=== PATIENT | female | born 1980 | race Hispanic/Latino ===

== ENCOUNTER 2018-01-10 08:48 | Emergency (ER) | payer OTHER, SELFPAY ==
[2018-01-10 08:55] VITALS: BP 150/83; PULSE 66; RESP 18; TEMP 36.4; O2SAT 99; BMI 36.1
--- NOTE | 2018-01-10 08:56 | DI.RAD.S_ITS ---
PROCEDURE: XR CHEST 1V INDICATIONS: chest pain TECHNIQUE: One view of the chest was acquired. COMPARISON: [facility], , CHEST 2 VIEW, 02/06/2014, 7:35. FINDINGS: Surgical changes and devices: None. Lungs and pleura: No pleural effusions or pneumothorax. Lungs are clear. Mediastinum: Mediastinal contours appear normal. Heart size is normal. Bones and chest wall: No suspicious bony lesions. Overlying soft tissues appear unremarkable. IMPRESSION: No significant acute abnormality is seen. Dictated by: Kevin Sanchez M.D. on 01/10/2018 at 8:13 Approved by: Kevin Sanchez M.D. on 01/10/2018 at 8:14
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
[2018-01-10 09:20] LABS: Add Manual Diff / Slide Review NO; Basophils Percent Auto 0.5 % (0-2); Eosinophils Percent Auto 2.4 % (2-4); Hematocrit 40.9 % (36-46); Hemoglobin 13.8 g/dL (12.0-16.0); Lymphocytes Percent Auto 27.9 % (25-40); Mean Corpuscular HGB Conc 33.7 % (30-36); Mean Corpuscular Hemoglobin 28.4 PG (26-34); Mean Corpuscular Volume 84.3 fL (80-100); Monocytes Percent Auto 8.3 % (3-14); Neutrophils Absolute Auto 4100 /uL (3000-5900); Neutrophils Percent Auto 60.9 % (50-75); Platelet Count 340 X10^3/uL (150-400); Red Blood Cell Count 4.85 X10^6/uL (4.0-5.2); Red Cell Distribution Width 14.2 % (11.6-14.8); White Blood Cell Count 6.7 X10^3/uL (4.5-11.0)
[2018-01-10 09:26] LABS: Blood Urea Nitrogen 12 mg/dL (7-17); Calcium 9.6 mg/dL (8.4-10.2); Carbon Dioxide 28 mmol/L (22-32); Chloride 103 mmol/L (98-107); Estimated Glomerular Filt Rate > 60.0 mL/min (>60); Glucose 99 mg/dL (70-100); HEMOLYSIS < 15 (0-50); Potassium 3.9 mmol/L (3.4-5.1); Sodium 143 mmol/L (137-145)
[2018-01-10 09:39] LABS: Troponin I < 0.012 ng/mL (0.01-0.034)
[2018-01-10 10:03] LABS: Thyroid Stimulating Hormone 5.15 uIU/mL (0.47-4.68)
[2018-01-10 10:15] VITALS: BP 132/68; PULSE 114; RESP 14; O2SAT 95
[2018-01-10 10:35] VITALS: BP 113/69; PULSE 58; RESP 17; O2SAT 99
== END 2018-01-10 10:44 | disposition home or self-care (01) ==
PROVIDERS: Emergency Provider Emergency Medicine; PCP Family Medicine
DX: R07.89 Other chest pain (principal); R79.89 Other specified abnormal findings of blood chemistry; R20.2 Paresthesia of skin
CPT/HCPCS: 36591; 71045; 80048; 84443; 84484; 85025; 93005; 93041; 99283; 99285

== ENCOUNTER 2018-07-08 00:58 | Emergency (ER) | payer OTHER, SELFPAY ==
[2018-07-08 01:05] VITALS: BP 147/85; PULSE 80; RESP 18; TEMP 36.7; O2SAT 99
[2018-07-08 02:24] LABS: Bacteria Urine None Seen; RBC Urine None Seen (0-5/HPF); WBC Urine None Seen (0-5/HPF)
[2018-07-08 02:27] LABS: Appearance Urine UA SL CLOUDY; Bilirubin Urine UA NEGATIVE (NEGATIVE); Color Urine UA YELLOW; Glucose Urine UA NEGATIVE (Negative); Ketones Urine UA NEGATIVE (NEGATIVE); Leukocyte Esterase Urine UA NEGATIVE (NEGATIVE); Nitrite Urine UA NEGATIVE (Negative); Occult Blood Urine UA TRACE-LYSED (Negative); Protein Urine UA NEGATIVE (Negative); Urobilinogen Urine UA 0.2 E.U./dL (0.2); pH Urine UA 7.5 (4.5-8.0)
[2018-07-08 02:29] LABS: Amorphous Sediment Urine 2+; Squamous Epithelial Cell Urine 0-1 /HPF
[2018-07-08 02:30] LABS: Culture Indicated Urine Cult Not Indicated
[2018-07-08 02:35] LABS: Add Manual Diff / Slide Review NO; Basophils Absolute Auto 0 /uL (0-100); Basophils Percent Auto 0.5 % (0-2); Eosinophils Absolute Auto 100 /uL (0-450); Eosinophils Percent Auto 1.1 % (2-4); Lymphocytes Absolute Auto 1800 /uL (1100-4500); Lymphocytes Percent Auto 21.6 % (25-40); Mean Corpuscular HGB Conc 33.2 % (30-36); Mean Corpuscular Volume 81.2 fL (80-100); Monocytes Absolute Auto 600 /uL (0-900); Monocytes Percent Auto 7.6 % (3-14); Neutrophils Absolute Auto 5700 /uL (1500-7000); Neutrophils Percent Auto 69.2 % (50-75); Platelet Count 310 X10^3/uL (150-400); Red Blood Cell Count 4.81 X10^6/uL (4.0-5.2); Red Cell Distribution Width 14.8 % (11.6-14.8); White Blood Cell Count 8.2 X10^3/uL (4.5-11.0)
[2018-07-08] MEDS: SODIUM CHLORIDE 0.9% 1,000 ML 1000 ML IV (02:37)
[2018-07-08] MEDS: ONDANSETRON 4 MG/2 ML INJ IV (02:37)
[2018-07-08 02:42] LABS: Alanine Aminotransferase 83 IU/L (9-52); Albumin 4.8 g/dL (3.5-5.0); Albumin Globulin Ratio 1.4 (1.0-2.8); Alkaline Phosphatase 83 U/L (38-126); Aspartate Aminotransferase 43 IU/L (14-36); Bilirubin Total 0.2 mg/dL (0.2-1.3); Blood Urea Nitrogen 12 mg/dL (7-17); Calcium 9.5 mg/dL (8.4-10.2); Carbon Dioxide 21 mmol/L (22-32); Chloride 104 mmol/L (98-107); Estimated Glomerular Filt Rate > 60.0 mL/min (>60); Globulin 3.5 g/dL (1.7-4.1); Glucose 140 mg/dL (70-100); HEMOLYSIS < 15 (0-50); Potassium 3.8 mmol/L (3.4-5.1); Sodium 138 mmol/L (137-145); Total Protein 8.3 g/dL (6.3-8.2)
--- NOTE | 2018-07-08 03:06 | DI.CT.S_ITS ---
PROCEDURE: CT ABDOMEN PELVIS W CON INDICATIONS: Left lower quadrant abdominal pain TECHNIQUE: After the administration of intravenous contrast, 5 mm thick sections acquired from the diaphragm to the symphysis. 5 mm coronal and sagittal reformats were acquired. For radiation dose reduction, the following was used: automated exposure control, adjustment of mA and/or kV according to patient size. COMPARISON: [facility], CT, PE STUDY (CTA CHEST), 02/06/2014, 8:18. [facility], CT, ABDOMEN W&WO CONTRAST, 06/03/2017, 15:32. FINDINGS: Image quality: Excellent. ABDOMEN: Lung bases: A stable 5 mm noncalcified left lower lobe nodule (axial image 11, series 3). Lung bases are otherwise clear. Heart size is normal. Solid organs: Liver is normal in size and enhancement. Gallbladder is normal in CT appearance.. Biliary system is non dilated. Pancreas enhances normally. Spleen is normal in size and enhancement. There are 2 adrenal nodules as before. The larger, more lateral adrenal nodule is stable in appearance measuring approximately 4.2 x 3.7 cm. The smaller, more medial nodule measures approximately 2.1 x 1.7 cm. Both are stable in size. Kidneys demonstrate normal size and enhancement, without hydronephrosis. Stable appearance of small right renal hypodensities which are too small to accurately characterize but likely represent cysts. Peritoneum and bowel: Bowel loops demonstrate normal wall thickness and caliber. No free fluid or air. Numerous fluid filled loops of small bowel are noted throughout the abdomen. Short segment of mildly distended small bowel in the left lower abdomen. The visualized appendix appears normal. Nodes and vessels: No retroperitoneal or mesenteric adenopathy by size criteria. Aorta and inferior vena cava are normal in size. Miscellaneous: There is a fat containing umbilical hernia without acute inflammation. PELVIS: Genitourinary: Bladder wall thickness is normal. Miscellaneous: No inguinal hernias or adenopathy. Bones: No suspicious bony lesions. No vertebral body compression fractures. IMPRESSION: 1. Several loops of fluid-filled small bowel and a short segment of mildly distended small bowel in the left lower abdomen is nonspecific and may represent enteritis, either infectious or inflammatory in etiology. Distended segment of bowel may be related to ileus secondary to an inflammatory/infectious process. No evidence for bowel obstruction. 2. Other chronic findings as described above also appear stable. Of note, the noncalcified 5 mm left lower lobe pulmonary nodule has remained stable since 02/06/2014 and is consistent with a benign process. Findings are concordant with preliminary radiology report. Dictated by: Eric Desai M.D. on 07/08/2018 at 8:24 Approved by: Eric Desai M.D. on 07/08/2018 at 9:00
--- NOTE | 2018-07-08 03:08 | ED.ABDPAIN ---
HPI - Abdominal Pain General Chief Complaint: Abdominal Pain Stated Complaint: severe abd pain, vomitting Time Seen by Provider: 07/08/18 02:50 Source: patient Mode of arrival: ambulatory Limitations: no limitations History of Present Illness HPI narrative: Patient complains of left lower quadrant abdominal pain that started suddenly at 7 o'clock this morning. Patient states that she has been vomiting. She denies diarrhea or other change in bowel habits. No dysuria or hematuria. Patient has no history of kidney stones. She does have a history of of ovarian cysts, but has never had a rupture. Patient denies any fevers or chills. She has states she has been shaking from the pain, but has not actually felt chilled. The patient states she is otherwise healthy. She has given 4 children, and her last period was about a week ago. Patient does not think she is . Patient states that no kidney stones from the family, though her mother did have a bowel obstruction repeatedly. Related Data Home Medications Medication Instructions Recorded Confirmed multivitamin 1 tab PO DAILY 01/10/18 07/08/18 Previous Rx's Medication Instructions Recorded hydrocodone-acetaminophen 1 tab PO Q4-6H PRN #14 tab 07/08/18 ondansetron 4 mg PO QID PRN #20 tab 07/08/18 Allergies Allergy/AdvReac Type Severity Reaction Status Date / Time Influenza Virus Vaccines AdvReac Mild GOT REALLY Unverified 07/07/18 10:58 [INFLUENZA VIRUS VACCINES] SICK levofloxacin [LEVOFLOXACIN] AdvReac Mild DIZZY/VOMIT Verified 07/07/18 10:58 ING Penicillins [PENICILLINS] AdvReac Mild DIZZY/VOMIT Verified 07/07/18 10:58 ING Review of Systems Constitutional Denies chills, Denies fever(s), Denies lethargy and Denies weakness Eyes Denies change in vision, Denies eye discharge, Denies irritation and Denies loss of vision ENT Ears, Nose, Mouth, and Throat: Denies change in voice, Denies neck pain and Denies sore throat Cardiovascular Denies chest pain, Denies irregular heart rhythm, Denies lightheadedness, Denies palpitations, Denies dyspnea, Denies dyspnea on exertion and Denies orthopnea Respiratory Denies cough, Denies dyspnea, Denies dyspnea on exertion and Denies wheezing Gastrointestinal Gastrointestinal: Reports abdominal pain, Denies change in bowel habits, Denies diarrhea, Denies nausea and Reports vomiting Genitourinary Denies hematuria, Denies flank pain, Denies urinary incontinence and Denies urinary urgency Musculoskeletal Denies neck pain Integumentary/Breasts Denies pruritus, Denies erythema, Denies rash and Denies wounds Neurologic Denies confusion, Denies loss of vision and Denies weakness Psychiatric Denies anxiety, Denies confusion, Denies depression, Denies homicidal ideation and Denies suicidal ideation Endocrine Denies palpitations Hematologic/Lymphatic Denies easy bruising Allergic/Immunologic Denies wheezing [facility] Medical History Healthy adult (Acute) Surgical History History of third molar tooth extraction History of tonsillectomy Social History Smoking Status: Never smoker alcohol intake: current (occasionally) Social History Smoking Status: Never smoker alcohol intake: current Exam Initial Vital Signs Initial Vital Signs: Vital Signs Temperature 98.1 F 07/08/18 01:05 Pulse Rate 80 07/08/18 01:05 Respiratory Rate 18 07/08/18 01:05 Blood Pressure 147/85 H 07/08/18 01:05 Pulse Oximetry 99 07/08/18 01:05 Const General: cooperative and well developed Nutritional Appearance: well nourished Orientation: alert, awake, oriented x3 and not confused [facility] Head: normocephalic and atraumatic Ears: external ears normal Nose: external nose normal and No nasal discharge Face and sinus: face symmetric and No dry mucous membranes Mouth: oral mucosae normal and moist mucous membranes Teeth and gingiva: dentition normal Eyes General: appearance normal, both eyes and all related structures Eyelids: eyelids normal Conjunctivae: conjunctivae normal Sclera: sclerae normal Pupils: PERRL EOM: EOM intact bilaterally Neck Neck: normal visual inspection, trachea midline, No lymphadenopathy, No midline deformity and No JVD Lymphatic: No lymphedema Chest Chest: normal inspection of the chest Resp Effort & Inspection: normal respiratory effort, able to speak in complete sentences, no respiratory distress and no use of accessory muscles Auscultation: clear to auscultation bilaterally, no rales, no rhonchi and no wheezes Cardio Rate: regular rate Rhythm: regular rhythm Heart Sounds: no click, no gallops, no murmurs and no rubs Pulses: normal peripheral pulses GI Inspection: non-distended Palpation: soft, no hepatosplenomegaly, No guarding, No pulsatile mass and tender (Moderate, left lower quadrant.) Back/Spine/Pelvis Back: No CVA tenderness Cervical Spine: cervical ROM normal and No pain with cervical ROM Thoracic/Lumbar Spine: thoracic and lumbar spine normal to inspection Skin General: no rashes or lesions noted, No jaundice and No petechiae Neuro General: alert, oriented x3, gait normal and no focal motor deficits Speech: speech normal Extrem General: full ROM, no clubbing, cyanosis or edema, no pedal edema and no calf tenderness Psych Appearance: well kempt Mental Status: mental status grossly normal Attitude: cooperative Thought Content: normal and suicidality Judgment: judgment good Course Course Narrative: Patient was generally well appearing, but did appear somewhat uncomfortable. She was given analgesia and antiemetics, as well as a L bolus 0.9 normal saline. She was worked up with labs, urinalysis, and CT of the abdomen and pelvis. Patient's entire workup was unremarkable. I discussed this with the patient, and we did discuss possible etiologies for the discomfort. The only finding on her CT was a possible mild ileus and her colon. This may be causing some discomfort, particularly when the patient eats. We have discussed high-fiber diet as well as drinking plenty of fluids. We have also discussed decreasing meat in the patient's diet. At this point, I felt the patient was stable for discharge home. She was feeling better after symptomatic intervention. We have discussed the usual indications for return. Orders Ordered: Discontinued Medications Hydromorphone HCl (Dilaudid) 0.5 mg IV NOW ONE Stop: 07/08/18 05:28 Last Admin: 07/08/18 05:34 Dose: 0.5 mg Sodium Chloride (Normal Saline 0.9%) 1,000 mls @ 1,000 mls/hr IV BOLUS ONE Stop: 07/08/18 02:54 Last Infusion: 07/08/18 04:00 Dose: 0 mls/hr Admin: 07/08/18 02:37 Dose: 1,000 mls/hr Ketorolac Tromethamine (Toradol) 30 mg IV NOW ONE Stop: 07/08/18 04:44 Last Admin: 07/08/18 04:46 Dose: 30 mg Ondansetron HCl (Zofran) 4 mg IV NOW ONE Stop: 07/08/18 01:56 Last Admin: 07/08/18 02:37 Dose: 4 mg Vital Signs - 8 hr 07/08/18 01:05 Temperature 98.1 F Pulse Rate 80 Respiratory Rate 18 Blood Pressure 147/85 H Pulse Oximetry 99 MDM - Abdominal Pain Medical Records Attestation: I reviewed the patient's medical records. Lab Data Attestation: I reviewed the patient's lab results. Result diagrams: 07/08/18 02:20 07/08/18 02:20 Lab Results 07/08/18 07/08/18 07/08/18 Range/Units 01:20 02:20 02:20 WBC 8.2 (4.5-11.0) X10^3/uL RBC 4.81 (4.0-5.2) X10^6/uL Hgb 13.0 (12.0-16.0) g/dL Hct 39.0 (36-46) % MCV 81.2 (80-100) fL MCH 27.0 (26-34) PG MCHC 33.2 (30-36) % RDW 14.8 (11.6-14.8) % Plt Count 310 (150-400) X10^3/uL Neut % (Auto) 69.2 (50-75) % Lymph % (Auto) 21.6 L (25-40) % [place] % (Auto) 7.6 (3-14) % Eos % (Auto) 1.1 L (2-4) % Baso % (Auto) 0.5 (0-2) % Neut # (Auto) 5700 (0479-9680) /uL Lymph # (Auto) 1800 (8561-2663) /uL [place] # (Auto) 600 (0-900) /uL Eos # (Auto) 100 (0-450) /uL Baso # (Auto) 0 (0-100) /uL Sodium 138 (137-145) mmol/L Potassium 3.8 (3.4-5.1) mmol/L Chloride 104 (98-107) mmol/L Carbon Dioxide 21 L (22-32) mmol/L BUN 12 (7-17) mg/dL Creatinine 0.60 (0.52-1.04) mg/dL Estimated GFR > 60.0 (>60) mL/min BUN/Creatinine Ratio 20.0 (6-22) Glucose 140 H (70-100) mg/dL Calcium 9.5 (8.4-10.2) mg/dL Total Bilirubin 0.2 (0.2-1.3) mg/dL AST 43 H (14-36) IU/L ALT 83 H (9-52) IU/L Alkaline Phosphatase 83 (38-126) U/L Total Protein 8.3 H (6.3-8.2) g/dL Albumin 4.8 (3.5-5.0) g/dL Globulin 3.5 (1.7-4.1) g/dL Albumin/Globulin Ratio 1.4 (1.0-2.8) Urine Color Yellow Urine Appearance Sl cloudy Urine pH 7.5 (4.5-8.0) Ur Specific [place] 1.020 (1.000-1.035) Urine Protein Negative (Negative) Urine Glucose (UA) Negative (Negative) g/dL Urine Ketones Negative (NEGATIVE) Urine Occult Blood Trace-lysed (Negative) Urine Nitrate Negative (Negative) Urine Bilirubin Negative (NEGATIVE) Urine Urobilinogen 0.2 (0.2) E.U./dL Ur Leukocyte Esterase Negative (NEGATIVE) Urine RBC None seen (0-5/HPF) Urine WBC None seen (0-5/HPF) Ur Squamous Epith Cells 0-1 /hpf Amorphous Sediment 2+ Urine Bacteria None seen (None) Ur Culture Indicated? Cult not indicated Point of care testing: Urine Dip Bedside Urine Glucose Negative Bedside Urine Bilirubin - Negative Bedside Urine Ketone - Negative Urine Specific [place] 1.015 Bedside Urine Occult Blood - Negative Bedside Urine pH 8.0 Bedside Urine Protein +/- 15 Bedside Urine Urobilinogen - Negative Bedside Urine Nitrite - Negative Bedside Urine Leukocytes - Negative Esterase Imaging Data CT scan - abdomen: Radiologist's impression: CT Scan Report Signed Patient: Nadira Guerrier [facility]#: [id number] : 1980Acct:[id number] Age/Sex: 38 / FDate of Service: 07/08/18 Loc: ED Accession Number: [id number] Procedure: CT abdomen pelvis w con Ordering Provider: Chitra Bliss MD PROCEDURE: CT ABDOMEN PELVIS W CON INDICATIONS: Left lower quadrant abdominal pain TECHNIQUE: After the administration of intravenous contrast, 5 mm thick sections acquired from the diaphragm to the symphysis. 5 mm coronal and sagittal reformats were acquired. For radiation dose reduction, the following was used: automated exposure control, adjustment of mA and/or kV according to patient size. COMPARISON: Merged With [facility], CT, PE STUDY (CTA CHEST), 02/06/2014, 8:18. Merged With [facility], CT, ABDOMEN W&WO CONTRAST, 06/03/2017, 15:32. FINDINGS: Image quality: Excellent. ABDOMEN: Lung bases: A stable 5 mm noncalcified left lower lobe nodule (axial image 11, series 3). Lung bases are otherwise clear. Heart size is normal. Solid organs: Liver is normal in size and enhancement. Gallbladder is normal in CT appearance.. Biliary system is non dilated. Pancreas enhances normally. Spleen is normal in size and enhancement. There are 2 adrenal nodules as before. The larger, more lateral adrenal nodule is stable in appearance measuring approximately 4.2 x 3.7 cm. The smaller, more medial nodule measures approximately 2.1 x 1.7 cm. Both are stable in size. Kidneys demonstrate normal size and enhancement, without hydronephrosis. Stable appearance of small right renal hypodensities which are too small to accurately characterize but likely represent cysts. Peritoneum and bowel: Bowel loops demonstrate normal wall thickness and caliber. No free fluid or air. Numerous fluid filled loops of small bowel are noted throughout the abdomen. Short segment of mildly distended small bowel in the left lower abdomen. The visualized appendix appears normal. Nodes and vessels: No retroperitoneal or mesenteric adenopathy by size criteria. Aorta and inferior vena cava are normal in size. Miscellaneous: There is a fat containing umbilical hernia without acute inflammation. PELVIS: Genitourinary: Bladder wall thickness is normal. Miscellaneous: No inguinal hernias or adenopathy. Bones: No suspicious bony lesions. No vertebral body compression fractures. IMPRESSION: 1. Several loops of fluid-filled small bowel and a short segment of mildly distended small bowel in the left lower abdomen is nonspecific and may represent enteritis, either infectious or inflammatory in etiology. Distended segment of bowel may be related to ileus secondary to an inflammatory/infectious process. No evidence for bowel obstruction. 2. Other chronic findings as described above also appear stable. Of note, the noncalcified 5 mm left lower lobe pulmonary nodule has remained stable since 02/06/2014 and is consistent with a benign process. Findings are concordant with preliminary radiology report. Dictated by: Eric Desai M.D. on 07/08/2018 at 8:24 Approved by: Eric Desai M.D. on 07/08/2018 at 9:00 Discharge Plan Departure Patient Disposition: Home Clinical Impression: Abdominal pain Qualifiers: Abdominal location: left lower quadrant Qualified Code(s): R10.32 - Left lower quadrant pain Discharge Date/Time: 07/08/18 05:50 Interventions: ED Discharge Assessment Last Done: 07/08/18 05:50 Instructions: DI for Abdominal Pain-Adult Activity Restrictions/Additional Instructions: Urine labs show a normal white blood cell count and a normal urinalysis. Additionally, your CT scan looks great. There is no evidence of a serious condition causing your pain. The cause of your pain is not clear. Please take the medication, as needed. If your symptoms worsen, please follow up with your doctor for further evaluation. Prescriptions: New ondansetron 4 mg tablet,disintegrating 4 mg PO QID PRN (Reason: nausea and vomiting) Qty: 20 RF: 0 hydrocodone-acetaminophen 5-325 mg tablet 1 tab PO Q4-6H PRN (Reason: pain) Qty: 14 RF: 0 No Action multivitamin Tablet 1 tab PO DAILY RF: 0 Referrals: Sylwia Portillo DO [Primary Care Provider] -
--- NOTE | 2018-07-08 03:13 | ED_ITS ---
HPI - Abdominal Pain General Chief Complaint: Abdominal Pain Stated Complaint: severe abd pain, vomitting Time Seen by Provider: 07/08/18 02:50 Source: patient Mode of arrival: ambulatory Limitations: no limitations History of Present Illness HPI narrative: Patient complains of left lower quadrant abdominal pain that started suddenly at 7 o'clock this morning. Patient states that she has been vomiting. She denies diarrhea or other change in bowel habits. No dysuria or hematuria. Patient has no history of kidney stones. She does have a history of of ovarian cysts, but has never had a rupture. Patient denies any fevers or chills. She has states she has been shaking from the pain, but has not actually felt chilled. The patient states she is otherwise healthy. She has given 4 children, and her last period was about a week ago. Patient does not think she is . Patient states that no kidney stones from the family, though her mother did have a bowel obstruction repeatedly. Related Data Home Medications Medication Instructions Recorded Confirmed multivitamin 1 tab PO DAILY 01/10/18 07/08/18 Previous Rx's Medication Instructions Recorded hydrocodone-acetaminophen 1 tab PO Q4-6H PRN #14 tab 07/08/18 ondansetron 4 mg PO QID PRN #20 tab 07/08/18 Allergies Allergy/AdvReac Type Severity Reaction Status Date / Time Influenza Virus Vaccines AdvReac Mild GOT REALLY Unverified 07/07/18 10:58 [INFLUENZA VIRUS VACCINES] SICK levofloxacin [LEVOFLOXACIN] AdvReac Mild DIZZY/VOMIT Verified 07/07/18 10:58 ING Penicillins [PENICILLINS] AdvReac Mild DIZZY/VOMIT Verified 07/07/18 10:58 ING Review of Systems Constitutional Denies chills, Denies fever(s), Denies lethargy and Denies weakness Eyes Denies change in vision, Denies eye discharge, Denies irritation and Denies loss of vision ENT Ears, Nose, Mouth, and Throat: Denies change in voice, Denies neck pain and Denies sore throat Cardiovascular Denies chest pain, Denies irregular heart rhythm, Denies lightheadedness, Denies palpitations, Denies dyspnea, Denies dyspnea on exertion and Denies orthopnea Respiratory Denies cough, Denies dyspnea, Denies dyspnea on exertion and Denies wheezing Gastrointestinal Gastrointestinal: Reports abdominal pain, Denies change in bowel habits, Denies diarrhea, Denies nausea and Reports vomiting Genitourinary Denies hematuria, Denies flank pain, Denies urinary incontinence and Denies urinary urgency Musculoskeletal Denies neck pain Integumentary/Breasts Denies pruritus, Denies erythema, Denies rash and Denies wounds Neurologic Denies confusion, Denies loss of vision and Denies weakness Psychiatric Denies anxiety, Denies confusion, Denies depression, Denies homicidal ideation and Denies suicidal ideation Endocrine Denies palpitations Hematologic/Lymphatic Denies easy bruising Allergic/Immunologic Denies wheezing [facility] Medical History Healthy adult (Acute) Surgical History History of third molar tooth extraction History of tonsillectomy Social History Smoking Status: Never smoker alcohol intake: current (occasionally) Social History Smoking Status: Never smoker alcohol intake: current Exam Initial Vital Signs Initial Vital Signs: Vital Signs Temperature 98.1 F 07/08/18 01:05 Pulse Rate 80 07/08/18 01:05 Respiratory Rate 18 07/08/18 01:05 Blood Pressure 147/85 H 07/08/18 01:05 Pulse Oximetry 99 07/08/18 01:05 Const General: cooperative and well developed Nutritional Appearance: well nourished Orientation: alert, awake, oriented x3 and not confused [facility] Head: normocephalic and atraumatic Ears: external ears normal Nose: external nose normal and No nasal discharge Face and sinus: face symmetric and No dry mucous membranes Mouth: oral mucosae normal and moist mucous membranes Teeth and gingiva: dentition normal Eyes General: appearance normal, both eyes and all related structures Eyelids: eyelids normal Conjunctivae: conjunctivae normal Sclera: sclerae normal Pupils: PERRL EOM: EOM intact bilaterally Neck Neck: normal visual inspection, trachea midline, No lymphadenopathy, No midline deformity and No JVD Lymphatic: No lymphedema Chest Chest: normal inspection of the chest Resp Effort & Inspection: normal respiratory effort, able to speak in complete sentences, no respiratory distress and no use of accessory muscles Auscultation: clear to auscultation bilaterally, no rales, no rhonchi and no wheezes Cardio Rate: regular rate Rhythm: regular rhythm Heart Sounds: no click, no gallops, no murmurs and no rubs Pulses: normal peripheral pulses GI Inspection: non-distended Palpation: soft, no hepatosplenomegaly, No guarding, No pulsatile mass and tender (Moderate, left lower quadrant.) Back/Spine/Pelvis Back: No CVA tenderness Cervical Spine: cervical ROM normal and No pain with cervical ROM Thoracic/Lumbar Spine: thoracic and lumbar spine normal to inspection Skin General: no rashes or lesions noted, No jaundice and No petechiae Neuro General: alert, oriented x3, gait normal and no focal motor deficits Speech: speech normal Extrem General: full ROM, no clubbing, cyanosis or edema, no pedal edema and no calf tenderness Psych Appearance: well kempt Mental Status: mental status grossly normal Attitude: cooperative Thought Content: normal and suicidality Judgment: judgment good Course Course Narrative: Patient was generally well appearing, but did appear somewhat uncomfortable. She was given analgesia and antiemetics, as well as a L bolus 0.9 normal saline. She was worked up with labs, urinalysis, and CT of the abdomen and pelvis. Patient's entire workup was unremarkable. I discussed this with the patient, and we did discuss possible etiologies for the discomfort. The only finding on her CT was a possible mild ileus and her colon. This may be causing some discomfort, particularly when the patient eats. We have discussed high-fiber diet as well as drinking plenty of fluids. We have also discussed decreasing meat in the patient's diet. At this point, I felt the patient was stable for discharge home. She was feeling better after symptomatic intervention. We have discussed the usual indications for return. Orders Ordered: Discontinued Medications Hydromorphone HCl (Dilaudid) 0.5 mg IV NOW ONE Stop: 07/08/18 05:28 Last Admin: 07/08/18 05:34 Dose: 0.5 mg Sodium Chloride (Normal Saline 0.9%) 1,000 mls @ 1,000 mls/hr IV BOLUS ONE Stop: 07/08/18 02:54 Last Infusion: 07/08/18 04:00 Dose: 0 mls/hr Admin: 07/08/18 02:37 Dose: 1,000 mls/hr Ketorolac Tromethamine (Toradol) 30 mg IV NOW ONE Stop: 07/08/18 04:44 Last Admin: 07/08/18 04:46 Dose: 30 mg Ondansetron HCl (Zofran) 4 mg IV NOW ONE Stop: 07/08/18 01:56 Last Admin: 07/08/18 02:37 Dose: 4 mg Vital Signs - 8 hr 07/08/18 01:05 Temperature 98.1 F Pulse Rate 80 Respiratory Rate 18 Blood Pressure 147/85 H Pulse Oximetry 99 MDM - Abdominal Pain Medical Records Attestation: I reviewed the patient's medical records. Lab Data Attestation: I reviewed the patient's lab results. Result diagrams: 07/08/18 02:20 07/08/18 02:20 Lab Results 07/08/18 07/08/18 07/08/18 Range/Units 01:20 02:20 02:20 WBC 8.2 (4.5-11.0) X10^3/uL RBC 4.81 (4.0-5.2) X10^6/uL Hgb 13.0 (12.0-16.0) g/dL Hct 39.0 (36-46) % MCV 81.2 (80-100) fL MCH 27.0 (26-34) PG MCHC 33.2 (30-36) % RDW 14.8 (11.6-14.8) % Plt Count 310 (150-400) X10^3/uL Neut % (Auto) 69.2 (50-75) % Lymph % (Auto) 21.6 L (25-40) % [place] % (Auto) 7.6 (3-14) % Eos % (Auto) 1.1 L (2-4) % Baso % (Auto) 0.5 (0-2) % Neut # (Auto) 5700 (0984-4642) /uL Lymph # (Auto) 1800 (4792-6419) /uL [place] # (Auto) 600 (0-900) /uL Eos # (Auto) 100 (0-450) /uL Baso # (Auto) 0 (0-100) /uL Sodium 138 (137-145) mmol/L Potassium 3.8 (3.4-5.1) mmol/L Chloride 104 (98-107) mmol/L Carbon Dioxide 21 L (22-32) mmol/L BUN 12 (7-17) mg/dL Creatinine 0.60 (0.52-1.04) mg/dL Estimated GFR > 60.0 (>60) mL/min BUN/Creatinine Ratio 20.0 (6-22) Glucose 140 H (70-100) mg/dL Calcium 9.5 (8.4-10.2) mg/dL Total Bilirubin 0.2 (0.2-1.3) mg/dL AST 43 H (14-36) IU/L ALT 83 H (9-52) IU/L Alkaline Phosphatase 83 (38-126) U/L Total Protein 8.3 H (6.3-8.2) g/dL Albumin 4.8 (3.5-5.0) g/dL Globulin 3.5 (1.7-4.1) g/dL Albumin/Globulin Ratio 1.4 (1.0-2.8) Urine Color Yellow Urine Appearance Sl cloudy Urine pH 7.5 (4.5-8.0) Ur Specific [place] 1.020 (1.000-1.035) Urine Protein Negative (Negative) Urine Glucose (UA) Negative (Negative) g/dL Urine Ketones Negative (NEGATIVE) Urine Occult Blood Trace-lysed (Negative) Urine Nitrate Negative (Negative) Urine Bilirubin Negative (NEGATIVE) Urine Urobilinogen 0.2 (0.2) E.U./dL Ur Leukocyte Esterase Negative (NEGATIVE) Urine RBC None seen (0-5/HPF) Urine WBC None seen (0-5/HPF) Ur Squamous Epith Cells 0-1 /hpf Amorphous Sediment 2+ Urine Bacteria None seen (None) Ur Culture Indicated? Cult not indicated Point of care testing: Urine Dip Bedside Urine Glucose Negative Bedside Urine Bilirubin - Negative Bedside Urine Ketone - Negative Urine Specific [place] 1.015 Bedside Urine Occult Blood - Negative Bedside Urine pH 8.0 Bedside Urine Protein +/- 15 Bedside Urine Urobilinogen - Negative Bedside Urine Nitrite - Negative Bedside Urine Leukocytes - Negative Esterase Imaging Data CT scan - abdomen: Radiologist's impression: CT Scan Report Signed Patient: Nadira Guerrier [facility]#: [id number] : 1980Acct:[id number] Age/Sex: 38 / FDate of Service: 07/08/18 Loc: ED Accession Number: [id number] Procedure: CT abdomen pelvis w con Ordering Provider: Chitra Bliss MD PROCEDURE: CT ABDOMEN PELVIS W CON INDICATIONS: Left lower quadrant abdominal pain TECHNIQUE: After the administration of intravenous contrast, 5 mm thick sections acquired from the diaphragm to the symphysis. 5 mm coronal and sagittal reformats were acquired. For radiation dose reduction, the following was used: automated exposure control, adjustment of mA and/or kV according to patient size. COMPARISON: [facility], CT, PE STUDY (CTA CHEST), 02/06/2014, 8:18. [facility], CT, ABDOMEN W&WO CONTRAST, 06/03/2017, 15:32. FINDINGS: Image quality: Excellent. ABDOMEN: Lung bases: A stable 5 mm noncalcified left lower lobe nodule (axial image 11, series 3). Lung bases are otherwise clear. Heart size is normal. Solid organs: Liver is normal in size and enhancement. Gallbladder is normal in CT appearance.. Biliary system is non dilated. Pancreas enhances normally. Spleen is normal in size and enhancement. There are 2 adrenal nodules as before. The l arger, more lateral adrenal nodule is stable in appearance measuring approximately 4.2 x 3.7 cm. The smaller, more medial nodule measures approximately 2.1 x 1.7 cm. Both are stable in size. Kidneys demonstrate normal size and enhancement, without hydronephrosis. Stable appearance of small right renal hypodensities which are too small to accurately characterize but likely represent cysts. Peritoneum and bowel: Bowel loops demonstrate normal wall thickness and caliber. No free fluid or air. Numerous fluid filled loops of small bowel are noted throughout the abdomen. Short segment of mildly distended small bowel in the left lower abdomen. The visualized appendix appears normal. Nodes and vessels: No retroperitoneal or mesenteric adenopathy by size criteria. Aorta and inferior vena cava are normal in size. Miscellaneous: There is a fat containing umbilical hernia without acute inflammation. PELVIS: Genitourinary: Bladder wall thickness is normal. Miscellaneous: No inguinal hernias or adenopathy. Bones: No suspicious bony lesions. No vertebral body compression fractures. IMPRESSION: 1. Several loops of fluid-filled small bowel and a short segment of mildly distended small bowel in the left lower abdomen is nonspecific and may represent enteritis, either infectious or inflammatory in etiology. Distended segment of bowel may be re lated to ileus secondary to an inflammatory/infectious process. No evidence for bowel obstruction. 2. Other chronic findings as described above also appear stable. Of note, the noncalcified 5 mm left lower lobe pulmonary nodule has remained stable since 02/06/2014 and is consistent with a benign process. Findings are concordant with preliminary radiology report. Dictated by: Eric Desai M.D. on 07/08/2018 at 8:24 Approved by: Eric Desai M.D. on 07/08/2018 at 9:00 Discharge Plan Departure Patient Disposition: Home Clinical Impression: Abdominal pain Qualifiers: Abdominal location: left lower quadrant Qualified Code(s): R10.32 - Left lower quadrant pain Discharge Date/Time: 07/08/18 05:50 Interventions: ED Discharge Assessment Last Done: 07/08/18 05:50 Instructions: DI for Abdominal Pain-Adult Activity Restrictions/Additional Instructions: Urine labs show a normal white blood cell count and a normal urinalysis. Additionally, your CT scan looks great. There is no evidence of a serious condition causing your pain. The cause of your pain is not clear. Please take the medication, as needed. If your symptoms worsen, please follow up with your doctor for further evaluation. Prescriptions: New ondansetron 4 mg tablet,disintegrating 4 mg PO QID PRN (Reason: nausea and vomiting) Qty: 20 RF: 0 hydrocodone-acetaminophen 5-325 mg tablet 1 tab PO Q4-6H PRN (Reason: pain) Qty: 14 RF: 0 No Action multivitamin Tablet 1 tab PO DAILY RF: 0 Referrals: Sylwia Portillo DO [Primary Care Provider] -
[2018-07-08] MEDS: KETOROLAC 60 MG/2 ML VIAL 30 MG IV (04:46)
[2018-07-08 04:55] VITALS: BP 117/63; PULSE 68; RESP 16; O2SAT 97
[2018-07-08] MEDS: HYDROMORPHONE 1 MG INJ 0.5 MG IV (05:34)
== END 2018-07-08 05:50 | disposition home or self-care (01) ==
PROVIDERS: Emergency Provider Emergency Medicine; PCP Family Medicine
DX: R10.32 Left lower quadrant pain (principal)
CPT/HCPCS: 36591; 74177; 80053; 81001; 81003; 85025; 96361; 96374; 96375; 99283; 99284; J1170; J1885; J2405; Q9967

== ENCOUNTER → 2018-10-07 12:47 | Outpatient (CLI) | payer OTHER, SELFPAY ==
--- NOTE | 2018-10-07 12:50 | DI.US.S_ITS ---
LIMITED ULTRASOUND OF RIGHT BREAST: 10/07/2018 CLINICAL: Bilat nipple discharge. [facility] Real-time ultrasound of the right breast retroareolar was performed on the area of interest. IMPRESSION: NEGATIVE There is no sonographic evidence of malignancy. There is no abnormality seen in the right breast to correspond with the discharge from the nipple in the sub-areolar depth, however, clinical followup is recommended. A 1 year screening mammogram is recommended. This exam was interpreted at Station ID: [id number]. Electronically Signed By: Bennie chaidez/[place]:10/17/2018 07:49:56 letter sent: Clinical Evaluation Ultrasound BI-RADS: 1 Negative
--- NOTE | 2018-10-07 12:50 | DI.MG.S_ITS ---
BILATERAL DIGITAL DIAGNOSTIC MAMMOGRAM 3D/2D: 10/07/2018 CLINICAL: Baseline exam. Bilateral nipple discharge and Left breast pain. No prior exams were available for comparison. There are scattered fibroglandular elements in both breasts. No significant masses, calcifications, or other findings are seen in either breast. IMPRESSION: INCOMPLETE: NEEDS ADDITIONAL IMAGING EVALUATION There is no abnormality seen in either breast to correspond with the discharge from the nipple in the sub-areolar depth, however, ultrasound is recommended. This exam was interpreted at Station ID: [id number]. NOTE: For mammograms, a report in lay terms will be sent to the patient. Approximately 15% of breast malignancies will not be visualized mammographically. In the management of a palpable breast mass, a negative mammogram must not discourage biopsy of a clinically suspicious lesion. Electronically Signed By: Bennie chaidez/[place]:10/07/2018 13:30:28 ACR BI-RADS Category 0: Incomplete [id number]
--- NOTE | 2018-10-07 12:50 | DI.US.S_ITS ---
LIMITED ULTRASOUND OF LEFT BREAST: 10/07/2018 CLINICAL: Bilat nipple discharge, lt nipple pain. [facility] is [facility] Real-time ultrasound of the left breast retroareolar was performed on the area of interest. IMPRESSION: NEGATIVE There is no sonographic evidence of malignancy. There is no abnormality seen in the left breast to correspond with the discharge from the nipple and pain in the sub-areolar depth, however, clinical followup is recommended. A 1 year screening mammogram is recommended. This exam was interpreted at Station ID: [id number]. Electronically Signed By: Bennie chaidez/[place]:10/17/2018 07:50:37 letter sent: Clinical Evaluation Ultrasound BI-RADS: 1 Negative
== END ==
PROVIDERS: PCP Family Medicine; Visit Provider Nurse Practitioner Family
DX: R92.8 Other abnormal and inconclusive findings on diagnostic imaging of breast (principal); N64.52 Nipple discharge; N64.4 Mastodynia
CPT/HCPCS: 76642; 77066; G0279

== ENCOUNTER → 2018-10-18 15:20 | Outpatient (CLI) | payer OTHER, SELFPAY ==
[2018-10-18 16:33] LABS: BUN Creatinine Ratio 17.1 (6-22); Blood Urea Nitrogen 12 mg/dL (7-17); Calcium 9.5 mg/dL (8.4-10.2); Carbon Dioxide 26 mmol/L (22-32); Chloride 104 mmol/L (98-107); Estimated Glomerular Filt Rate > 60.0 mL/min (>60); Glucose 88 mg/dL (70-100); HEMOLYSIS < 15 (0-50); Potassium 4.1 mmol/L (3.4-5.1); Sodium 140 mmol/L (137-145)
[2018-10-18 17:04] LABS: TSH w/ Reflex to FT4 1.14 uIU/mL (0.47-4.68)
== END ==
PROVIDERS: PCP Family Medicine; Visit Provider Nurse Practitioner Family
DX: N64.52 Nipple discharge (principal)
CPT/HCPCS: 36415; 80048; 84146; 84443

== ENCOUNTER → 2019-03-20 10:55 | Outpatient (CLI) | payer OTHER, SELFPAY | PROVIDERS: PCP Family Medicine | DX: Z23 Encounter for immunization (principal) | CPT/HCPCS: 90471; 90686 ==

== ENCOUNTER 2019-06-28 18:11 | Emergency (ER) | payer OTHER, SELFPAY ==
[2019-06-28 18:26] VITALS: BP 173/76; PULSE 76; RESP 20; TEMP 36.6; O2SAT 100
--- NOTE | 2019-06-28 18:34 | ED_ITS ---
HPI - Arrhythmia/Palpitations General Chief Complaint: Arrhythmia/Palpitations Stated Complaint: palpitations, shoulder pain Time Seen by Provider: 06/28/19 18:34 Source: patient and family Mode of arrival: Ambulatory Limitations: no limitations History of Present Illness HPI narrative: This is a 39-year-old female comes emergency department with complaint of palpitations. She occasionally will feel an extra beat although today she had several extra beats in a row. She also feels sort of tight in between her shoulder blades. She states she tried some stretching and did not find it helpful. She has been doing a lot of online classes and states this might be causing some of the back discomfort because she sitting in a computer for long periods of time. She has not had any fevers, she denies any chills, she denies any cough cold or congestion. She denies any anterior chest pain except when she lay down made her feel little bit uncomfortable. She has not had any shortness of breath currently. She does not have any symptoms currently at this time. She denies any vomiting she states she has maybe felt a little nauseated or just ?achy in her stomach?. She has not had any abdominal pain. She has had a little bit urinary frequency but no dysuria urgency or incontinence. She was slightly constipated but had some veins and that resolved. She has not any swelling in her extremities. She denies any medical issues other than having retic fevers a kid, she was hospitalized had antibiotics had ultrasound was told everything was fine with her heart otherwise. She states she was told this was because she had a strep infection was not caught and ultimately led to this. She had a surgical tonsillectomy, penicillin allergy with no tobacco, rare alcohol, no illicit. Patient does not have any other family history no cardiac, cardiac arrhythmias, pulmonary or embolic history. Related Data Home Medications Medication Instructions Recorded Confirmed multivitamin 1 tab PO DAILY 01/10/18 04/21/19 Previous Rx's Medication Instructions Recorded nystatin-triamcinolone 100,000 1 applictn TOP BID PRN #15 gram 03/28/19 unit/g-0.1 % topical cream nitrofurantoin monohyd/m-cryst 100 mg PO BID #10 cap 06/28/19 [Macrobid] Allergies Allergy/AdvReac Type Severity Reaction Status Date / Time Influenza Virus Vaccines AdvReac Mild GOT REALLY Verified 06/28/19 20:55 [INFLUENZA VIRUS VACCINES] SICK levofloxacin [LEVOFLOXACIN] AdvReac Mild DIZZY/VOMIT Verified 06/28/19 20:55 ING Penicillins [PENICILLINS] AdvReac Mild DIZZY/VOMIT Verified 06/28/19 20:55 ING Review of Systems Review of Systems ROS Unobtainable: All systems reviewed & are unremarkable except as noted in HPI and below Patient History Medical History Healthy adult (Acute) Surgical History History of third molar tooth extraction History of tonsillectomy Social History Smoking Status: Never smoker alcohol intake: current Smoking Status: Never smoker alcohol intake frequency: holidays/special occasions only Substance Use Type: does not use Exam Narrative Exam Narrative: GENERAL: Alert and oriented x three, obese, well-appearing female in mild distress. HEENT: Head normocephalic, atraumatic, EOMI, pupils reactive, face symmetric, moist mucous membranes NECK: Supple, full range of motion CARDIOVASCULAR: Regular rate and rhythm without murmurs, rubs or gallops. No JVD. No swelling in lower extremities. RESPIRATORY: Breath sounds equal bilaterally, no wheezes rales or rhonchi. ABDOMEN: Soft, nontender. Normoactive bowel sounds all 4 quadrants. No gu arding or rebound, rigidity, no mass : No CVA tenderness EXTREMITIES: Normal range of motion, no clubbing or edema. Neurovascularly intact NEUROLOGICAL: Cranial nerves II through XII grossly intact. Moving all extremities SKIN: Warm, dry, no petechiae, no rashes or lesions. Initial Vital Signs Initial Vital Signs: Vital Signs Temperature 97.8 F 06/28/19 18:26 Pulse Rate 76 06/28/19 18:26 Respiratory Rate 20 06/28/19 18:26 Blood Pressure 173/76 H 06/28/19 18:26 Pulse Oximetry 100 06/28/19 18:26 Scores HEART Score Heart Score history: Slightly Suspicious Heart Score EKG: Normal Heart Score Age: < 45 years old Heart Score risk factors: No known risk factors PERC Score Age greater than or equal to 50 years: No Heart rate greater than or equal to 100 bpm: No Room Air O2 Sat less than 95%: No Unilateral leg swelling: No Recent trauma or surgery: No Hemoptysis: No Prior PE or DVT: No Hormone Use: No Total PERC Score: 0 Course Orders Ordered: Discontinued Medications Al Hydrox/Mg Hydrox/Simethicone 20 ml/ Lidocaine HCl 15 ml 0 ml PO NOW ONE Stop: 06/28/19 20:40 Last Admin: 06/28/19 20:57 Dose: 35 ml Documented by: CARLEY Sodium Chloride (Normal Saline 0.9%) 1,000 mls @ 1,000 mls/hr IV BOLUS ONE Stop: 06/28/19 19:40 Last Infusion: 06/28/19 21:42 Dose: 0 mls/hr Documented by: Admin: 06/28/19 19:49 Dose: 1,000 mls/hr Documented by: CARLEY Vital Signs Vital signs: Vital Signs - 8 hr 06/28/19 21:33 Pulse Rate 70 Respiratory Rate 16 Blood Pressure [Right Arm] 131/69 Pulse Oximetry 98 MDM - Arrhythmia/Palpitations Lab Data Attestation: I reviewed the patient's lab results. Result diagrams: 06/28/19 18:50 06/28/19 18:50 Labs: Lab Results 06/28/19 06/28/19 06/28/19 Range/Units 18:50 18:50 18:50 WBC 8.2 (4.5-11.0) X10^3/uL RBC 4.68 (4.0-5.2) X10^6/uL Hgb 12.4 (12.0-16.0) g/dL Hct 37.9 (36-46) % MCV 80.9 (80-100) fL MCH 26.5 (26-34) PG MCHC 32.8 (30-36) % RDW 14.5 (11.6-14.8) % Plt Count 358 (150-400) X10^3/uL Neut % (Auto) 69.6 (50-75) % Lymph % (Auto) 20.1 L (25-40) % Mcintosh % (Auto) 8.0 (3-14) % Eos % (Auto) 1.8 L (2-4) % Baso % (Auto) 0.5 (0-2) % Neut # (Auto) 5700 (5049-6496) /uL Lymph # (Auto) 1700 (2442-2091) /uL Mcintosh # (Auto) 700 (0-900) /uL Eos # (Auto) 200 (0-450) /uL Baso # (Auto) 0 (0-100) /uL PT 11.7 (10.1-12.7) SECONDS INR 1.0 (0.9-1.3) APTT 32 (26.4-36.2) SECONDS Sodium 139 (137-145) mmol/L Potassium 3.9 (3.4-5.1) mmol/L Chloride 104 (98-107) mmol/L Carbon Dioxide 24 (22-32) mmol/L BUN 10 (7-17) mg/dL Creatinine 0.57 (0.52-1.04) mg/dL Estimated GFR > 60.0 (>60) mL/min BUN/Creatinine Ratio 17.5 (6-22) Glucose 113 H (70-100) mg/dL Calcium 9.8 (8.4-10.2) mg/dL Magnesium 2.5 H (1.6-2.3) mg/dL Total Creatine Kinase 94 (30-135) U/L CK-MB (CK-2) TNP CK-MB (CK-2) Rel Index TNP Troponin I < 0.012 (0.01-0.034) ng/mL TSH (0.47-4.68) uIU/mL Urine RBC (0-5/HPF) Urine WBC (0-5/HPF) Ur Squamous Epith Cells (0-5/HPF) Urine Bacteria (None) Ur Culture Indicated? Micro UA Comment 06/28/19 06/28/19 Range/Units 18:50 18:50 WBC (4.5-11.0) X10^3/uL RBC (4.0-5.2) X10^6/uL Hgb (12.0-16.0) g/dL Hct (36-46) % MCV (80-100) fL MCH (26-34) PG MCHC (30-36) % RDW (11.6-14.8) % Plt Count (150-400) X10^3/uL Neut % (Auto) (50-75) % Lymph % (Auto) (25-40) % Mcintosh % (Auto) (3-14) % Eos % (Auto) (2-4) % Baso % (Auto) (0-2) % Neut # (Auto) (8713-3200) /uL Lymph # (Auto) (2803-5175) /uL Mcintosh # (Auto) (0-900) /uL Eos # (Auto) (0-450) /uL Baso # (Auto) (0-100) /uL PT (10.1-12.7) SECONDS INR (0.9-1.3) APTT (26.4-36.2) SECONDS Sodium (137-145) mmol/L Potassium (3.4-5.1) mmol/L Chloride (98-107) mmol/L Carbon Dioxide (22-32) mmol/L BUN (7-17) mg/dL Creatinine (0.52-1.04) mg/dL Estimated GFR (>60) mL/min BUN/Creatinine Ratio (6-22) Glucose (70-100) mg/dL Calcium (8.4-10.2) mg/dL Magnesium (1.6-2.3) mg/dL Total Creatine Kinase (30-135) U/L CK-MB (CK-2) CK-MB (CK-2) Rel Index Troponin I (0.01-0.034) ng/mL TSH 3.48 (0.47-4.68) uIU/mL Urine RBC 0-1/hpf (0-5/HPF) Urine WBC 1-5/hpf (0-5/HPF) Ur Squamous Epith Cells 1-5 /hpf (0-5/HPF) Urine Bacteria Occasional (0-1) (None) Ur Culture Indicated? Specimen cultured Micro UA Comment Angel esterase + Point of Care Testing Test Results Negative Urine Dip Bedside Urine Glucose Negative Bedside Urine Bilirubin - Negative Bedside Urine Ketone - Negative Urine Specific Alexander 1.01 Bedside Urine Occult Blood +/- Bedside Urine pH 8.0 Bedside Urine Protein - Negative Bedside Urine Urobilinogen - Negative Bedside Urine Nitrite - Negative Bedside Urine Leukocytes ++ 125 Esterase Imaging Data Chest x-ray: Radiologist's Impresson: [address] [address] XRay Report Signed Patient: Nadira Guerrier [facility]#: [id number] : 1980Acct:[id number] Age/Sex: 39 / FDate of Service: 06/28/19 Loc: ED Accession Number: [id number] Procedure: XR chest 1V Ordering Provider: Natasha Santana D.O. PROCEDURE: XR CHEST 1V INDICATIONS: palpitations TECHNIQUE: One view of the chest was acquired. COMPARISON: [facility], CR, XR CHEST 1V, 01/10/2018, 9:04. FINDINGS: Surgical changes and devices: None. Lungs and pleura: Lungs are clear. No pleural effusions or pneumothorax. Mediastinum: Mediastinal contours appear normal. Heart size is normal. Bones and chest wall: No suspicious bony lesions. Overlying soft tissues appear unremarkable. IMPRESSION: No acute cardiopulmonary pathology. Dictated by: Efe Lopez M.D. on 06/28/2019 at 19:11 Approved by: Efe Lopez M.D. on 06/28/2019 at 19:13 ECG Data Attestation: I personally reviewed and interpreted this ECG as follows: Prior ECG tracings: available for review Interpretation: Sinus rhythm incomplete right bundle-branch block. Rate of 69 WI 162 QRS of 92 and QRS of 394. No ST elevation or depression. Patient has prior from 01/10/2018 which appears similar. MDM Narrative Medical decision making narrative: Patient had a little bit recurrence of chest pain just before discharge. We tried a GI cocktail is worse when she lays flat. This improved her symptoms. She has had a couple PVCs but no cardiac arrhythmias. Discussed they can try a Holter monitor although some PVCs are normal. She has not had any signs today of excessive her inappropriate changes. Labs did show slightly elevated magnesium she does take a vitamin we discussed to check the dosage in if there was a large amount of magnesium to maybe back off. Increase her fluids. She has had frequency and urinary symptoms so did order an antibiotic for UTI. Patient I discussed return precautions. Patient feels much better at this time and plan for DC home. Discharge Plan Departure Patient Disposition: Home Clinical Impression: Palpitations UTI (urinary tract infection) Qualifiers: Urinary tract infection type: acute cystitis Discharge Date/Time: 06/28/19 21:52 Instructions: DI for Palpitations Activity Restrictions/Additional Instructions: Follow-up with your physician in the next week for recheck. If you continue to have sensation of palpitations they may wish to order a Holter monitor which can monitor your heart rhythms over an extended period of time at home. There have not been any acute changes in her heart rhythms today in the emergency department. Labs do show a your magnesium is elevated. Make sure you are drinking plenty of fluids. You may wish to try Tums or a PPI such as Pepcid or Nexium [id number] for your discomfort. Urine shows possible bladder infection, antibiotics have been prescribed and I would recommend taking the measure having some symptoms. Prescription was sent to [facility]. Return to the ER for fevers greater 100.4 F, passing out, new or worsening chest pain or shortness of breath, persistent vomiting, no abdominal pain, inability urinate, black or bloody stools, swelling in her extremities or other new or concerning symptoms. Prescriptions: New nitrofurantoin monohyd/m-cryst [Macrobid] 100 mg capsule 100 mg PO BID Qty: 10 RF: 0 No Action nystatin-triamcinolone 100,000-0.1 unit/g-% cream 1 applictn TOP BID PRN (Reason: Vulvar Irrittaion) Qty: 15 RF: 1 multivitamin Tablet 1 tab PO DAILY RF: 0 Referrals: Sylwia Portillo DO [Primary Care Provider] -
--- NOTE | 2019-06-28 18:41 | DI.RAD.S_ITS ---
PROCEDURE: XR CHEST 1V INDICATIONS: palpitations TECHNIQUE: One view of the chest was acquired. COMPARISON: [facility], CR, XR CHEST 1V, 01/10/2018, 9:04. FINDINGS: Surgical changes and devices: None. Lungs and pleura: Lungs are clear. No pleural effusions or pneumothorax. Mediastinum: Mediastinal contours appear normal. Heart size is normal. Bones and chest wall: No suspicious bony lesions. Overlying soft tissues appear unremarkable. IMPRESSION: No acute cardiopulmonary pathology. Dictated by: Efe Lopez M.D. on 06/28/2019 at 19:11 Approved by: Efe Lopez M.D. on 06/28/2019 at 19:13
[2019-06-28 19:02] LABS: Add Manual Diff / Slide Review NO; Basophils Absolute Auto 0 /uL (0-100); Basophils Percent Auto 0.5 % (0-2); Eosinophils Absolute Auto 200 /uL (0-450); Eosinophils Percent Auto 1.8 % (2-4); Hematocrit 37.9 % (36-46); Hemoglobin 12.4 g/dL (12.0-16.0); Lymphocytes Absolute Auto 1700 /uL (1100-4500); Lymphocytes Percent Auto 20.1 % (25-40); Mean Corpuscular HGB Conc 32.8 % (30-36); Mean Corpuscular Hemoglobin 26.5 PG (26-34); Mean Corpuscular Volume 80.9 fL (80-100); Monocytes Absolute Auto 700 /uL (0-900); Neutrophils Absolute Auto 5700 /uL (1500-7000); Neutrophils Percent Auto 69.6 % (50-75); Platelet Count 358 X10^3/uL (150-400); Red Blood Cell Count 4.68 X10^6/uL (4.0-5.2); Red Cell Distribution Width 14.5 % (11.6-14.8); White Blood Cell Count 8.2 X10^3/uL (4.5-11.0)
[2019-06-28 19:29] LABS: BUN Creatinine Ratio 17.5 (6-22); Blood Urea Nitrogen 10 mg/dL (7-17); Calcium 9.8 mg/dL (8.4-10.2); Carbon Dioxide 24 mmol/L (22-32); Chloride 104 mmol/L (98-107); Creatine Kinase 94 U/L (30-135); Estimated Glomerular Filt Rate > 60.0 mL/min (>60); Glucose 113 mg/dL (70-100); HEMOLYSIS < 15 (0-50); Magnesium 2.5 mg/dL (1.6-2.3); Potassium 3.9 mmol/L (3.4-5.1); Sodium 139 mmol/L (137-145)
[2019-06-28 19:31] LABS: Prothrombin Time 11.7 SECONDS (10.1-12.7)
[2019-06-28 19:34] LABS: PTT Partial Thromboplastin Tim 32 SECONDS (26.4-36.2)
[2019-06-28 19:39] LABS: Bacteria Urine Occasional (0-1); Culture Indicated Urine Specimen Cultured; RBC Urine 0-1/HPF (0-5/HPF); Squamous Epithelial Cell Urine 1-5 /HPF (0-5/HPF); Urine Comments LEU ESTERASE +; WBC Urine 1-5/HPF (0-5/HPF)
[2019-06-28 19:41] LABS: Troponin I < 0.012 ng/mL (0.01-0.034)
[2019-06-28 19:43] VITALS: BP 131/68; PULSE 68; RESP 23; O2SAT 99
[2019-06-28] MEDS: SODIUM CHLORIDE 0.9% 1,000 ML 1000 ML IV (19:49)
[2019-06-28 19:59] LABS: Thyroid Stimulating Hormone 3.48 uIU/mL (0.47-4.68)
[2019-06-28 20:30] VITALS: BP 119/61; PULSE 71; RESP 17; O2SAT 99
[2019-06-28] MEDS: MAG HYDROX/ALUMINUM/SIMETH SUS 20 ML, LIDOCAINE VISCOUS 2% 15 ML PO (20:57)
[2019-06-28 21:33] VITALS: BP 131/69; PULSE 70; RESP 16; O2SAT 98
--- NOTE | 2019-06-28 21:33 | PC.NURSE ---
Patient complains fo some chest/epigastric pain that is worse when she lies flat. Dr. Esther kennedy.
--- NOTE | 2019-06-28 21:34 | PC.NURSE ---
Pain is relieved after GI cocktail. Patient reports decrease in anxiety.
== END 2019-06-28 21:52 | disposition home or self-care (01) ==
PROVIDERS: Emergency Provider Emergency Medicine; PCP Family Medicine
DX: R00.2 Palpitations (principal); N39.0 Urinary tract infection, site not specified
CPT/HCPCS: 36415; 71045; 80048; 81003; 81015; 81025; 82550; 83735; 84443; 84484; 85025; 85610; 85730; 87086; 93005; 93010; 96360; 96361; 99284

== ENCOUNTER 2020-02-08 01:59 | Emergency (ER) | payer OTHER, SELFPAY ==
[2020-02-08 01:59] VITALS: BP 137/100; PULSE 77; RESP 16; O2SAT 99; BMI 39.0
--- NOTE | 2020-02-08 02:14 | DI.CT.S_ITS ---
PROCEDURE: CT HEAD/BRAIN WO CON INDICATIONS: severe headache, vomiting, blurred vision TECHNIQUE: Noncontrast 4.5 mm thick angled axial sections acquired from the foramen magnum to the vertex, with coronal and sagittal reformats. For radiation dose reduction, the following was used: automated exposure control, adjustment of mA and/or kV according to patient size. COMPARISON: None. FINDINGS: Image quality: Excellent. CSF spaces: Basal cisterns are patent. No extra-axial fluid collections. Ventricles are normal in size and shape. Brain: No midline shift. No intracranial masses or hemorrhage. Ornelas-white matter interface is normal. Incidental note of pineal gland calcifications. Skull and face: Calvarium and visualized facial bones are intact, without suspicious lesions. Sinuses: Visualized sinuses and mastoids are clear. IMPRESSION: CT head without acute intracranial abnormalities. No mass or mass effect visualized. No significant discrepancy with the mine shifter radiology preliminary report. Dictated by: Eric Desai M.D. on 02/08/2020 at 7:07 Approved by: Eric Desai M.D. on 02/08/2020 at 13:48
[2020-02-08] MEDS: METOCLOPRAMIDE 10 MG/2 ML INJ IV (02:22)
[2020-02-08] MEDS: PANTOPRAZOLE 40 MG VIAL IV (02:22)
[2020-02-08] MEDS: SODIUM CHLORIDE 0.9% 1,000 ML 1000 ML IV (02:22)
[2020-02-08 02:28] LABS: Add Manual Diff / Slide Review NO; Basophils Absolute Auto 100 /uL (0-100); Basophils Percent Auto 0.6 % (0-2); Eosinophils Absolute Auto 200 /uL (0-450); Eosinophils Percent Auto 2.5 % (2-4); Hematocrit 38.2 % (36-46); Hemoglobin 12.5 g/dL (12.0-16.0); Lymphocytes Absolute Auto 2900 /uL (1100-4500); Lymphocytes Percent Auto 34.4 % (25-40); Mean Corpuscular HGB Conc 32.6 % (30-36); Mean Corpuscular Hemoglobin 26.3 PG (26-34); Mean Corpuscular Volume 80.6 fL (80-100); Monocytes Absolute Auto 600 /uL (0-900); Monocytes Percent Auto 7.5 % (3-14); Neutrophils Absolute Auto 4700 /uL (1500-7000); Platelet Count 362 X10^3/uL (150-400); Red Blood Cell Count 4.74 X10^6/uL (4.0-5.2); Red Cell Distribution Width 15.8 % (11.6-14.8); White Blood Cell Count 8.5 X10^3/uL (4.5-11.0)
[2020-02-08 02:35] LABS: Creatine Kinase 110 U/L (30-135); Magnesium 2.2 mg/dL (1.6-2.3)
[2020-02-08 02:36] LABS: Alanine Aminotransferase 64 IU/L (<35); Albumin 4.8 g/dL (3.5-5.0); Albumin Globulin Ratio 1.3 (1.0-2.8); Alkaline Phosphatase 104 U/L (38-126); Aspartate Aminotransferase 38 IU/L (14-36); BUN Creatinine Ratio 17.9 (6-22); Bilirubin Total 0.4 mg/dL (0.2-1.3); Blood Urea Nitrogen 12 mg/dL (7-17); Calcium 9.6 mg/dL (8.4-10.2); Carbon Dioxide 28 mmol/L (22-32); Chloride 103 mmol/L (98-107); Estimated Glomerular Filt Rate > 60.0 mL/min (>60); Globulin 3.7 g/dL (1.7-4.1); Glucose 129 mg/dL (70-100); HEMOLYSIS < 15 (0-50); Lipase 117 U/L (23-300); Potassium 3.5 mmol/L (3.4-5.1); Sodium 138 mmol/L (137-145); Total Protein 8.5 g/dL (6.3-8.2)
--- NOTE | 2020-02-08 02:36 | ED_ITS ---
HPI - Dizziness General Chief Complaint: Dizziness Stated Complaint: DIZZY BLURRY VISION NAUSEA VOMITING Time Seen by Provider: 02/08/20 02:00 Source: patient Mode of arrival: Ambulatory Limitations: no limitations History of Present Illness HPI Narrative: 39-year-old female nonsmoker with history of gastric ulcer and palpitations presents with younger family member with evaluation of multiple complaints over the past week. She states that for about 1 week she has had some suprapubic discomfort and discomfort with urination. Over the weeks she has had what seems like increasing episodes of some burning and discomfort in her epigastrium with nausea and decreased appetite. She has had a few episodes of some dizziness but nothing too significant until this evening. She states that she was changing position and became profoundly dizzy, developed a bit of a headache and vomited. She states that after 2-3 episodes of vomiting her headache had completely resolved as did her abdominal pain but she does have a small amount of residual dizziness. She denies focal neurologic findings such is difficulty with speech, facial weakness or extremity numbness weakness or tingling. She does state that she has had some episodes of fuzzy vision. She denies any change in medications or diet. She denies any chest pain, palpitations or shortness of breath. MD complaint: dizziness and lightheadedness Onset (ago): day(s) Timing: gradual onset Description: sense of movement and off-balance History of similar episodes: No History of trauma: No Severity: moderate Relieving factors: remaining still Exacerbating factors: movement Associated symptoms: nausea and vomiting Related Data Previous Rx's Medication Instructions Recorded meclizine 25 mg PO BID-TID PRN #14 tab 02/08/20 ondansetron 4 mg PO TID-QID PRN #10 tab 02/08/20 Allergies Allergy/AdvReac Type Severity Reaction Status Date / Time Influenza Virus Vaccines AdvReac Mild GOT REALLY Verified 01/25/20 13:33 [INFLUENZA VIRUS VACCINES] SICK levofloxacin [LEVOFLOXACIN] AdvReac Mild DIZZY/VOMIT Verified 01/25/20 13:33 ING Penicillins [PENICILLINS] AdvReac Mild DIZZY/VOMIT Verified 02/08/20 02:19 ING Review of Systems Constitutional Constitutional: Denies chills, Denies fatigue, Denies fever(s), Denies frequent falls, Reports headache(s), Denies lethargy, Reports poor appetite and Denies weakness Eyes Eyes: Denies change in vision, Denies eye discharge, Denies irritation and Denies loss of vision ENT Ears, Nose, Mouth, and Throat: Denies change in voice, Reports dizziness, Reports headache(s), Denies neck pain, Denies sore throat and Denies throat swelling Cardiovascular Cardiovascular: Denies chest pain, Denies irregular heart rhythm, Denies lightheadedness, Denies palpitations, Denies dyspnea, Denies dyspnea on exertion and Denies orthopnea Respiratory Respiratory: Denies cough, Denies dyspnea, Denies dyspnea on exertion and Denies wheezing Gastrointestinal Gastrointestinal: Reports abdominal pain, Denies change in bowel habits, Denies diarrhea, Reports nausea and Reports vomiting Genitourinary Genitourinary: Reports dysuria and Reports urinary urgency Genitourinary: Reports dysuria and Reports urinary urgency Musculoskeletal Musculoskeletal: Denies neck pain and Denies numbness Integumentary/Breasts Skin/Breast: Denies pruritus, Denies erythema, Denies rash and Denies wounds Neurologic Neurologic: Denies behavioral changes, Denies confusion, Reports dizziness, Denies frequent falls, Reports headache(s), Denies loss of vision, Denies numbness and Denies weakness Psychiatric Psychiatric: Denies anxiety, Denies behavioral changes, Denies confusion, Denies depression, Denies homicidal ideation and Denies suicidal ideation Endocrine Endocrine: Denies fatigue, Denies flushing and Denies palpitations Hematologic/Lymphatic Hematologic/Lymphatic: Denies easy bruising Allergic/Immunologic Allergic/Immunologic: Denies urticaria, Denies throat swelling and Denies wheezing Patient History Medical History Healthy adult (Acute) Menorrhagia (Acute) Weight loss counseling, encounter for (Acute) Surgical History History of third molar tooth extraction History of tonsillectomy Family History Mother No problems noted. Father No problems noted. Social History Smoking Status: Never smoker alcohol intake: current Smoking Status: Never smoker alcohol intake frequency: holidays/special occasions only Substance Use Type: does not use Exam Narrative Exam Narrative: GENERAL: [39] year old patient appears stated age. Well- nourished, well-developed patient, in mild distress. Holding an emesis bag HEAD: Atraumatic. Normocephalic. EYES: Pupils equal round and reactive. Extraocular motions intact. No scleral icterus. No injection or drainage. ENT: Nose without bleeding, purulent drainage. Throat without erythema, tonsillar hypertrophy or exudate. Airway patent. NECK: Trachea midline. Non tender CARDIOVASCULAR: Regular rate and rhythm without murmurs, gallops, or rubs. RESPIRATORY: Clear to auscultation. Breath sounds equal bilaterally. No wheezes, rales, or rhonchi. GASTROINTESTINAL: Abdomen soft, non-tender, nondistended. EXTREMITIES: No edema or joint tenderness. BACK: Nontender without deformity or crepitance. No flank tenderness. NEURO: AOx3. SKIN: No rash or erythema of visible areas NIH Stroke Scale 1a. LOC: Patient is alert and keenly responsive (0) 1b. LOC Questions: Patient answers both LOC questions accurately (0) 1c. LOC Commands: Patient performs both tasks correctly (0) 2. Best Gaze: Normal (0) 3. Visual: No visual loss (0) 4. Facial palsy: Normal symmetrical movements (0) 5. Motor arm: No drift (0) 6. Motor leg: No drift (0) 7. Limb ataxia: Absent (0) 8. Sensory: Normal (0) 9. Best language: No aphasia; normal (0) 10. Dysarthria: Normal (0) 11. Extinction and inattention: No abnormality (0) NIHSS: 0 Initial Vital Signs Initial Vital Signs: Vital Signs Pulse Rate 77 02/08/20 01:59 Respiratory Rate 16 02/08/20 01:59 Blood Pressure 137/100 H 02/08/20 01:59 Pulse Oximetry 99 02/08/20 01:59 Course Orders Ordered: ED Orders 02/08/20 02:13 Complete Blood Count AUTO DIFF Stat Comprehensive Metabolic Panel Stat Lipase Stat Magnesium Stat Troponin & CK Cardiac Panel Stat 02/08/20 02:14 CT head/brain wo con Stat EKG-12 Lead Stat Discontinued Medications Sodium Chloride (Normal Saline 0.9%) 1,000 mls @ 1,000 mls/hr IV BOLUS ONE Stop: 02/08/20 03:12 Last Infusion: 02/08/20 03:29 Dose: 0 mls/hr Documented by: Admin: 02/08/20 02:22 Dose: 1,000 mls/hr Documented by: RENAE Meclizine HCl (Antivert) 50 mg PO NOW ONE Stop: 02/08/20 03:30 Last Admin: 02/08/20 03:40 Dose: 50 mg Documented by: RENAE Metoclopramide HCl (Reglan) 10 mg IV NOW ONE Stop: 02/08/20 02:14 Last Admin: 02/08/20 02:22 Dose: 10 mg Documented by: RENAE Ondansetron HCl (Zofran) 4 mg IV NOW ONE Stop: 02/08/20 03:01 Last Admin: 02/08/20 03:06 Dose: 4 mg Documented by: RENAE Ondansetron HCl (Zofran Odt Prepack) 1 bottle MISC SEEINSTR ONE Stop: 02/08/20 04:26 Last Admin: 02/08/20 04:29 Dose: 1 bottle Documented by: RENAE Pantoprazole Sodium (Protonix) 40 mg IV NOW ONE Stop: 02/08/20 02:14 Last Admin: 02/08/20 02:22 Dose: 40 mg Documented by: RENAE Reevaluation(s) Reevaluation #1: called to see patient, actively vomiting, meds ordered Time: 02:27 Reevaluation #2: patient feeling resolution of symptoms. No dizziness, no vomiting. Ambulation without trouble. Vital Signs Vital signs: Vital Signs - 8 hr 02/08/20 01:59 02/08/20 03:06 Pulse Rate 77 61 Respiratory Rate 16 16 Blood Pressure 137/100 H 132/60 Pulse Oximetry 99 99 MDM - Dizziness Lab Data Result diagrams: 02/08/20 02:13 02/08/20 02:13 Labs: Lab Results 02/08/20 02/08/20 02/08/20 Range/Units 02:13 02:13 02:13 WBC 8.5 (4.5-11.0) X10^3/uL RBC 4.74 (4.0-5.2) X10^6/uL Hgb 12.5 (12.0-16.0) g/dL Hct 38.2 (36-46) % MCV 80.6 (80-100) fL MCH 26.3 (26-34) PG MCHC 32.6 (30-36) % RDW 15.8 H (11.6-14.8) % Plt Count 362 (150-400) X10^3/uL Neut % (Auto) 55.0 (50-75) % Lymph % (Auto) 34.4 (25-40) % [place] % (Auto) 7.5 (3-14) % Eos % (Auto) 2.5 (2-4) % Baso % (Auto) 0.6 (0-2) % Neut # (Auto) 4700 (1248-1217) /uL Lymph # (Auto) 2900 (5137-4795) /uL [place] # (Auto) 600 (0-900) /uL Eos # (Auto) 200 (0-450) /uL Baso # (Auto) 100 (0-100) /uL Sodium 138 (137-145) mmol/L Potassium 3.5 (3.4-5.1) mmol/L Chloride 103 (98-107) mmol/L Carbon Dioxide 28 (22-32) mmol/L BUN 12 (7-17) mg/dL Creatinine 0.67 (0.52-1.04) mg/dL Estimated GFR > 60.0 (>60) mL/min BUN/Creatinine Ratio 17.9 (6-22) Glucose 129 H (70-100) mg/dL Calcium 9.6 (8.4-10.2) mg/dL Magnesium 2.2 (1.6-2.3) mg/dL Total Bilirubin 0.4 (0.2-1.3) mg/dL AST 38 H (14-36) IU/L ALT 64 H (<35) IU/L Alkaline Phosphatase 104 (38-126) U/L Total Creatine Kinase 110 (30-135) U/L CK-MB (CK-2) 0.54 (<2.37) ng/mL CK-MB (CK-2) Rel Index 0.5 L (1.5-5.0) % Troponin I < 0.012 (0.01-0.034) ng/mL Total Protein 8.5 H (6.3-8.2) g/dL Albumin 4.8 (3.5-5.0) g/dL Globulin 3.7 (1.7-4.1) g/dL Albumin/Globulin Ratio 1.3 (1.0-2.8) Lipase 117 (23-300) U/L Point of Care Testing Test Results Negative Urine Dip Bedside Urine Glucose Negative Bedside Urine Bilirubin - Negative Bedside Urine Ketone - Negative Urine Specific [place] 1.025 Bedside Urine Occult Blood - Negative Bedside Urine pH 6.0 Bedside Urine Protein - Negative Bedside Urine Urobilinogen - Negative Bedside Urine Nitrite - Negative Bedside Urine Leukocytes - Negative Esterase ECG Data Attestation: I personally reviewed and interpreted this ECG as follows: Interpretation: EKG is normal sinus rhythm rate [71] and free of any signs of ischemia or ectopy. No ST segmental elevation or depression. No T wave inversions. MN interval 180, QRS 94, QT 426 MDM Narrative Medical decision making narrative: Multiple etiologies for patient's symptoms considered including: [Peripheral vertigo versus intracranial hemorrhage versus upper respiratory infection versus other] Patient's symptoms improved over duration of stay with above-stated therapies. Findings and discharge diagnosis discussed with patient/family followed by verbalization of understanding Return precautions discussed with patient/family whom verbalize understanding. Discharge Plan Departure Patient Disposition: Home Clinical Impression: Vertigo Vomiting Qualifiers: Vomiting type: unspecified Vomiting Intractability: non-intractable Nausea presence: with nausea Qualified Code(s): R11.2 - Nausea with vomiting, unspecified Discharge Date/Time: 02/08/20 04:34 Instructions: DI for Vertigo, DI for Vomiting -- Adult Activity Restrictions/Additional Instructions: *You have been diagnosed with [vertigo and vomiting. Your physical exam, lab work, CT scan, and response to medications is very reassuring] *What to do: *Take medications as directed: Prescriptions sent to [facility] *Follow up with your primary care provider in 2-3 days, call for an appointment. Let them know you were seen in the Emergency Department and that we ask that you be seen in follow up *Return to ER if you should have any new, worsening or concerning symptoms 1. Drink plenty of fluids with frequent small sips. 2. For the next 24 hours a clear liquid diet is advised. After that please employ a B.R.A.T. diet which would include bananas, rice, apples, toast and other mild food items 3. Please take medications as directed. Prescriptions: New meclizine 25 mg tablet 25 mg PO BID-TID PRN (Reason: dizziness) Qty: 14 RF: 0 ondansetron 4 mg tablet,disintegrating 4 mg PO TID-QID PRN (Reason: nausea and vomiting) Qty: 10 RF: 0 Referrals: Az Low DO [Primary Care Provider] -
[2020-02-08 02:48] LABS: Troponin I < 0.012 ng/mL (0.01-0.034)
[2020-02-08 02:50] LABS: CKMB % Relative Index 0.5 % (1.5-5.0); Creatine Kinase MB 0.54 ng/mL (<2.37)
[2020-02-08 03:06] VITALS: BP 132/60; PULSE 61; RESP 16; O2SAT 99
[2020-02-08] MEDS: ONDANSETRON 4 MG/2 ML INJ IV (03:06)
[2020-02-08] MEDS: MECLIZINE HCL 12.5 MG TABLET 50 MG PO (03:40)
[2020-02-08] MEDS: ONDANSETRON 4 MG ODT PREPACK 1 BOTTLE MISC (04:29)
[2020-02-08 04:30] VITALS: BP 126/71; PULSE 58; RESP 16; O2SAT 99
== END 2020-02-08 04:34 | disposition home or self-care (01) ==
PROVIDERS: Emergency Provider Emergency Medicine; PCP Family Medicine
DX: R42 Dizziness and giddiness (principal); R11.2 Nausea with vomiting, unspecified; R07.9 Chest pain, unspecified; R30.0 Dysuria; R51.9 Headache, unspecified; R10.9 Unspecified abdominal pain
CPT/HCPCS: 36415; 70450; 80053; 81003; 81025; 82550; 82553; 83690; 83735; 84484; 85025; 93005; 93010; 96361; 96374; 96375; 99284; C9113; J2405; J2765

== ENCOUNTER 2020-04-11 14:06 | Emergency (ER) | payer OTHER, SELFPAY ==
[2020-04-11 14:08] VITALS: BP 159/80; PULSE 87; RESP 15; TEMP 36.9; O2SAT 99; BMI 39.0
--- NOTE | 2020-04-11 14:43 | ED_ITS ---
HPI - URI/Sore Throat <KAY Pual - Last Filed: 04/11/20 15:59> General Chief Complaint: Upper Respiratory Symptoms Stated Complaint: trouble breathing, Covid postive Time Seen by Provider: 04/11/20 14:11 Source: patient Mode of arrival: Ambulatory Limitations: no limitations History of Present Illness HPI Narrative: This is a 39 year female, nonsmoker, who had tested positive for COVID swab 1 week ago and had started COVID related symptoms 10 days ago presents to ED with chief complain of hard time catching breath, feeling restlessness, crackles, not feeling myself for last 2 days, bilateral chest discomfort for a day, headache, nonproductive phlegmy cough, nasal congestion, loss of taste and smell, bilateral knee pain, chills. Patient states appetite has been okay and has been trying to hydrate well with pushing fluids. 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 Patient denies fever, near syncope. Patient tried prone position at home but she was not able to tolerate since last night and has been resting sitting up position for comfort. Patient reports her son has test positive to Covid 2 days ago. She has been isolating herself in the house from other family members. Related Data Previous Rx's Medication Instructions Recorded meclizine 25 mg PO BID-TID PRN #14 tab 02/08/20 ondansetron 4 mg PO TID-QID PRN #10 tab 02/08/20 Allergies Allergy/AdvReac Type Severity Reaction Status Date / Time Influenza Virus Vaccines AdvReac Mild GOT REALLY Verified 04/11/20 14:14 [INFLUENZA VIRUS VACCINES] SICK levofloxacin [LEVOFLOXACIN] AdvReac Mild DIZZY/VOMIT Verified 04/11/20 14:14 ING Penicillins [PENICILLINS] AdvReac Mild DIZZY/VOMIT Verified 04/11/20 14:14 ING Review of Systems <KAY Paul - Last Filed: 04/11/20 15:59> Review of Systems Narrative: General: See HPI HEENT: Denies sinus pain, (+) sinus congestion, ear pain, sore throat, difficulty swallowing, dizziness, (+) left submandibular lymph node pain. Respiratory: See HPI Cardiovascular: Denies (+) bilateral chest pain, palpitations, (+) orthopnea, edema. Gastrointestinal: Denies nausea, vomiting, abdominal pain, diarrhea, constipation, melena. : Denies dysuria, frequency, incontinence, hematuria, urinary retention. Musculoskeletal: See HPI Skin: Denies rash, skin lesions, or other. Neurologic: Denies weakness, headache, numbness, change in speech, confusion, seizures, incoordination. Psychiatric: No concerning psychosocial issues. 12-point review of systems is negative except for those stated above. Patient History <KAY Paul - Last Filed: 04/11/20 15:59> Medical History (Updated 04/11/20 @ 15:51 by KAY Paul) Healthy adult Menorrhagia Weight loss counseling, encounter for Surgical History History of third molar tooth extraction History of tonsillectomy Family History Mother No problems noted. Father No problems noted. Social History Smoking Status: Never smoker alcohol intake: current Smoking Status: Never smoker alcohol intake frequency: holidays/special occasions only Substance Use Type: does not use Exam <KAY Paul - Last Filed: 04/11/20 15:59> Narrative Exam Narrative: GEN: Alert, oriented x 3, well nourished, and in no acute distr ess. Head: Normal cephalic, atraumatic. No scalp or temporal tenderness, palpable mass or rash. EYES: Pupils are equal, round, and reactive to light and accommodation. Extraocular muscles are intact bilaterally. There is no subconjunctival hemorrhage, exudate and sclera non-icteric. ENT: Bilateral auditory canals semi occluded with cerumen. Hearing grossly intact. Nose without bleeding, purulent discharge or deviation. Facial sinuses nontender to palpate. Mucous membrane moist, no mucosal lesion. Throat without erythema, tonsillar hypertrophy or exudate. Uvula in midline, airway patent. Neck: Trachea in midline. No JVD, non-tender without lymphadenopathy. No masses or thyroid megaly. Supple, left submandibular lymphadenopathy. No meningeal signs. CARDIAC: Normal regular rate and rhythm without murmurs, gallops, or rubs. No chest wall tenderness. No peripheral edema, cyanosis or pallor. Capillary refill is less than 2 seconds. RESPIRATORY: Lungs decreased to auscultate bilaterally. Faint crackles bilateral lower lobes. No cough, wheezes, rales, or rhonchi. No stridor, increase work of breathing, or accessary muscle used but with slight tachypnea,. O2 said from 98-99% in room air ABD: Abdomen soft, nontender and non-distended. No guarding or rebound te nderness to palpate. Bowel sounds are normal in all 4 quadrants. There is no palpable masses or organomegaly. EXT: Bilateral lower extremity discomfort without swelling. No upper extremity pain with range of motion. With no loss of sensation, strength, effusion or edema. SKIN: Warm, dry, normal color for patient. No erythema, lesions or rash over visible areas. BACK: Nontender without deformity or crepitance. No flank tenderness. NEUROLOGICAL: Alert and oriented to place, time and person. Sensation and motor function intact bilaterally. No facial droops, dysphasia. PSYCHIATRIC: Good judgement and reason, without hallucinations, abnormal affect or abnormal behaviors during the examination. Patient is not suicidal. Initial Vital Signs Initial Vital Signs: Vital Signs Temperature 98.5 F 04/11/20 14:08 Pulse Rate 87 04/11/20 14:08 Respiratory Rate 15 04/11/20 14:08 Blood Pressure 159/80 H 04/11/20 14:08 Pulse Oximetry 99 04/11/20 14:08 <Natasha Santana DO - Last Filed: 04/11/20 18:58> Initial Vital Signs Initial Vital Signs: Vital Signs Temperature 98.5 F 04/11/20 14:08 Pulse Rate 87 04/11/20 14:08 Respiratory Rate 15 04/11/20 14:08 Blood Pressure 159/80 H 04/11/20 14:08 Pulse Oximetry 99 04/11/20 14:08 Scores <KAY Paul - Last Filed: 04/11/20 15:59> GCS Sherrill coma scale eye opening: Spontaneous Jesus coma scale verbal response: Orientated Jesus coma scale motor response: Obey commands Jesus coma scale total score: 15 qSOFA Altered Mental Status (GCS <15): No Respiratory rate greater than/equal to 22: Yes Systolic blood pressure less than or equal to 100: No qSOFA Total: 1 0-1 Not High Risk 1-3 High risk Citation:: Chance Vanegasanderson 19 severity index score 1 (LOW) Course <Yuri SlaterKAY Lawrence - Last Filed: 04/11/20 15:59> Orders Ordered: ED Orders 04/11/20 14:42 XR chest 1V Stat 04/11/20 14:45 C-Reactive Protein Quant Stat Complete Blood Count AUTO DIFF Stat Comprehensive Metabolic Panel Stat D Dimer Stat Ferritin Stat Lactate (Lactic Acid) Stat Lactate Dehydrogenase Stat NT-proBNP (BNP-Adult 18+) Stat Procalcitonin Stat Troponin & CK Cardiac Panel Stat 04/11/20 15:00 Blood Culture Stat 04/11/20 15:06 EKG-12 Lead Stat Discontinued Medications Albuterol (Albuterol Hfa Prepack) 1 box MISC SEEINSTR ONE Stop: 04/11/20 15:48 Last Admin: 04/11/20 15:59 Dose: 1 box Documented by: MADIE Albuterol/Ipratropium (Albuterol/Ipratropium Mdi) 2 puff INH NOW ONE Stop: 04/11/20 14:42 Last Admin: 04/11/20 15:04 Dose: 2 puff Documented by: STEFANO Reevaluation(s) Reevaluation #1: Patient reports breathing easier after Combivent inhaler treatment and states feels like breathing is easier. Time: 15:45 Vital Signs Vital signs: Vital Signs - 8 hr 04/11/20 14:08 04/11/20 15:06 04/11/20 16:13 Temperature 98.5 F Pulse Rate 87 74 74 Respiratory Rate 15 16 14 Blood Pressure 159/80 H 131/74 Pulse Oximetry 99 96 97 <Natasha Santana DO - Last Filed: 04/11/20 18:58> Orders Ordered: ED Orders 04/11/20 14:42 XR chest 1V Stat 04/11/20 14:45 C-Reactive Protein Quant Stat Complete Blood Count AUTO DIFF Stat Comprehensive Metabolic Panel Stat D Dimer Stat Ferritin Stat Lactate (Lactic Acid) Stat Lactate Dehydrogenase Stat NT-proBNP (BNP-Adult 18+) Stat Procalcitonin Stat Troponin & CK Cardiac Panel Stat 04/11/20 15:00 Blood Culture Stat 12/24/20 15:06 EKG-12 Lead Stat Discontinued Medications Albuterol (Albuterol Hfa Prepack) 1 box MISC SEEINSTR ONE Stop: 04/11/20 15:48 Last Admin: 04/11/20 15:59 Dose: 1 box Documented by: MADIE Albuterol/Ipratropium (Albuterol/Ipratropium Mdi) 2 puff INH NOW ONE Stop: 04/11/20 14:42 Last Admin: 04/11/20 15:04 Dose: 2 puff Documented by: STEFANO Vital Signs Vital signs: Vital Signs - 8 hr 04/11/20 14:08 04/11/20 15:06 04/11/20 16:13 Temperature 98.5 F Pulse Rate 87 74 74 Respiratory Rate 15 16 14 Blood Pressure 159/80 H 131/74 Pulse Oximetry 99 96 97 MDM - URI/Sore Throat <Yuri KAY Calix - Last Filed: 04/11/20 15:59> Differential Diagnosis Differential diagnosis: Likely upper respiratory infection, viral infection and other (sepsis from Covid 19, viral pneumonia, ACS, PE) Medical Records Attestation: I reviewed the patient's medical records. Lab Data Result diagrams: 04/11/20 14:45 04/11/20 14:45 Labs: Lab Results 04/11/20 04/11/20 04/11/20 Range/Units 14:45 14:45 14:45 WBC 4.7 (4.5-11.0) X10^3/uL RBC 4.69 (4.0-5.2) X10^6/uL Hgb 12.3 (12.0-16.0) g/dL Hct 37.7 (36-46) % MCV 80.3 (80-100) fL MCH 26.2 (26-34) PG MCHC 32.7 (30-36) % RDW 14.7 (11.6-14.8) % Plt Count 287 (150-400) X10^3/uL Neut % (Auto) 61.9 (50-75) % Lymph % (Auto) 27.2 (25-40) % [place] % (Auto) 8.6 (3-14) % Eos % (Auto) 2.1 (2-4) % Baso % (Auto) 0.2 (0-2) % Neut # (Auto) 2900 (4584-5629) /uL Lymph # (Auto) 1300 (6872-0196) /uL [place] # (Auto) 400 (0-900) /uL Eos # (Auto) 100 (0-450) /uL Baso # (Auto) 0 (0-100) /uL D-Dimer 300 H (<230) ng/mL Sodium (137-145) mmol/L Potassium (3.4-5.1) mmol/L Chloride (98-107) mmol/L Carbon Dioxide (22-32) mmol/L BUN (7-17) mg/dL Creatinine (0.52-1.04) mg/dL Estimated GFR (>60) mL/min BUN/Creatinine Ratio (6-22) Glucose (70-100) mg/dL Lactate (0.7-2.1) mmol/L Calcium (8.4-10.2) mg/dL Ferritin (6-137) ng/mL Total Bilirubin (0.2-1.3) mg/dL AST (14-36) IU/L ALT (<35) IU/L Alkaline Phosphatase (38-126) U/L Lactate Dehydrogenase (313-618) U/L Total Creatine Kinase (30-135) U/L CK-MB (CK-2) CK-MB (CK-2) Rel Index Troponin I (0.01-0.034) ng/mL C-Reactive Protein (<1.0) mg/dL NT-Pro-B Natriuret Pep (<125) pg/mL Total Protein (6.3-8.2) g/dL Albumin (3.5-5.0) g/dL Globulin (1.7-4.1) g/dL Albumin/Globulin Ratio (1.0-2.8) Procalcitonin < 0.05 (<0.5) ng/mL 04/11/20 04/11/20 Range/Units 14:45 14:45 WBC (4.5-11.0) X10^3/uL RBC (4.0-5.2) X10^6/uL Hgb (12.0-16.0) g/dL Hct (36-46) % MCV (80-100) fL MCH (26-34) PG MCHC (30-36) % RDW (11.6-14.8) % Plt Count (150-400) X10^3/uL Neut % (Auto) (50-75) % Lymph % (Auto) (25-40) % [place] % (Auto) (3-14) % Eos % (Auto) (2-4) % Baso % (Auto) (0-2) % Neut # (Auto) (2531-3607) /uL Lymph # (Auto) (9081-6221) /uL [place] # (Auto) (0-900) /uL Eos # (Auto) (0-450) /uL Baso # (Auto) (0-100) /uL D-Dimer (<230) ng/mL Sodium 138 (137-145) mmol/L Potassium 3.7 (3.4-5.1) mmol/L Chloride 106 (98-107) mmol/L Carbon Dioxide 27 (22-32) mmol/L BUN 11 (7-17) mg/dL Creatinine 0.51 L (0.52-1.04) mg/dL Estimated GFR > 60.0 (>60) mL/min BUN/Creatinine Ratio 21.6 (6-22) Glucose 118 H (70-100) mg/dL Lactate 1.2 (0.7-2.1) mmol/L Calcium 9.3 (8.4-10.2) mg/dL Ferritin 11 (6-137) ng/mL Total Bilirubin 0.1 L (0.2-1.3) mg/dL AST 47 H (14-36) IU/L ALT 64 H (<35) IU/L Alkaline Phosphatase 82 (38-126) U/L Lactate Dehydrogenase 455 (313-618) U/L Total Creatine Kinase 54 (30-135) U/L CK-MB (CK-2) TNP CK-MB (CK-2) Rel Index TNP Troponin I < 0.012 (0.01-0.034) ng/mL C-Reactive Protein 0.7 (<1.0) mg/dL NT-Pro-B Natriuret Pep 28 (<125) pg/mL Total Protein 7.8 (6.3-8.2) g/dL Albumin 4.4 (3.5-5.0) g/dL Globulin 3.4 (1.7-4.1) g/dL Albumin/Globulin Ratio 1.3 (1.0-2.8) Procalcitonin (<0.5) ng/mL Imaging Data Chest x-ray: Radiologist's Impression: [address] [id number] ReportSigned Patient: Nadira Guerrier MMR#: [id number]: 1980Acct:[id number]/Sex: 39 / FDate of Service: 04/11/20Loc: EDAccession Number: [id number] Procedure: XR chest 1V Ordering Provider: Yuri Calix MANAGER HOME /PROCEDURE: XR CHEST 1V INDICATIONS: flu-like symptoms TECHNIQUE: One view of the chest was acquired. COMPARISON: [facility], CR, CHEST 2 VIEW, 02/06/2014, 7:35. [facility], CR, XR CHEST 1V, 01/10/2018, 9:04. [facility], CR, XR CHEST 1V, 06/28/2019, 18:52. FINDINGS: Surgical changes and devices: None. Lungs and pleura: Lungs are clear. No pleural effusions or pneumothorax. Mediastinum: Mediastinal contours appear normal. Heart size is normal. Bones and chest wall: No suspicious bony lesions. Overlying soft tissues appear unremarkable. IMPRESSION: No acute cardiopulmonary findings. Dictated by: Barbara Reed M.D. on 04/11/2020 at 15:03 Approved by: Barbara Reed M.D. on 04/11/2020 at 15:03 ECG Data Attestation: I personally reviewed and interpreted this ECG as follows: Prior ECG tracings: available for review Interpretation: Sinus rhythm rate at 71. Normal [place]. DC interval 158, QRS duration 95, QT/QTC 399/421 Nonspecific T wave abnormality with flat Twaves in V3-V6 MDM Narrative Medical decision making narrative: This is a 39 year female who has tested positive for COVID test about a week ago with symptoms onset for last 10 days. Patient presents to ED with increase short of breath and feeling restlessness and not herself. EKG was normal sinus rhythm with nonspecific T wave abnormality. Chest x-ray without acute findings such as pneumonia, pleural effusion, pneumothorax, and heart size is normal. COVID related labs are assuring. No signs of sepsis, or increased procalcitonin, LDH, ferritin, CRP and no leukocytosis. Chemistry test was unremarkable except very mildly elevated AST, ALT. cardiac enzymes were negative. D-dimer was negative per age adjusted and D-dimer 300. Patient given Combivent inhaler with spacer with improved symptoms. It is likely patient will benefit from using albuterol 2 puffs every 4 hours as needed for short of breath, frequent cough, chest tightness and discharged to home with prepack. Patient advise continue with home treatment with Tylenol and or Motrin as needed and use inhaler for short of breath. Patient has oximeter at home that she can check and advised to but check as needed when she has increase short of breath. Return precautions were discussed with patient and she verbalized understanding in agreement with the treatment plan. <Natasha Santana, DO - Last Filed: 04/11/20 18:58> Lab Data Labs: Lab Results 04/11/20 04/11/20 04/11/20 Range/Units 14:45 14:45 14:45 WBC 4.7 (4.5-11.0) X10^3/uL RBC 4.69 (4.0-5.2) X10^6/uL Hgb 12.3 (12.0-16.0) g/dL Hct 37.7 (36-46) % MCV 80.3 (80-100) fL MCH 26.2 (26-34) PG MCHC 32.7 (30-36) % RDW 14.7 (11.6-14.8) % Plt Count 287 (150-400) X10^3/uL Neut % (Auto) 61.9 (50-75) % Lymph % (Auto) 27.2 (25-40) % [place] % (Auto) 8.6 (3-14) % Eos % (Auto) 2.1 (2-4) % Baso % (Auto) 0.2 (0-2) % Neut # (Auto) 2900 (0828-4404) /uL Lymph # (Auto) 1300 (3382-2943) /uL [place] # (Auto) 400 (0-900) /uL Eos # (Auto) 100 (0-450) /uL Baso # (Auto) 0 (0-100) /uL D-Dimer 300 H (<230) ng/mL Sodium (137-145) mmol/L Potassium (3.4-5.1) mmol/L Chloride (98-107) mmol/L Carbon Dioxide (22-32) mmol/L BUN (7-17) mg/dL Creatinine (0.52-1.04) mg/dL Estimated GFR (>60) mL/min BUN/Creatinine Ratio (6-22) Glucose (70-100) mg/dL Lactate (0.7-2.1) mmol/L Calcium (8.4-10.2) mg/dL Ferritin (6-137) ng/mL Total Bilirubin (0.2-1.3) mg/dL AST (14-36) IU/L ALT (<35) IU/L Alkaline Phosphatase (38-126) U/L Lactate Dehydrogenase (313-618) U/L Total Creatine Kinase (30-135) U/L CK-MB (CK-2) CK-MB (CK-2) Rel Index Troponin I (0.01-0.034) ng/mL C-Reactive Protein (<1.0) mg/dL NT-Pro-B Natriuret Pep (<125) pg/mL Total Protein (6.3-8.2) g/dL Albumin (3.5-5.0) g/dL Globulin (1.7-4.1) g/dL Albumin/Globulin Ratio (1.0-2.8) Procalcitonin < 0.05 (<0.5) ng/mL 04/11/20 04/11/20 Range/Units 14:45 14:45 WBC (4.5-11.0) X10^3/uL RBC (4.0-5.2) X10^6/uL Hgb (12.0-16.0) g/dL Hct (36-46) % MCV (80-100) fL MCH (26-34) PG MCHC (30-36) % RDW (11.6-14.8) % Plt Count (150-400) X10^3/uL Neut % (Auto) (50-75) % Lymph % (Auto) (25-40) % [place] % (Auto) (3-14) % Eos % (Auto) (2-4) % Baso % (Auto) (0-2) % Neut # (Auto) (8543-7629) /uL Lymph # (Auto) (1059-4034) /uL [place] # (Auto) (0-900) /uL Eos # (Auto) (0-450) /uL Baso # (Auto) (0-100) /uL D-Dimer (<230) ng/mL Sodium 138 (137-145) mmol/L Potassium 3.7 (3.4-5.1) mmol/L Chloride 106 (98-107) mmol/L Carbon Dioxide 27 (22-32) mmol/L BUN 11 (7-17) mg/dL Creatinine 0.51 L (0.52-1.04) mg/dL Estimated GFR > 60.0 (>60) mL/min BUN/Creatinine Ratio 21.6 (6-22) Glucose 118 H (70-100) mg/dL Lactate 1.2 (0.7-2.1) mmol/L Calcium 9.3 (8.4-10.2) mg/dL Ferritin 11 (6-137) ng/mL Total Bilirubin 0.1 L (0.2-1.3) mg/dL AST 47 H (14-36) IU/L ALT 64 H (<35) IU/L Alkaline Phosphatase 82 (38-126) U/L Lactate Dehydrogenase 455 (313-618) U/L Total Creatine Kinase 54 (30-135) U/L CK-MB (CK-2) TNP CK-MB (CK-2) Rel Index TNP Troponin I < 0.012 (0.01-0.034) ng/mL C-Reactive Protein 0.7 (<1.0) mg/dL NT-Pro-B Natriuret Pep 28 (<125) pg/mL Total Protein 7.8 (6.3-8.2) g/dL Albumin 4.4 (3.5-5.0) g/dL Globulin 3.4 (1.7-4.1) g/dL Albumin/Globulin Ratio 1.3 (1.0-2.8) Procalcitonin (<0.5) ng/mL Discharge Plan Departure Patient Disposition: Home Clinical Impression: COVID-19 Instructions: DI for COVID-19 (Suspected or Confirmed ) Activity Restrictions/Additional Instructions: You have been diagnosed with [short of breath with COVID-19 infection. Labs and x-ray tests are assuring. You were treated with inhaler in ED which improved her symptoms. You can use albuterol inhaler 2 puffs every 4 hours as needed for short of breath, frequent cough, chest tightness. Please hydrate well and rest.] CDC Guidelines for home isolation: You must quarantine for 14 days. - Stay away from others - Limit contact with pets and animals: If you must care for a pet, wash your hands before and after interacting with them - Wear a mask if you are sick - Cover your mouth and nose with a tissue when you cough or sneeze. Dispose of tissues in a lined trash can and wash your hands immediately with soap and water for at least 20 seconds. If soap and water are not available, clean hands with alcohol-based hand sugar cane farm manager that contains at least 60% alcohol. - Clean your hands often with soap and water for at least 20 seconds - Avoid touching your eyes, nose and mouth with unwashed hands - Do not share dishes, drinking glasses, cups, eating utensils, towels, or bedding with other people in your home. After using these items, wash them thoroughly with soap and water or put in the simulation technician. - Clean high-touch surfaces in your isolation area (?sick room? and bathroom) every day; let a caregiver clean and disinfect high-touch surfaces in other areas of the home. Clean the area or item with soap and water or another detergent if it is dirty. Then, use a household disinfectant. Seek medical attention, but call first: - Seek medical care right away if your illness is worsening (for example, if you have difficulty breathing). - Call your doctor before going in: Before going to the doctor?s office or emergency room, call ahead and tell them your symptoms. They will tell you what to do. - If possible, put on a facemask before you enter the building. If you can?t put on a facemask, try to keep a safe distance from other people (at least 6 feet away). This will help protect the people in the office or waiting room. - Follow care instructions from your healthcare provider and local health department: Your local health authorities will give instructions on checking your symptoms and reporting information. Emergency warning signs for COVID-19: - Difficulty breathing or shortness of breath - Persistent pain or pressure in the chest - New confusion or inability to arouse - Bluish lips or face What to do: *Take your medications as directed. You can continue to use [id number] Tylenol and or Motrin as needed for discomfort and fever. *Return to ED if you have any new, worsening, or concerning symptoms, such as [c hest pain, short of breath, near fainting, O2 said below 93% in room air with short of breath, fever not managed with Tylenol and or Motrin, unable to tolerate fluids, emergency worsening signs as above or any acute concerns]. Prescriptions: No Action meclizine 25 mg tablet 25 mg PO BID-TID PRN (Reason: dizziness) Qty: 14 RF: 0 ondansetron 4 mg tablet,disintegrating 4 mg PO TID-QID PRN (Reason: nausea and vomiting) Qty: 10 RF: 0 Referrals: Az Low DO [Primary Care Provider] - <Natasha Santana DO - Last Filed: 04/11/20 18:58> Cosign ED Attending Cosmattieature Attestation: I was immediately available in the department for consultation. Documentation has been reviewed. Case reviewed including imaging, labs and findings today.
[2020-04-11 14:57] LABS: Add Manual Diff / Slide Review NO; Basophils Absolute Auto 0 /uL (0-100); Basophils Percent Auto 0.2 % (0-2); Eosinophils Absolute Auto 100 /uL (0-450); Eosinophils Percent Auto 2.1 % (2-4); Hematocrit 37.7 % (36-46); Hemoglobin 12.3 g/dL (12.0-16.0); Lymphocytes Absolute Auto 1300 /uL (1100-4500); Lymphocytes Percent Auto 27.2 % (25-40); Mean Corpuscular HGB Conc 32.7 % (30-36); Mean Corpuscular Hemoglobin 26.2 PG (26-34); Mean Corpuscular Volume 80.3 fL (80-100); Monocytes Absolute Auto 400 /uL (0-900); Monocytes Percent Auto 8.6 % (3-14); Neutrophils Absolute Auto 2900 /uL (1500-7000); Neutrophils Percent Auto 61.9 % (50-75); Platelet Count 287 X10^3/uL (150-400); Red Blood Cell Count 4.69 X10^6/uL (4.0-5.2); Red Cell Distribution Width 14.7 % (11.6-14.8); White Blood Cell Count 4.7 X10^3/uL (4.5-11.0)
[2020-04-11] MEDS: ALBUTEROL/IPRATROPIUM MDI 2 PUFF INH (15:04)
[2020-04-11 15:05] LABS: D Dimer 300 ng/mL (<230)
[2020-04-11 15:06] VITALS: PULSE 74; RESP 16; O2SAT 96
[2020-04-11 15:09] LABS: Lactate (Lactic Acid) 1.2 mmol/L (0.7-2.1)
[2020-04-11 15:11] LABS: Alanine Aminotransferase 64 IU/L (<35); Albumin 4.4 g/dL (3.5-5.0); Albumin Globulin Ratio 1.3 (1.0-2.8); Alkaline Phosphatase 82 U/L (38-126); Aspartate Aminotransferase 47 IU/L (14-36); BUN Creatinine Ratio 21.6 (6-22); Bilirubin Total 0.1 mg/dL (0.2-1.3); Blood Urea Nitrogen 11 mg/dL (7-17); C-Reactive Protein Quant 0.7 mg/dL (<1.0); Calcium 9.3 mg/dL (8.4-10.2); Carbon Dioxide 27 mmol/L (22-32); Chloride 106 mmol/L (98-107); Creatine Kinase 54 U/L (30-135); Estimated Glomerular Filt Rate > 60.0 mL/min (>60); Globulin 3.4 g/dL (1.7-4.1); Glucose 118 mg/dL (70-100); HEMOLYSIS < 15 (0-50); Lactate Dehydrogenase 455 U/L (313-618); Potassium 3.7 mmol/L (3.4-5.1); Sodium 138 mmol/L (137-145); Total Protein 7.8 g/dL (6.3-8.2)
[2020-04-11 15:21] LABS: NT-proBNP (BNP-Adult 18+) 28 pg/mL (<125); Troponin I < 0.012 ng/mL (0.01-0.034)
[2020-04-11 15:26] LABS: Procalcitonin < 0.05 ng/mL (<0.5)
[2020-04-11 15:44] LABS: Ferritin 11 ng/mL (6-137)
[2020-04-11] MEDS: ALBUTEROL HFA PREPACK 1 BOX MISC (15:59)
[2020-04-11 16:13] VITALS: BP 131/74; PULSE 74; RESP 14; O2SAT 97
== END 2020-04-11 16:15 | disposition home or self-care (01) ==
PROVIDERS: Emergency Provider Nurse Practitioner Family; PCP Family Medicine
DX: U07.1 COVID-19 (principal); R06.02 Shortness of breath; R07.9 Chest pain, unspecified
CPT/HCPCS: 36415; 71045; 80053; 82550; 82728; 83605; 83615; 83880; 84145; 84484; 85025; 85379; 86140; 87040; 93005; 94640; 99283; 99284

== ENCOUNTER → 2020-04-26 17:20 | Outpatient (CLI) | payer OTHER, SELFPAY ==
[2020-04-26] MEDS: COVID-19 VACC(MODERNA-1)/PF 100 MCG/0.5 ML VIAL IM (17:32)
== END ==
PROVIDERS: PCP Family Medicine; Visit Provider Internal Medicine
DX: Z23 Encounter for immunization (principal)
CPT/HCPCS: 0011A; 91301

== ENCOUNTER → 2021-01-14 09:19 | Outpatient (CLI) | payer OTHER, SELFPAY | PROVIDERS: PCP Family Medicine; Visit Provider Physician Assistant | DX: R30.9 Painful micturition, unspecified (principal) | CPT/HCPCS: 87086 ==

== ENCOUNTER → 2021-01-16 14:42 | Outpatient (CLI) | payer OTHER, SELFPAY ==
--- NOTE | 2021-01-16 14:43 | DI.US.S_ITS ---
PROCEDURE: US PELVIC COMPLETE INDICATIONS: URINARY FREQUENCY AND PELVIC PRESSURE TECHNIQUE: Real-time scanning was performed of the pelvic organs, with image documentation. Additional endovaginal scanning was necessary due to incomplete visualization of the adnexal and endometrial structures by transabdominal scanning. COMPARISON: [facility], US, PELVIC COMPLETE, 12/07/2012, 10:16. [facility], US, PELVIC COMPLETE, 03/18/2010, 10:36. [facility], CT, CT ABDOMEN PELVIS W CON, 07/08/2018, 3:15. [facility], US, US PELVIC COMPLETE, 04/21/2019, 12:09. FINDINGS: Uterus: Uterus is normal in size at 8.2 x 7 2 x 5.7 cm. The uterus is heterogeneous, yet without focal fibroids seen. The endometrium measures 9 mm in combined thickness. Simple and complex nabothian cysts can be seen. Ovaries: The right ovary measures 4.1 x 1.4 x 2.2 cm. There is an anechoic right paraovarian follicle seen that measures up to 1.6 cm. The left ovary measures 2.9 x 2.5 x 2.6 cm. There is a dominant left follicle that measures up to 2.5 cm, which is considered to be within physiologic limits. No adnexal masses are seen. Other: No pathologic free abdominal or pelvic fluid. IMPRESSION: No significant pelvic ultrasound abnormality can be seen. Dictated by: Kevin Sanchez M.D. on 01/16/2021 at 14:41 Approved by: Kevin Sanchez M.D. on 01/16/2021 at 14:43
== END ==
PROVIDERS: PCP Family Medicine; Referring Provider Physician Assistant; Visit Provider Physician Assistant
DX: R10.2 Pelvic and perineal pain; R35.0 Frequency of micturition; N88.8 Other specified noninflammatory disorders of cervix uteri
CPT/HCPCS: 76830; 76856

== ENCOUNTER 2021-01-25 08:39 | Emergency (ER) | payer OTHER, SELFPAY ==
[2021-01-25 08:53] VITALS: PULSE 71; O2SAT 99
[2021-01-25 09:00] VITALS: BP 140/92; PULSE 71; O2SAT 96
[2021-01-25 09:20] VITALS: BP 141/84; PULSE 70; RESP 18; TEMP 36.8; O2SAT 100
--- NOTE | 2021-01-25 09:22 | ED.ABDPAIN ---
HPI - Abdominal Pain General Chief Complaint: Abdominal Pain Stated Complaint: Rt side abd pain Time Seen by Provider: 01/25/21 09:17 Source: patient Mode of arrival: Ambulatory Limitations: no limitations History of Present Illness HPI narrative: This is a 40-year-old female comes emergency department with abdominal discomfort for the past 3 weeks. Patient states she notes that when she urinates she does not always feel like she completely empties her bladder but denies any frequency, urgency or dysuria. She has had some discomfort sort of generalized but a little bit more on the right side. Sometimes into the right flank but not persistently. No fevers or chills. She has had some mild nausea and slightly decreased appetite. No vomiting. No chest pain or shortness of breath. No cold cough or congestion symptoms. No new vaginal bleeding or discharge. Last menstrual cycle was January 08. She has been mildly constipated but had a soft stool although small amount yesterday. She denies any daily medications besides vitamins. No prior surgeries. Allergies to antibiotics. No tobacco, rare alcohol, no illicit. Related Data Previous Rx's Medication Instructions Recorded ondansetron HCl 4 mg tablet 4 mg PO Q6H PRN #7 tab 01/25/21 (Zofran) Allergies Allergy/AdvReac Type Severity Reaction Status Date / Time Influenza Virus Vaccines AdvReac Mild GOT REALLY Verified 01/14/21 09:29 [INFLUENZA VIRUS VACCINES] SICK levofloxacin [LEVOFLOXACIN] AdvReac Mild DIZZY/VOMIT Verified 01/14/21 09:29 ING Penicillins [PENICILLINS] AdvReac Mild DIZZY/VOMIT Verified 01/14/21 09:29 ING Review of Systems Review of Systems ROS Unobtainable: All systems reviewed & are unremarkable except as noted in HPI and below Patient History Medical History (Updated 01/25/21 @ 12:06 by Natasha Santana DO) Healthy adult Menorrhagia Weight loss counseling, encounter for Surgical History History of third molar tooth extraction History of tonsillectomy Family History Mother No problems noted. Father No problems noted. Social History Smoking Status: Never smoker alcohol intake: current Smoking Status: Never smoker alcohol intake frequency: holidays/special occasions only Substance Use Type: does not use Exam Narrative Exam Narrative: GEN: well nourished, well appearing female, alert and oriented x 3, patient appears to be in mild distress. HEENT: Atraumatic, pupils are equal round reactive to light, extraocular movements are intact, nares are clear, TMs are clear with no fluid, there is no conjunctival pallor. HEART: Regular rate and rhythm without murmur, clicks, rubs. LUNGS:Lungs clear to auscultation, no wheezes, rales, crackles, chest moves symmetrically ABD:bowel sounds normal, soft, mild generalized tenderness. No guarding, rebound, rigidity, no masses noted, no hepatosplenomegaly :No CVA tenderness MSCL: Non-tender, full range of motion, normal gait NEURO:CN 2-12 intact, sensation normal SKIN: No rash, erythema or skin changes. Initial Vital Signs Initial Vital Signs: Vital Signs Pulse Rate 71 01/25/21 08:53 Pulse Oximetry 99 01/25/21 08:53 Course Orders Ordered: ED Orders 01/25/21 09:56 Urine Culture Stat Urine Microscopic Stat 01/25/21 10:11 Complete Blood Count AUTO DIFF Stat Comprehensive Metabolic Panel Stat Lipase Stat 01/25/21 11:01 CT abdomen pelvis w con Stat Discontinued Medications Ondansetron HCl (Ondansetron 4 Mg/2 Ml Inj) 4 mg IV NOW ONE Stop: 01/25/21 09:57 Last Admin: 01/25/21 10:21 Dose: 4 mg Documented by: BARBARA Reevaluation(s) Reevaluation #1: Patient feels more comfortable after Zofran. Reviewed her findings. Abdominal exam continues to be reassuring. Urine shows questionable infection. Culture is pending. She does have constipation on her CT, as well as a right hemorrhagic ovarian cyst. These could both potentially be causing some pain. Time: 12:39 Vital Signs Vital signs: Vital Signs - 8 hr 01/25/21 08:53 01/25/21 09:00 01/25/21 09:20 Temperature 98.3 F Pulse Rate 71 71 70 Respiratory Rate 18 Blood Pressure 140/92 H 141/84 H Pulse Oximetry 99 96 100 01/25/21 09:30 01/25/21 12:47 Temperature 98.4 F Pulse Rate 72 70 Respiratory Rate 18 Blood Pressure 165/74 H 164/75 H Pulse Oximetry 99 99 MDM - Abdominal Pain Lab Data Result diagrams: 01/25/21 10:11 01/25/21 10:11 Labs: Lab Results 01/25/21 01/25/21 01/25/21 Range/Units 09:56 10:11 10:11 WBC 6.8 (4.5-11.0) X10^3/uL RBC 4.45 (4.0-5.2) X10^6/uL Hgb 11.6 L (12.0-16.0) g/dL Hct 35.3 L (36-46) % MCV 79.3 L (80-100) fL MCH 25.9 L (26-34) PG MCHC 32.7 (30-36) % RDW 14.1 (11.6-14.8) % Plt Count 355 (150-400) X10^3/uL Neut % (Auto) 65.6 (50-75) % Lymph % (Auto) 23.8 L (25-40) % [place] % (Auto) 8.3 (3-14) % Eos % (Auto) 1.5 L (2-4) % Baso % (Auto) 0.8 (0-2) % Neut # (Auto) 4500 (6000-3645) /uL Lymph # (Auto) 1600 (4937-8535) /uL [place] # (Auto) 600 (0-900) /uL Eos # (Auto) 100 (0-450) /uL Baso # (Auto) 100 (0-100) /uL Sodium 138 (137-145) mmol/L Potassium 4.1 (3.4-5.1) mmol/L Chloride 105 (98-107) mmol/L Carbon Dioxide 25 (22-32) mmol/L BUN 8 (7-17) mg/dL Creatinine 0.47 L (0.52-1.04) mg/dL Estimated GFR > 60.0 (>60) mL/min BUN/Creatinine Ratio 17.0 (6-22) Glucose 106 H (70-100) mg/dL Calcium 9.4 (8.4-10.2) mg/dL Total Bilirubin 0.4 (0.2-1.3) mg/dL AST 33 (14-36) IU/L ALT 39 H (<35) IU/L Alkaline Phosphatase 78 (38-126) U/L Total Protein 7.8 (6.3-8.2) g/dL Albumin 4.7 (3.5-5.0) g/dL Globulin 3.1 (1.7-4.1) g/dL Albumin/Globulin Ratio 1.5 (1.0-2.8) Lipase 75 (23-300) U/L Urine RBC None seen (0-5/HPF) Urine WBC 1-5/hpf (0-5/HPF) Ur Squamous Epith Cells 1-5 /hpf (0-5/HPF) Amorphous Sediment 1+ Urine Bacteria None seen (None) Ur Culture Indicated? Specimen cultured Point of care testing: Point of Care Testing Test Results Negative Urine Dip Bedside Urine Glucose Negative Bedside Urine Bilirubin - Negative Bedside Urine Ketone - Negative Urine Specific [place] 1.015 Bedside Urine Occult Blood - Negative Bedside Urine pH 6.0 Bedside Urine Protein - Negative Bedside Urine Urobilinogen - Negative Bedside Urine Nitrite - Negative Bedside Urine Leukocytes +/- [address] scan - abdomen/pelvis: Radiologist's Impression: [address] [id number] Scan ReportSigned Patient: Nadira Chávez [facility]#: [id number]: 1980Acct:[id number]/Sex: 40 / FDate of Service: 01/25/21Loc: EDAccession Number: [id number] Procedure: CT abdomen pelvis w con Ordering Provider: Natasha Santana D.O. PROCEDURE: CT ABDOMEN PELVIS W CON INDICATIONS: generalized abd pain x 3 wks. TECHNIQUE: After the administration of IV contrast, axial sections were acquired from the lung bases to the pubic symphysis. Coronal and sagittal reformats were performed. For radiation dose reduction, the following was used: automated exposure control, adjustment of mA and/or kV according to patient size. COMPARISON: [facility], US, US PELVIC COMPLETE, 01/16/2021, 14:52. [facility], CT, CT ABDOMEN PELVIS W CON, 07/08/2018, 3:15. FINDINGS: Image quality: Excellent. Lung bases: Unremarkable. The previously seen left lower lobe pulmonary nodule is only faintly seen on series 3, image 5 and considered to be benign. A small hiatal hernia is incidentally noted. Heart: No significant findings. ABDOMEN: Liver: Unremarkable. Gallbladder: Unremarkable. Biliary ducts: Unremarkable. Pancreas: Unremarkable. Spleen: Unremarkable. Adrenal Glands: Stable right adrenal cysts are seen. The left adrenal gland is unremarkable. Kidneys and Ureters: Unremarkable. Stomach and Bowel: Stomach, small bowel loops, and colon are unremarkable. There is a moderate amount of stool seen within the proximal colon. Peritoneum: No abnormal intraperitoneal fluid. No free air. Ventral Wall: A moderate periumbilical hernia is seen, containing fat. Abdominal Nodes: No retroperitoneal or mesenteric adenopathy by size criteria. Vessels: Aorta and inferior vena cava are normal in size. PELVIS: Pelvic Organs: The uterus appears normal for age. No adnexal masses are seen. Is there is a right ovarian hemorrhagic cyst seen, as on series 2, image 56 and on series 4, image 30, measuring up to 2.3 cm. Bladder: Unremarkable. Pelvic Nodes: No enlarged lymph nodes. Miscellaneous: No inguinal hernias are seen. Bones: Unremarkable. IMPRESSION: There is a moderate amount of stool seen within the proximal colon. Please correlate with an underlying history of constipation. A 2.3 cm right ovarian hemorrhagic cyst is seen. If it would be clinically appropriate, a followup pelvic ultrasound could be considered in 6 weeks to assure resolution/ improvement. Incidental note is made of: Faintly seen left lower lobe pulmonary nodule, which is considered to be benign. Small hiatal hernia Stable right adrenal cysts Moderate fat containing periumbilical hernia Dictated by: Kevin Sanchez M.D. on 01/25/2021 at 10:42 Approved by: Kevin Sanchez M.D. on 01/25/2021 at 10:46 MDM Narrative Medical decision making narrative: This is a 40-year-old female with anemia which appears close to her baseline. She does have some microcytosis. She has had abdominal pain for 3 weeks with some nausea but no other significant symptoms. She has had some constipation in imaging notes as well. There is a right ovarian cyst appears to be hemorrhagic and may also be contributing to her symptoms. Urine sample was sent, not clearly infected but there is some suspicion. We discussed whether not to start oral antibiotics, cultures pending decision was made to contact patient to start her on antibiotics if culture is positive. Discharge Plan Departure Patient Disposition: Home Clinical Impression: Constipation Ovarian cyst Qualifiers: Laterality: right Qualified Code(s): N83.201 - Unspecified ovarian cyst, right side Instructions: DI for Ovarian Cyst Activity Restrictions/Additional Instructions: Your imaging today does show a right ovarian hemorrhagic cyst. It is also noted that you have moderate amount of stool if you are having chronic constipation this may also be contributing to your symptoms. A stool softener may be helpful. There is a moderate amount of fat in the periumbilical hernia but no signs of bowel in the hernia. You may take antinausea medication as needed. Prescription sent to [facility] in [place]. Your urine was cultured today, it should resolve the next 48-72 hours if positive we should call you to start you on antibiotics. Your welcome to touch base with us to follow-up your results as well. Your labs do show mild anemia. Follow-up with your physician for recheck. Please return for fevers, new or worsening abdominal pain, persistent vomiting, lightheadedness or passing out, black or bloody stools or other new or concerning symptoms. Prescriptions: New ondansetron HCl [Zofran] 4 mg tablet 4 mg PO Q6H PRN (Reason: nausea and vomiting) Qty: 7 RF: 0 Referrals: Az Low DO [Primary Care Provider] -
[2021-01-25 09:30] VITALS: BP 165/74; PULSE 72; O2SAT 99
[2021-01-25] MEDS: ONDANSETRON 4 MG/2 ML INJ IV (10:21)
[2021-01-25 10:25] LABS: Add Manual Diff / Slide Review NO; Basophils Absolute Auto 100 /uL (0-100); Basophils Percent Auto 0.8 % (0-2); Eosinophils Absolute Auto 100 /uL (0-450); Eosinophils Percent Auto 1.5 % (2-4); Hematocrit 35.3 % (36-46); Hemoglobin 11.6 g/dL (12.0-16.0); Lymphocytes Absolute Auto 1600 /uL (1100-4500); Lymphocytes Percent Auto 23.8 % (25-40); Mean Corpuscular HGB Conc 32.7 % (30-36); Mean Corpuscular Hemoglobin 25.9 PG (26-34); Mean Corpuscular Volume 79.3 fL (80-100); Monocytes Absolute Auto 600 /uL (0-900); Monocytes Percent Auto 8.3 % (3-14); Neutrophils Absolute Auto 4500 /uL (1500-7000); Neutrophils Percent Auto 65.6 % (50-75); Platelet Count 355 X10^3/uL (150-400); Red Blood Cell Count 4.45 X10^6/uL (4.0-5.2); Red Cell Distribution Width 14.1 % (11.6-14.8); White Blood Cell Count 6.8 X10^3/uL (4.5-11.0)
[2021-01-25 10:42] LABS: Alanine Aminotransferase 39 IU/L (<35); Albumin 4.7 g/dL (3.5-5.0); Albumin Globulin Ratio 1.5 (1.0-2.8); Alkaline Phosphatase 78 U/L (38-126); Aspartate Aminotransferase 33 IU/L (14-36); Bilirubin Total 0.4 mg/dL (0.2-1.3); Blood Urea Nitrogen 8 mg/dL (7-17); Calcium 9.4 mg/dL (8.4-10.2); Carbon Dioxide 25 mmol/L (22-32); Chloride 105 mmol/L (98-107); Estimated Glomerular Filt Rate > 60.0 mL/min (>60); Globulin 3.1 g/dL (1.7-4.1); Glucose 106 mg/dL (70-100); HEMOLYSIS < 15 (0-50); Lipase 75 U/L (23-300); Potassium 4.1 mmol/L (3.4-5.1); Sodium 138 mmol/L (137-145); Total Protein 7.8 g/dL (6.3-8.2)
--- NOTE | 2021-01-25 11:01 | DI.CT.S_ITS ---
PROCEDURE: CT ABDOMEN PELVIS W CON INDICATIONS: generalized abd pain x 3 wks. TECHNIQUE: After the administration of IV contrast, axial sections were acquired from the lung bases to the pubic symphysis. Coronal and sagittal reformats were performed. For radiation dose reduction, the following was used: automated exposure control, adjustment of mA and/or kV according to patient size. COMPARISON: [facility], US, US PELVIC COMPLETE, 01/16/2021, 14:52. [facility], CT, CT ABDOMEN PELVIS W CON, 07/08/2018, 3:15. FINDINGS: Image quality: Excellent. Lung bases: Unremarkable. The previously seen left lower lobe pulmonary nodule is only faintly seen on series 3, image 5 and considered to be benign. A small hiatal hernia is incidentally noted. Heart: No significant findings. ABDOMEN: Liver: Unremarkable. Gallbladder: Unremarkable. Biliary ducts: Unremarkable. Pancreas: Unremarkable. Spleen: Unremarkable. Adrenal Glands: Stable right adrenal cysts are seen. The left adrenal gland is unremarkable. Kidneys and Ureters: Unremarkable. Stomach and Bowel: Stomach, small bowel loops, and colon are unremarkable. There is a moderate amount of stool seen within the proximal colon. Peritoneum: No abnormal intraperitoneal fluid. No free air. Ventral Wall: A moderate periumbilical hernia is seen, containing fat. Abdominal Nodes: No retroperitoneal or mesenteric adenopathy by size criteria. Vessels: Aorta and inferior vena cava are normal in size. PELVIS: Pelvic Organs: The uterus appears normal for age. No adnexal masses are seen. Is there is a right ovarian hemorrhagic cyst seen, as on series 2, image 56 and on series 4, image 30, measuring up to 2.3 cm. Bladder: Unremarkable. Pelvic Nodes: No enlarged lymph nodes. Miscellaneous: No inguinal hernias are seen. Bones: Unremarkable. IMPRESSION: There is a moderate amount of stool seen within the proximal colon. Please correlate with an underlying history of constipation. A 2.3 cm right ovarian hemorrhagic cyst is seen. If it would be clinically appropriate, a followup pelvic ultrasound could be considered in 6 weeks to assure resolution/ improvement. Incidental note is made of: Faintly seen left lower lobe pulmonary nodule, which is considered to be benign. Small hiatal hernia Stable right adrenal cysts Moderate fat containing periumbilical hernia Dictated by: Kevin Sanchez M.D. on 01/25/2021 at 10:42 Approved by: Kevin Sanchez M.D. on 01/25/2021 at 10:46
[2021-01-25 11:36] LABS: Amorphous Sediment Urine 1+; Bacteria Urine None Seen; Culture Indicated Urine Specimen Cultured; RBC Urine None Seen (0-5/HPF); Squamous Epithelial Cell Urine 1-5 /HPF (0-5/HPF); WBC Urine 1-5/HPF (0-5/HPF)
[2021-01-25 12:47] VITALS: BP 164/75; PULSE 70; RESP 18; TEMP 36.9; O2SAT 99
== END 2021-01-25 12:49 | disposition home or self-care (01) ==
PROVIDERS: Emergency Provider Emergency Medicine; PCP Family Medicine
DX: K59.00 Constipation, unspecified (principal); N83.201 Unspecified ovarian cyst, right side
CPT/HCPCS: 74177; 80053; 81003; 81015; 81025; 83690; 85025; 87086; 96374; 99284; J2405; Q9967

== ENCOUNTER → 2021-03-21 12:07 | Outpatient (CLI) | payer OTHER, SELFPAY | PROVIDERS: PCP Family Medicine; Referring Provider Internal Medicine; Visit Provider Internal Medicine | DX: Z23 Encounter for immunization (principal) | CPT/HCPCS: 90471; 90686 ==

== ENCOUNTER → 2021-08-20 10:50 | Outpatient (CLI) | payer OTHER, SELFPAY ==
--- NOTE | 2021-08-20 10:53 | DI.MG.S_ITS ---
BILATERAL DIGITAL SCREENING MAMMOGRAM 3D/2D WITH CAD: 08/20/2021 CLINICAL: Routine screening. Comparison is made to exams dated: 10/07/2018 ultrasound, 10/07/2018 ultrasound, and 10/07/2018 mammogram - [facility]. There are scattered fibroglandular elements in both breasts. Current study was also evaluated with a Computer Aided Detection (CAD) system. No significant masses, calcifications, or other findings are seen in either breast. There has been no significant interval change. IMPRESSION: NEGATIVE There is no mammographic evidence of malignancy. A 1 year screening mammogram is recommended. This exam was interpreted at Station ID: [id number]. NOTE: For mammograms, a report in lay terms will be sent to the patient. Approximately 15% of breast malignancies will not be visualized mammographically. In the management of a palpable breast mass, a negative mammogram must not discourage biopsy of a clinically suspicious lesion. Electronically Signed By: Dedrick Desir M.D., jr/[place]:08/20/2021 11:48:17 letter sent: Normal Exam ACR BI-RADS Category 1: Negative [id number]
== END ==
PROVIDERS: PCP Family Medicine; Referring Provider Family Medicine; Visit Provider Family Medicine
DX: Z12.31 Encounter for screening mammogram for malignant neoplasm of breast (principal)
CPT/HCPCS: 77063; 77067

== ENCOUNTER → 2022-04-09 14:54 | Outpatient (CLI) | payer OTHER, SELFPAY ==
[2022-04-09 16:48] LABS: Influenza A - CEPHEID Flu A POSITIVE (NEGATIVE); Influenza B - CEPHEID Flu B NEGATIVE (NEGATIVE); Respiratory Syncytial Virus Negative (Negative)
[2022-04-09 16:58] LABS: COVID-19 CEPHEID 4-PLEX PCR Negative (Negative)
== END ==
PROVIDERS: PCP Family Medicine; Visit Provider Family Medicine
DX: H92.09 Otalgia, unspecified ear (principal); R09.81 Nasal congestion; R50.9 Fever, unspecified; R51.9 Headache, unspecified; Z20.822 Contact with and (suspected) exposure to COVID-19
CPT/HCPCS: 0241U

== ENCOUNTER 2022-05-22 19:32 | Emergency (ER) | payer OTHER, SELFPAY ==
[2022-05-22 19:45] VITALS: BP 169/76; PULSE 75; RESP 15; TEMP 36.3; O2SAT 100; BMI 40.0
[2022-05-22 20:07] LABS: Add Manual Diff / Slide Review NO; Basophils Absolute Auto 100 /uL (0-100); Basophils Percent Auto 0.8 % (0-2); Eosinophils Absolute Auto 100 /uL (0-450); Eosinophils Percent Auto 1.3 % (2-4); Hematocrit 36.8 % (36-46); Hemoglobin 11.7 g/dL (12.0-16.0); Lymphocytes Absolute Auto 2300 /uL (1100-4500); Lymphocytes Percent Auto 22.7 % (25-40); Mean Corpuscular HGB Conc 31.7 % (30-36); Mean Corpuscular Volume 75.9 fL (80-100); Monocytes Absolute Auto 700 /uL (0-900); Monocytes Percent Auto 7.1 % (3-14); Neutrophils Absolute Auto 6800 /uL (1500-7000); Neutrophils Percent Auto 68.1 % (50-75); Platelet Count 400 X10^3/uL (150-400); Red Blood Cell Count 4.85 X10^6/uL (4.0-5.2); Red Cell Distribution Width 16.8 % (11.6-14.8); White Blood Cell Count 9.9 X10^3/uL (4.5-11.0)
[2022-05-22 20:19] LABS: Alanine Aminotransferase 29 IU/L (<35); Albumin 4.6 g/dL (3.5-5.0); Albumin Globulin Ratio 1.3 (1.0-2.8); Alkaline Phosphatase 104 U/L (38-126); Aspartate Aminotransferase 29 IU/L (14-36); BUN Creatinine Ratio 24.1 (6-22); Bilirubin Total 0.5 mg/dL (0.2-1.3); Blood Urea Nitrogen 13 mg/dL (7-17); Carbon Dioxide 17 mmol/L (22-32); Chloride 105 mmol/L (98-107); Estimated Glomerular Filt Rate > 60 mL/min (>60); Globulin 3.6 g/dL (1.7-4.1); Glucose 120 mg/dL (70-100); HEMOLYSIS 38 (0-50); Lipase 160 U/L (23-300); Potassium 4.2 mmol/L (3.4-5.1); Sodium 135 mmol/L (137-145); Total Protein 8.2 g/dL (6.3-8.2)
--- NOTE | 2022-05-22 21:20 | ED_ITS ---
HPI - General Adult General Chief complaint: Abdominal Pain Stated complaint: Umbilical/Right side pain Time Seen by Provider: 05/22/22 21:19 Source: patient Mode of arrival: Ambulatory History of Present Illness HPI narrative: 41-year-old woman with no significant medical history presents with acute onset periumbilical pain. She describes no fevers, vomiting, diarrhea. She notes she has had similar pain but tonight seems to be worse. She does not describe any specific activity that seem to exacerbate it. She notes that it occurred about an hour after dinner. She comes in for further evaluation. Related Data Previous Rx's Medication Instructions Recorded nystatin 100,000 unit/gram topical 1 applic topical BID #15 grams 08/29/21 cream triamcinolone acetonide 0.1 % 1 applic topical BID #15 grams 08/29/21 topical cream doxycycline hyclate 100 mg tablet 100 mg PO BID #14 tabs 04/09/22 Allergies Allergy/AdvReac Type Severity Reaction Status Date / Time levofloxacin [LEVOFLOXACIN] AdvReac Mild DIZZY/VOMIT Verified 04/09/22 14:51 ING Penicillins [PENICILLINS] AdvReac Mild DIZZY/VOMIT Verified 04/09/22 14:51 ING Review of Systems Review of Systems Narrative: Remainder of complete review of systems is otherwise unremarkable except for that included in the HPI. Patient History Medical History (Updated 05/22/22 @ 21:39 by Beverly Field MD) Acute bacterial sinusitis Excessive cerumen in left ear canal Healthy adult Menorrhagia Umbilical hernia Weight loss counseling, encounter for Surgical History History of third molar tooth extraction History of tonsillectomy Family History Mother No problems noted. Father No problems noted. Social History Smoking Status: Never smoker alcohol intake: current Smoking Status: Never smoker alcohol intake frequency: a few times a month Substance Use Type: does not use Exam Initial Vital Signs Initial Vital Signs: Vital Signs Temperature 97.4 F L 05/22/22 19:45 Pulse Rate 75 05/22/22 19:45 Respiratory Rate 15 05/22/22 19:45 Blood Pressure 169/76 H 05/22/22 19:45 Pulse Oximetry 100 05/22/22 19:45 Oxygen Delivery Method 05/22/22 19:45 General: Healthy appearing, in no acute distress. Able to give a complete and coherent history. Well-nourished well-developed HEENT: Moist mucous membranes, normal sclera with reactive pupils, Respiratory: Lungs are clear to auscultation, no wheezing no rales no rhonchi. Full and symmetrical air movement Cardiac: Regular rate and rhythm no murmurs no bruits Abdomen: Soft, good bowel tones, no flank pain. She has a small umbilical hernia with no evidence of incarceration. There is no infection. Mild tenderness over the upper abdomen without point tenderness over the gallbladder or epigastrium. There is no rebound or guarding. Skin: Warm and dry, no rashes Neurologic: Grossly neurologically intact with no obvious asymmetries or abnormalities Extremities: No trauma, well perfused Psych: Cooperative, appropriate insight and affect Course Orders Ordered: ED Orders 05/22/22 19:49 EKG-12 Lead Stat 05/22/22 20:00 Complete Blood Count AUTO DIFF Stat Comprehensive Metabolic Panel Stat Lipase Stat Ondansetron HCl (Ondansetron 4 Mg Odt) 4 mg PO NOW PRN PRN Reason: Nausea And Vomiting Ondansetron HCl (Ondansetron 4 Mg/2 Ml Inj) 4 mg IV NOW PRN PRN Reason: Nausea And Vomiting Vital Signs Vital signs: Vital Signs - 8 hr 05/22/22 19:45 Temperature 97.4 F L Pulse Rate 75 Respiratory Rate 15 Blood Pressure 169/76 H Pulse Oximetry 100 Oxygen Delivery Method Room Air Medical Decision Making Lab Data 05/22/22 20:00 05/22/22 20:00 Labs: Lab Results 05/22/22 05/22/22 Range/Units 20:00 20:00 WBC 9.9 (4.5-11.0) X10^3/uL RBC 4.85 (4.0-5.2) X10^6/uL Hgb 11.7 L (12.0-16.0) g/dL Hct 36.8 (36-46) % MCV 75.9 L (80-100) fL MCH 24.0 L (26-34) PG MCHC 31.7 (30-36) % RDW 16.8 H (11.6-14.8) % Plt Count 400 (150-400) X10^3/uL Neut % (Auto) 68.1 (50-75) % Lymph % (Auto) 22.7 L (25-40) % [place] % (Auto) 7.1 (3-14) % Eos % (Auto) 1.3 L (2-4) % Baso % (Auto) 0.8 (0-2) % Neut # (Auto) 6800 (5690-1596) /uL Lymph # (Auto) 2300 (6632-1023) /uL [place] # (Auto) 700 (0-900) /uL Eos # (Auto) 100 (0-450) /uL Baso # (Auto) 100 (0-100) /uL Sodium 135 L (137-145) mmol/L Potassium 4.2 (3.4-5.1) mmol/L Chloride 105 (98-107) mmol/L Carbon Dioxide 17 L (22-32) mmol/L BUN 13 (7-17) mg/dL Creatinine 0.54 (0.52-1.04) mg/dL Estimated GFR > 60 (>60) mL/min BUN/Creatinine Ratio 24.1 H (6-22) Glucose 120 H (70-100) mg/dL Calcium 9.0 (8.4-10.2) mg/dL Total Bilirubin 0.5 (0.2-1.3) mg/dL AST 29 (14-36) IU/L ALT 29 (<35) IU/L Alkaline Phosphatase 104 (38-126) U/L Total Protein 8.2 (6.3-8.2) g/dL Albumin 4.6 (3.5-5.0) g/dL Globulin 3.6 (1.7-4.1) g/dL Albumin/Globulin Ratio 1.3 (1.0-2.8) Lipase 160 (23-300) U/L Urine Dip Bedside Urine Glucose Negative Bedside Urine Bilirubin - Negative Bedside Urine Ketone - Negative Urine Specific [place] 1.030 Bedside Urine Occult Blood - Negative Bedside Urine pH 5.5 Bedside Urine Protein - Negative Bedside Urine Urobilinogen - Negative Bedside Urine Nitrite - Negative Bedside Urine Leukocytes - Negative Esterase Point of care testing: Urine Dip Bedside Urine Glucose Negative Bedside Urine Bilirubin - Negative Bedside Urine Ketone - Negative Urine Specific [place] 1.030 Bedside Urine Occult Blood - Negative Bedside Urine pH 5.5 Bedside Urine Protein - Negative Bedside Urine Urobilinogen - Negative Bedside Urine Nitrite - Negative Bedside Urine Leukocytes - Negative Esterase MDM Narrative Medical decision making narrative: CC: Periumbilical pain. This is a new problem, uncertain diagnosis and uncertain prognosis will need further workup Complicating co-morbidities: Moderate obesity Corroborating data: Data collected from: patient, Medical records reviewed: Primary care in ob gyn physician assistant notes reviewed Differential considered: Umbilical hernia, incarcerated umbilical hernia, periumbilical cellulitis care, pain secondary to gallbladder, epigastric pain, acute surgical abdomen Exam documented above, pertinent findings include: Small defect at approximately 12:00 on the umbilicus with no incarcerated tissue appreciated. Lab Test results independently reviewed as above. Pertinent findings: Chemistries are unremarkable CBC is unremarkable Discussion: 41-year-old woman with periumbilical pain. Palpation of the small umbilical hernia defect completely reproduces her pain. At this point I do not think that this is gallbladder, pancreas or stomach causing her pain. There is no evidence of obstruction certainly she does not have an acute surgical abdomen. Considered additional imaging however she is currently improving in terms of pain and laboratory studies are completely unremarkable so I do not think that acute imaging studies are indicated at this time. Did suggest that she follow-up with General surgery as she is been having more frequent episodes of periumbilical pain and each episode seems to be a bit more painful and lasting a bit longer. We discussed lying back and relaxing to allow abdominal contents to be manipulated out of the small hernia defect and reasons to return if she is unable to reduce any hernia she appreciates. Questions are answered and she is safe for discharge Disposition: see below, along with detailed discharge instructions that have been reviewed with patient as well as indications for ED re-evaluation and add itional outpatient follow up Discharge Plan Departure Patient Disposition: Home Clinical Impression: Hernia, umbilical Qualifiers: Obstruction and gangrene presence: without obstruction or gangrene Qualified Code(s): K42.9 - Umbilical hernia without obstruction or gangrene Instructions: DI for Ventral Hernia Activity Restrictions/Additional Instructions: Thank you for coming in today You have a small inguinal hernia. It is not incarcerated (stuck). The fact that it is bothering you more is a very good reason to schedule a consultation with a general surgeon to discuss umbilical hernias. It is small enough that you may not need to have it repaired but with the increasing pain that you are having you may choose to do so. The surgeon will review the pros and the cons with you so you can make an informed decision In the meantime, using 400 mg of ibuprofen (2 [id number] pills) and 1 Tylenol every 6 hours can be very helpful in controlling pain. If it is particularly troublesome, I would encourage you to lay down on your back, relaxes much as you are able and gently push at the upper portion of your belly button to try to encourage whatever tissue has gone through the hernia to go back into your belly. If you find that you are unable to do this, the pain is getting worse, your unable to have a bowel movement or pass gas or notice any blood in your stool, you do need to return to the emergency department If you find that you are getting worse or develop any new symptoms, please feel free to return to the emergency department for further evaluation. Prescriptions: No Action nystatin 100,000 unit/gram cream 1 applic topical BID Qty: 15 2RF Rx Instructions: Apply small amount topically, mixed with triamcinolone, to affected area twice daily as needed. triamcinolone acetonide 0.1 % cream 1 applic topical BID Qty: 15 2RF Rx Instructions: Apply small amount topically, mixed with nystatin, to affected area twice daily as needed. doxycycline hyclate 100 mg tablet 100 mg PO BID Qty: 14 0RF Referrals: Agustín Low DO [Primary Care Provider] - Stand Alone Forms: Patient Portal/API
[2022-05-22 21:47] VITALS: BP 135/72; PULSE 65; RESP 18; O2SAT 100
== END 2022-05-22 21:48 | disposition home or self-care (01) ==
PROVIDERS: Emergency Provider Emergency Medicine; PCP Family Medicine
DX: K42.9 Umbilical hernia without obstruction or gangrene (principal)
CPT/HCPCS: 36415; 80053; 81003; 83690; 85025; 99283

== ENCOUNTER 2022-07-14 09:02 | Emergency (ER) | payer OTHER, SELFPAY ==
[2022-07-14 09:09] VITALS: BP 154/83; PULSE 90; O2SAT 98
[2022-07-14 09:15] VITALS: BP 154/83; PULSE 85; RESP 20; TEMP 36.8; O2SAT 97; BMI 39.6
--- NOTE | 2022-07-14 09:18 | DI.RAD.S_ITS ---
PROCEDURE: XR CHEST 1V INDICATIONS: chest pain TECHNIQUE: One view of the chest was acquired. COMPARISON: [facility], CR, XR CHEST 1V, 04/11/2020, 14:47. FINDINGS: Surgical changes and devices: None. Lungs and pleura: Lungs are clear. No pleural effusions or pneumothorax. Mediastinum: Mediastinal contours appear normal. Heart size is normal. Bones and chest wall: No suspicious bony lesions. Overlying soft tissues appear unremarkable. IMPRESSION: No acute process. Dictated by: Lester Miles M.D. on 07/14/2022 at 10:01 Approved by: Lester Miles M.D. on 07/14/2022 at 10:02
[2022-07-14 09:30] VITALS: PULSE 77; RESP 24; O2SAT 97
--- NOTE | 2022-07-14 09:43 | PC.NURSE ---
Pt reports primarily back pain at this time, per Dr. Santana hold on aspirin.
[2022-07-14 09:45] LABS: Add Manual Diff / Slide Review NO; Basophils Absolute Auto 0 /uL (0-100); Basophils Percent Auto 0.5 % (0-2); Eosinophils Absolute Auto 100 /uL (0-450); Eosinophils Percent Auto 0.9 % (2-4); Hematocrit 33.3 % (36-46); Hemoglobin 10.9 g/dL (12.0-16.0); Lymphocytes Absolute Auto 1400 /uL (1100-4500); Lymphocytes Percent Auto 13.6 % (25-40); Mean Corpuscular HGB Conc 32.8 % (30-36); Mean Corpuscular Hemoglobin 23.8 PG (26-34); Mean Corpuscular Volume 72.6 fL (80-100); Monocytes Absolute Auto 900 /uL (0-900); Monocytes Percent Auto 9.1 % (3-14); Neutrophils Absolute Auto 7600 /uL (1500-7000); Neutrophils Percent Auto 75.9 % (50-75); Platelet Count 356 X10^3/uL (150-400); Red Blood Cell Count 4.59 X10^6/uL (4.0-5.2); Red Cell Distribution Width 17.3 % (11.6-14.8)
[2022-07-14 09:54] LABS: INR 1.2 (0.9-1.3); Prothrombin Time 13.3 SECONDS (10.1-12.7)
[2022-07-14 09:57] LABS: PTT Partial Thromboplastin Tim 30 SECONDS (26-36)
--- NOTE | 2022-07-14 09:57 | ED.CHESTPAIN ---
HPI - Chest Pain General Chief Complaint: Chest Pain Stated Complaint: SOB pain back shoulders back/ fever T-3 Time Seen by Provider: 07/14/22 09:48 Source: patient Mode of arrival: Ambulatory Limitations: no limitations History of Present Illness HPI narrative: This is a 42-year-old female with complaint of 3 days of fevers, muscle aches productive sputum that she describes is sort of sick. She is had chest congestion little bit of chest discomfort yesterday she had chest pain which he states was present for a little while and then moved to her back she has not having it persistently. She states she has had some sensation of shortness of breath she was able to cough up a large amount of phlegm that was helpful. She is had some nausea but no active vomiting today. She did throw up once yesterday or the day before. She is had little bit of headache. No diarrhea no constipation. No swelling in her extremities. No urinary symptoms. She is noticed her lymph nodes or little enlarged in her ears feel full. Patient states her daughter has had infectious symptoms over the last several days as well. She states no daily medications. Prior tonsillectomy is her only surgery. States allergic to penicillin she received IV and vomited got very dizzy. Denies tobacco. Related Data Previous Rx's Medication Instructions Recorded nystatin 100,000 unit/gram topical 1 applic topical BID #15 grams 08/29/21 cream triamcinolone acetonide 0.1 % 1 applic topical BID #15 grams 08/29/21 topical cream doxycycline hyclate 100 mg tablet 100 mg PO BID #14 tabs 04/09/22 nirmatrelvir 300 mg (150 mg See Rx Instructions PO .COMPLEX 06/08/22 x2)-ritonavir 100 mg tablet,dose #30 tabs pack(EUA) (Paxlovid) Allergies Allergy/AdvReac Type Severity Reaction Status Date / Time levofloxacin [LEVOFLOXACIN] AdvReac Mild DIZZY/VOMIT Verified 04/09/22 14:51 ING Penicillins [PENICILLINS] AdvReac Mild DIZZY/VOMIT Verified 04/09/22 14:51 ING Review of Systems Review of Systems ROS Unobtainable: All systems reviewed & are unremarkable except as noted in HPI and below Patient History Medical History Acute bacterial sinusitis Excessive cerumen in left ear canal Healthy adult Menorrhagia Umbilical hernia Weight loss counseling, encounter for Surgical History History of third molar tooth extraction History of tonsillectomy Family History Mother No problems noted. Father No problems noted. Social History Smoking Status: Never smoker alcohol intake: current Smoking Status: Never smoker alcohol intake frequency: holidays/special occasions only Substance Use Type: does not use Exam Narrative Exam Narrative: GEN: well nourished, well appearing female, alert and oriented x 3, patient appears to be in mild distress. HEENT: Atraumatic, pupils are equal round reactive to light, extraocular movements are intact, patient does have nasal congestion on examination. HEART: Regular rate and rhythm without murmur, clicks, rubs. Pulses are equal in upper extremities LUNGS:Lungs clear to auscultation, no wheezes, rales, crackles, chest moves symmetrically, no tachypnea or accessory muscle use. Speaks in full sentences. ABD:bowel sounds normal, soft, non-tender, no guarding, rebound, rigidity, no masses noted, no hepatosplenomegaly :No CVA tenderness MSCL: Non-tender, no muscle atrophy, muscles strength 5/5 upper and lower extremities, full range of motion, normal gait NEURO:CN 2-12 intact, sensation normal SKIN: No rash, erythema or other skin changes Initial Vital Signs Initial Vital Signs: Vital Signs Pulse Rate 90 07/14/22 09:09 Blood Pressure 154/83 H 07/14/22 09:09 Pulse Oximetry 98 07/14/22 09:09 Course Orders Ordered: ED Orders 07/14/22 09:18 XR chest 1V Stat EKG-12 Lead Stat 07/14/22 09:33 Complete Blood Count AUTO DIFF Stat Comprehensive Metabolic Panel Stat Lipase Stat Magnesium Stat PTT Partial Thromboplastin Steve Stat Prothrombin Time INR Stat Troponin & CK Cardiac Panel Stat 07/14/22 09:44 Respiratory Panel (Film Array) Stat Discontinued Medications Acetaminophen (Acetaminophen 325 Mg Tablet) 650 mg PO NOW ONE Stop: 07/14/22 10:14 Last Admin: 07/14/22 10:29 Dose: Not Given Documented By: AT Aspirin (Aspirin 81 Mg Chew Tab) 324 mg PO NOW ONE Stop: 07/14/22 09:19 Last Admin: 07/14/22 10:23 Dose: Not Given Documented By: AT Vital Signs Vital signs: Vital Signs - 8 hr 07/14/22 09:15 07/14/22 09:09 07/14/22 09:09 Temperature 98.2 F Pulse Rate 85 90 Respiratory Rate 20 Blood Pressure 154/83 H 154/83 H Pulse Oximetry 97 98 Oxygen Delivery Method Room Air 07/14/22 09:30 07/14/22 10:00 07/14/22 10:00 Temperature Pulse Rate 77 73 Respiratory Rate 24 21 Blood Pressure 132/68 Pulse Oximetry 97 96 Oxygen Delivery Method 07/14/22 10:30 07/14/22 10:30 Temperature Pulse Rate 74 Respiratory Rate 18 Blood Pressure 114/59 L Pulse Oximetry 97 Oxygen Delivery Method Room Air MDM - Chest Pain Lab Data 07/14/22 09:33 07/14/22 09:33 Labs: Lab Results 07/14/22 07/14/22 07/14/22 Range/Units 09:33 09:33 09:33 WBC 10.0 (4.5-11.0) X10^3/uL RBC 4.59 (4.0-5.2) X10^6/uL Hgb 10.9 L (12.0-16.0) g/dL Hct 33.3 L (36-46) % MCV 72.6 L (80-100) fL MCH 23.8 L (26-34) PG MCHC 32.8 (30-36) % RDW 17.3 H (11.6-14.8) % Plt Count 356 (150-400) X10^3/uL Neut % (Auto) 75.9 H (50-75) % Lymph % (Auto) 13.6 L (25-40) % Tama % (Auto) 9.1 (3-14) % Eos % (Auto) 0.9 L (2-4) % Baso % (Auto) 0.5 (0-2) % Neut # (Auto) 7600 H (2662-3095) /uL Lymph # (Auto) 1400 (3907-4473) /uL Tama # (Auto) 900 (0-900) /uL Eos # (Auto) 100 (0-450) /uL Baso # (Auto) 0 (0-100) /uL PT 13.3 H (10.1-12.7) SECONDS INR 1.2 (0.9-1.3) APTT 30 (26-36) SECONDS Sodium 136 L (137-145) mmol/L Potassium 3.8 (3.4-5.1) mmol/L Chloride 105 (98-107) mmol/L Carbon Dioxide 23 (22-32) mmol/L BUN 7 (7-17) mg/dL Creatinine 0.58 (0.52-1.04) mg/dL Estimated GFR > 60 (>60) mL/min BUN/Creatinine Ratio 12.1 (6-22) Glucose 110 H (70-100) mg/dL Calcium 8.9 (8.4-10.2) mg/dL Magnesium 2.3 (1.6-2.3) mg/dL Total Bilirubin 0.1 L (0.2-1.3) mg/dL AST 21 (14-36) IU/L ALT 25 (<35) IU/L Alkaline Phosphatase 81 (38-126) U/L Total Creatine Kinase 87 (30-135) U/L CK-MB (CK-2) TNP CK-MB (CK-2) Rel Index TNP Troponin I < 0.012 (0.01-0.034) ng/mL Total Protein 8.0 (6.3-8.2) g/dL Albumin 4.3 (3.5-5.0) g/dL Globulin 3.7 (1.7-4.1) g/dL Albumin/Globulin Ratio 1.2 (1.0-2.8) Lipase 66 (23-300) U/L Chlamy pneumoniae PCR (Not Detect) Adenovirus (PCR) (Not Detect) B. pertussis DNA (PCR) (Not Detecte) B.parapertussis DNA PCR (Not Detecte) Coronavirus OC43 (PCR) (Not Detect) Coronavirus HKU1 (PCR) (Not Detect) Coronavirus 229E (PCR) (Not Detect) SARS-CoV-2 (PCR) (Not Detecte) Coronavirus NL63 (PCR) (Not Detect) Human Metapneumovir PCR (Not Detect) Influenza Type A (PCR) (Not Detect) Influenza Type B (PCR) (Not Detect) M. pneumoniae (PCR) (Not Detect) Parainfluenza 1 (PCR) (Not Detect) Parainfluenza 2 (PCR) (Not Detect) Parainfluenza 3 (PCR) (Not Detect) Parainfluenza 4 (PCR) (Not Detect) RSV (PCR) (Not Detect) Entero/Rhino (PCR) (Not Detect) 07/14/22 Range/Units 09:44 WBC (4.5-11.0) X10^3/uL RBC (4.0-5.2) X10^6/uL Hgb (12.0-16.0) g/dL Hct (36-46) % MCV (80-100) fL MCH (26-34) PG MCHC (30-36) % RDW (11.6-14.8) % Plt Count (150-400) X10^3/uL Neut % (Auto) (50-75) % Lymph % (Auto) (25-40) % Tama % (Auto) (3-14) % Eos % (Auto) (2-4) % Baso % (Auto) (0-2) % Neut # (Auto) (0296-0449) /uL Lymph # (Auto) (1354-4765) /uL Tama # (Auto) (0-900) /uL Eos # (Auto) (0-450) /uL Baso # (Auto) (0-100) /uL PT (10.1-12.7) SECONDS INR (0.9-1.3) APTT (26-36) SECONDS Sodium (137-145) mmol/L Potassium (3.4-5.1) mmol/L Chloride (98-107) mmol/L Carbon Dioxide (22-32) mmol/L BUN (7-17) mg/dL Creatinine (0.52-1.04) mg/dL Estimated GFR (>60) mL/min BUN/Creatinine Ratio (6-22) Glucose (70-100) mg/dL Calcium (8.4-10.2) mg/dL Magnesium (1.6-2.3) mg/dL Total Bilirubin (0.2-1.3) mg/dL AST (14-36) IU/L ALT (<35) IU/L Alkaline Phosphatase (38-126) U/L Total Creatine Kinase (30-135) U/L CK-MB (CK-2) CK-MB (CK-2) Rel Index Troponin I (0.01-0.034) ng/mL Total Protein (6.3-8.2) g/dL Albumin (3.5-5.0) g/dL Globulin (1.7-4.1) g/dL Albumin/Globulin Ratio (1.0-2.8) Lipase (23-300) U/L Chlamy pneumoniae PCR Not detected (Not Detect) Adenovirus (PCR) Not detected (Not Detect) B. pertussis DNA (PCR) Not detected (Not Detecte) B.parapertussis DNA PCR Not detected (Not Detecte) Coronavirus OC43 (PCR) Not detected (Not Detect) Coronavirus HKU1 (PCR) Not detected (Not Detect) Coronavirus 229E (PCR) Not detected (Not Detect) SARS-CoV-2 (PCR) Not detected (Not Detecte) Coronavirus NL63 (PCR) Not detected (Not Detect) Human Metapneumovir PCR Not detected (Not Detect) Influenza Type A (PCR) Not detected (Not Detect) Influenza Type B (PCR) Not detected (Not Detect) M. pneumoniae (PCR) Not detected (Not Detect) Parainfluenza 1 (PCR) Not detected (Not Detect) Parainfluenza 2 (PCR) Not detected (Not Detect) Parainfluenza 3 (PCR) Not detected (Not Detect) Parainfluenza 4 (PCR) Not detected (Not Detect) RSV (PCR) Not detected (Not Detect) Entero/Rhino (PCR) Not detected (Not Detect) Imaging Data Chest x-ray: Radiologist's Impression: Close Chest X-Ray (Signed) Lester Miles - 07/14/22 Mammogram Screening (Signed) Dedrick Desir - 08/20/21 Abdomen/Pelvis CT (Signed) Kevin Sanchez - 01/25/21 DI Result 01/16/21 Pelvis Ultrasound (Signed) Kevin Sanchez - 01/16/21 Chest X-Ray (Signed) Barbara Reed - 04/11/[address] (Signed) Eric Desai - 02/08/20 EKG Rpt. 02/07/20 Chest X-Ray (Signed) Efe Lopez - 06/28/19 EKG Rpt. 06/28/19 Mammogram Diagnostic (Signed) Bennie Koch - 10/07/18 Breast Ultrasound (Signed) KochBennie moreno - 10/07/18 Breast Ultrasound (Signed) KochBennie - 10/07/18 Abdomen/Pelvis CT (Signed) Eric Desai - 07/08/18 Chest X-Ray (Signed) Kevin Sanchez - 01/10/18 Telemetry Strips 01/10/18 Launch?Image [address] [address] XRay Report Signed Patient: Nadira Chávez MR#: [id number] : 1980 Acct:[id number] Age/Sex: 42 / F Date of Service: 07/14/22 Loc: ED Accession Number: [id number] ?? Procedure: XR chest 1V Ordering Provider: Natasha Santana D.O. PROCEDURE:? XR CHEST 1V ? INDICATIONS:? chest pain ? TECHNIQUE:? One view of the chest was acquired.? ? COMPARISON:? [facility], CR, XR CHEST 1V, 04/11/2020, 14:47. ? FINDINGS:? ? Surgical changes and devices:? None.? ? Lungs and pleura:? Lungs are clear.? No pleural effusions or pneumothorax.? ? Mediastinum:? Mediastinal contours appear normal.? Heart size is normal.? ? Bones and chest wall:? No suspicious bony lesions.? Overlying soft tissues appear unremarkable.? ? IMPRESSION:? No acute process. ? ? Dictated by: Lester Miles M.D. on 07/14/2022 at 10:01 ? ? Approved by: Lester Miles M.D. on 07/14/2022 at 10:02?? ECG Data Attestation: I personally reviewed and interpreted this ECG as follows: Prior ECG tracings: not available for review Interpretation: Sinus rhythm rate of 78 PA 154 QRS of 90 [address]TC [address] No acute ST elevation or depression noted. Patient does not have prior for comparison. MDM Narrative Medical decision making narrative: This is a 42-year-old female who presents with fever, nasal congestion and now chest congestion for the past 3 days. Patient sounds very congested on examination in her upper respiratory tract. Lungs are clear on examination she is not tachycardic no signs of sepsis patient chest x-ray is negative. Labs show hemoglobin of 10, no leukocytosis platelets of 356. Coags negative, CMP shows appropriate electrolytes and renal function bilirubin, LFTs troponin lipase are negative. Suspect patient has more of a viral upper respiratory symptoms continue with supportive care. Respiratory panel was sent and is negative today. Discharge Plan Departure Patient Disposition: Home Clinical Impression: Upper respiratory infection Instructions: DI for Viral Upper Respiratory Infection -- Adult Activity Restrictions/Additional Instructions: Follow-up if fevers or persisting beyond 7-10 days. You may continue with Tylenol up to a 1000 mg every 6 hours and/or ibuprofen up to 600 mg every 6 hours. You can use [id number] cough medication as needed. Please return for fevers that are persisting, new or worsening chest pain, shortness of breath, lightheadedness or passing out, new swelling in your extremities, persistent nausea vomiting, signs of dehydration or other new or concerning changes. Prescriptions: No Action nystatin 100,000 unit/gram cream 1 applic topical BID Qty: 15 2RF Rx Instructions: Apply small amount topically, mixed with triamcinolone, to affected area twice daily as needed. triamcinolone acetonide 0.1 % cream 1 applic topical BID Qty: 15 2RF Rx Instructions: Apply small amount topically, mixed with nystatin, to affected area twice daily as needed. Paxlovid (EUA) 300 mg (150 mg x 2)-100 mg tablets,dose pack See Rx Instructions PO .COMPLEX Qty: 30 0RF Rx Instructions: take TWO 150 mg tablets of nirmatrelvir with ONE 100 mg tablet of ritonavir twice daily for 5 days PO doxycycline hyclate 100 mg tablet 100 mg PO BID Qty: 14 0RF Referrals: Agustín Low DO [Primary Care Provider] - Stand Alone Forms: Work Release Note, Patient Portal/API
[2022-07-14 09:58] LABS: Alanine Aminotransferase 25 IU/L (<35); Albumin 4.3 g/dL (3.5-5.0); Albumin Globulin Ratio 1.2 (1.0-2.8); Alkaline Phosphatase 81 U/L (38-126); Aspartate Aminotransferase 21 IU/L (14-36); BUN Creatinine Ratio 12.1 (6-22); Bilirubin Total 0.1 mg/dL (0.2-1.3); Blood Urea Nitrogen 7 mg/dL (7-17); Calcium 8.9 mg/dL (8.4-10.2); Carbon Dioxide 23 mmol/L (22-32); Chloride 105 mmol/L (98-107); Creatine Kinase 87 U/L (30-135); Estimated Glomerular Filt Rate > 60 mL/min (>60); Globulin 3.7 g/dL (1.7-4.1); Glucose 110 mg/dL (70-100); HEMOLYSIS < 15 (0-50); Lipase 66 U/L (23-300); Magnesium 2.3 mg/dL (1.6-2.3); Potassium 3.8 mmol/L (3.4-5.1); Sodium 136 mmol/L (137-145)
[2022-07-14 10:00] VITALS: BP 132/68; PULSE 73; RESP 21; O2SAT 96
[2022-07-14 10:09] LABS: Troponin I < 0.012 ng/mL (0.01-0.034)
[2022-07-14 10:30] VITALS: BP 114/59; PULSE 74; RESP 18; O2SAT 97
[2022-07-14 10:51] LABS: Adenovirus Not Detected (Not Detect); B. parapertussis Not Detected (Not Detecte); Bordetella pertussis Not Detected (Not Detecte); Chlamydophila pneumoniae Not Detected (Not Detect); Coronavirus 229E Not Detected (Not Detect); Coronavirus HKU1 Not Detected (Not Detect); Coronavirus NL 63 Not Detected (Not Detect); Coronavirus OC43 Not Detected (Not Detect); Human Metapneumovirus Not Detected (Not Detect); Human Rhinovirus/Enterovirus Not Detected (Not Detect); Influenza A Not Detected (Not Detect); Influenza B Not Detected (Not Detect); Mycoplasma pneumoniae Not Detected (Not Detect); Parainfluenza Virus 1 Not Detected (Not Detect); Parainfluenza Virus 2 Not Detected (Not Detect); Parainfluenza Virus 3 Not Detected (Not Detect); Parainfluenza Virus 4 Not Detected (Not Detect); Respiratory Syncytial Virus Not Detected (Not Detect); SARS- CoV-2 Not Detected (Not Detecte)
--- NOTE | 2022-07-14 11:24 | PC.NURSE ---
pt called back to find out results of respiratory panel. pt informed of negative status.
== END 2022-07-14 10:35 | disposition home or self-care (01) ==
PROVIDERS: Emergency Provider Emergency Medicine; PCP Family Medicine
DX: J06.9 Acute upper respiratory infection, unspecified (principal); R50.9 Fever, unspecified; R07.9 Chest pain, unspecified; Z20.822 Contact with and (suspected) exposure to COVID-19
CPT/HCPCS: 36415; 71045; 80053; 82550; 83690; 83735; 84484; 85025; 85610; 85730; 87633; 93005; 99283; 99284

== ENCOUNTER → 2022-10-10 10:04 | Outpatient (CLI) | payer OTHER, SELFPAY ==
--- NOTE | 2022-10-10 10:08 | DI.MG.S_ITS ---
BILATERAL DIGITAL SCREENING MAMMOGRAM 3D/2D WITH CAD: 10/10/2022 CLINICAL: Routine screening. Comparison is made to exams dated: 08/20/2021 mammogram, 10/07/2018 ultrasound, 10/07/2018 ultrasound, and 10/07/2018 mammogram - [facility]. There are scattered areas of fibroglandular density in both breasts (category b / 25%-50% glandular tissue). Current study was also evaluated with a Computer Aided Detection (CAD) system. No significant masses, calcifications, or other findings are seen in either breast. There has been no significant interval change. IMPRESSION: NEGATIVE There is no mammographic evidence of malignancy. A 1 year screening mammogram is recommended. Based on the Tyrer Cuzick model (a risk assessment model) the patient's lifetime risk is 6.6% and her 10 year risk is 1.0%. According to the ACR, ACS, and NCCN guidelines, an annual breast MRI exam along with mammogram is recommended if the patient's lifetime risk is 20% or greater. This exam was interpreted at Station ID: [id number]. NOTE: For mammograms, a report in lay terms will be sent to the patient. Approximately 15% of breast malignancies will not be visualized mammographically. In the management of a palpable breast mass, a negative mammogram must not discourage biopsy of a clinically suspicious lesion. Electronically Signed By: Eric beltran/[place]:10/12/2022 07:43:43 letter sent: Normal Exam ACR BI-RADS Category 1: Negative [id number]
== END ==
PROVIDERS: PCP Family Medicine; Referring Provider Family Medicine; Visit Provider Family Medicine
DX: Z12.31 Encounter for screening mammogram for malignant neoplasm of breast (principal)
CPT/HCPCS: 77063; 77067

== ENCOUNTER 2022-12-02 09:34 | Emergency (ER) | payer OTHER, SELFPAY ==
[2022-12-02] VITALS (7 sets, daily range): BP systolic 106–162; BP diastolic 58–83; PULSE 58–75; RESP 15–16; TEMP 36.1; O2SAT 96–99; BMI 39.0
[2022-12-02 10:01] LABS: Bacteria Urine Many (>30); Culture Indicated Urine Specimen Cultured; RBC Urine 5-10/HPF (0-5/HPF); Squamous Epithelial Cell Urine 10-30 /HPF (0-5/HPF); WBC Urine 30-100/HPF (0-5/HPF)
[2022-12-02 10:06] LABS: Add Manual Diff / Slide Review NO; Basophils Absolute Auto 0 /uL (0-100); Basophils Percent Auto 0.7 % (0-2); Eosinophils Absolute Auto 100 /uL (0-450); Eosinophils Percent Auto 1.8 % (2-4); Hematocrit 31.6 % (36-46); Hemoglobin 10.3 g/dL (12.0-16.0); Lymphocytes Absolute Auto 1500 /uL (1100-4500); Lymphocytes Percent Auto 23.3 % (25-40); Mean Corpuscular HGB Conc 32.5 % (30-36); Mean Corpuscular Hemoglobin 22.8 PG (26-34); Mean Corpuscular Volume 70.2 fL (80-100); Monocytes Absolute Auto 500 /uL (0-900); Monocytes Percent Auto 7.3 % (3-14); Neutrophils Absolute Auto 4400 /uL (1500-7000); Neutrophils Percent Auto 66.9 % (50-75); Platelet Count 380 X10^3/uL (150-400); Red Blood Cell Count 4.51 X10^6/uL (4.0-5.2); Red Cell Distribution Width 17.5 % (11.6-14.8); White Blood Cell Count 6.6 X10^3/uL (4.5-11.0)
[2022-12-02] MEDS: ONDANSETRON 4 MG/2 ML INJ IV (10:06)
[2022-12-02 10:19] LABS: Alanine Aminotransferase 31 IU/L (<35); Albumin 4.3 g/dL (3.5-5.0); Albumin Globulin Ratio 1.2 (1.0-2.8); Alkaline Phosphatase 88 U/L (38-126); Aspartate Aminotransferase 28 IU/L (14-36); BUN Creatinine Ratio 17.9 (6-22); Bilirubin Total 0.3 mg/dL (0.2-1.3); Blood Urea Nitrogen 10 mg/dL (7-17); Calcium 8.9 mg/dL (8.4-10.2); Carbon Dioxide 23 mmol/L (22-32); Chloride 104 mmol/L (98-107); Estimated Glomerular Filt Rate > 60 mL/min (>60); Globulin 3.5 g/dL (1.7-4.1); Glucose 112 mg/dL (70-100); HEMOLYSIS < 15 (0-50); Lipase 90 U/L (23-300); Potassium 3.7 mmol/L (3.4-5.1); Sodium 137 mmol/L (137-145); Total Protein 7.8 g/dL (6.3-8.2)
--- NOTE | 2022-12-02 10:34 | ED.ABDPAIN ---
HPI - Abdominal Pain General Chief Complaint: Abdominal Pain Stated Complaint: ABD PAIN, UPPER RT SIDE PAIN Time Seen by Provider: 12/02/22 10:03 Source: patient Mode of arrival: Ambulatory History of Present Illness HPI narrative: Patient 42-year-old healthy female presents today with a abdominal pain and right-sided pain. She reports that yesterday she felt some intense pain across her abdomen she thought she had the bathroom but she could not she would difficulty urinating as well. No fever chills minimal nausea no vomiting. No previous abdominal surgery. She denies any back pain or chest pain. She something does not feel quite right. Related Data Previous Rx's Medication Instructions Recorded nystatin 100,000 unit/gram topical 1 applic topical BID #15 grams 08/29/21 cream triamcinolone acetonide 0.1 % 1 applic topical BID #15 grams 08/29/21 topical cream doxycycline hyclate 100 mg tablet 100 mg PO BID #14 tabs 04/09/22 nirmatrelvir 300 mg (150 mg See Rx Instructions PO .COMPLEX 06/08/22 x2)-ritonavir 100 mg tablet,dose #30 tabs pack (Paxlovid) fluconazole 150 mg tablet 150 mg PO ONCE #1 tab 09/23/22 (Diflucan) nitrofurantoin 100 mg PO Q12H 5 days #10 caps 12/02/22 monohydrate/macrocrystals 100 mg capsule (Macrobid) Allergies Allergy/AdvReac Type Severity Reaction Status Date / Time Penicillins [PENICILLINS] Allergy Severe DIZZY/VOMIT Verified 12/02/22 09:43 ING levofloxacin [LEVOFLOXACIN] AdvReac Mild DIZZY/VOMIT Verified 12/02/22 09:43 ING Review of Systems Review of Systems ROS Unobtainable: All systems reviewed & are unremarkable except as noted in HPI and below Patient History Medical History Acute bacterial sinusitis Elevated fasting glucose Excessive cerumen in left ear canal Healthy adult Menorrhagia Umbilical hernia Weight loss counseling, encounter for Surgical History History of third molar tooth extraction History of tonsillectomy Family History Mother No problems noted. Father No problems noted. Social History Smoking Status: Never smoker alcohol intake: current Smoking Status: Never smoker alcohol intake frequency: holidays/special occasions only Substance Use Type: does not use Exam Initial Vital Signs Initial Vital Signs: Vital Signs Temperature 96.9 F L 12/02/22 09:35 Pulse Rate 75 12/02/22 09:35 Respiratory Rate 15 12/02/22 09:35 Blood Pressure 162/75 H 12/02/22 09:35 Pulse Oximetry 99 12/02/22 09:35 Oxygen Delivery Method Room Air 12/02/22 09:35 GENERAL: Alert 42-year-old female and in no acute distress. HEENT: Head atraumatic,EOMI, pupils reactive, face symmetric, moist mucous membranes CARDIOVASCULAR: Regular rate and rhythm without murmurs, rubs or gallops. RESPIRATORY: Breath sounds equal bilaterally, no wheezes rales or rhonchi. ABDOMEN: Soft, minimal abdominal discomfort periumbilical region slightly in lower abdominal region as well no guarding no rebound negative Yoder's sign EXTREMITIES: Normal range of motion, no clubbing or edema. Neurovascularly intact NEUROLOGICAL: Alert and oriented x4. SKIN: Warm, dry, no laceration, no petechiae, no rashes or lesions. Course Orders Ordered: ED Orders 12/02/22 11:55 CT abdomen pelvis w con Stat 12/02/22 12:31 US abdomen limited Stat Discontinued Medications Sodium Chloride (Normal Saline 0.9%) 1,000 mls @ 1,000 mls/hr IV BOLUS ONE Stop: 12/02/22 11:40 Last Infusion: 12/02/22 12:31 Dose: 0 mls/hr Documented By: Admin: 12/02/22 10:55 Dose: 1,000 mls/hr Documented By: NR Ketorolac Tromethamine (Ketorolac 30 Mg/Ml Vial) 15 mg IV NOW ONE Stop: 12/02/22 10:42 Last Admin: 12/02/22 10:55 Dose: 15 mg Documented By: NR Ondansetron HCl (Ondansetron 4 Mg/2 Ml Inj) 4 mg IV NOW PRN PRN Reason: Nausea And Vomiting Last Admin: 12/02/22 10:06 Dose: 4 mg Documented By: NR Vital Signs Vital signs: Vital Signs - 8 hr 12/02/22 11:30 12/02/22 11:31 12/02/22 11:31 Pulse Rate 58 L 61 Respiratory Rate Blood Pressure 106/58 L Pulse Oximetry 96 96 Oxygen Delivery Method 12/02/22 14:55 Pulse Rate 61 Respiratory Rate 16 Blood Pressure 130/81 Pulse Oximetry 99 Oxygen Delivery Method Room Air MDM - Abdominal Pain Lab Data 12/02/22 09:57 12/02/22 09:57 Labs: Lab Results 12/02/22 12/02/22 12/02/22 Range/Units 09:46 09:57 09:57 WBC 6.6 (4.5-11.0) X10^3/uL RBC 4.51 (4.0-5.2) X10^6/uL Hgb 10.3 L (12.0-16.0) g/dL Hct 31.6 L (36-46) % MCV 70.2 L (80-100) fL MCH 22.8 L (26-34) PG MCHC 32.5 (30-36) % RDW 17.5 H (11.6-14.8) % Plt Count 380 (150-400) X10^3/uL Neut % (Auto) 66.9 (50-75) % Lymph % (Auto) 23.3 L (25-40) % [place] % (Auto) 7.3 (3-14) % Eos % (Auto) 1.8 L (2-4) % Baso % (Auto) 0.7 (0-2) % Neut # (Auto) 4400 (6194-6196) /uL Lymph # (Auto) 1500 (8298-0650) /uL [place] # (Auto) 500 (0-900) /uL Eos # (Auto) 100 (0-450) /uL Baso # (Auto) 0 (0-100) /uL Sodium 137 (137-145) mmol/L Potassium 3.7 (3.4-5.1) mmol/L Chloride 104 (98-107) mmol/L Carbon Dioxide 23 (22-32) mmol/L BUN 10 (7-17) mg/dL Creatinine 0.56 (0.52-1.04) mg/dL Estimated GFR > 60 (>60) mL/min BUN/Creatinine Ratio 17.9 (6-22) Glucose 112 H (70-100) mg/dL Calcium 8.9 (8.4-10.2) mg/dL Total Bilirubin 0.3 (0.2-1.3) mg/dL AST 28 (14-36) IU/L ALT 31 (<35) IU/L Alkaline Phosphatase 88 (38-126) U/L Total Protein 7.8 (6.3-8.2) g/dL Albumin 4.3 (3.5-5.0) g/dL Globulin 3.5 (1.7-4.1) g/dL Albumin/Globulin Ratio 1.2 (1.0-2.8) Lipase 90 (23-300) U/L Urine RBC 5-10/hpf H (0-5/HPF) Urine WBC 30-100/hpf H (0-5/HPF) Ur Squamous Epith Cells 10-30 /hpf H D (0-5/HPF) Urine Bacteria Many (>30) H (None) Ur Culture Indicated? Specimen cultured Point of care testing: Point of Care Testing Test Results Negative Urine Dip Bedside Urine Glucose Negative Bedside Urine Bilirubin - Negative Bedside Urine Ketone - Negative Urine Specific [place] 1.030 Bedside Urine Occult Blood ++ Bedside Urine pH 5.5 Bedside Urine Protein + 30 Bedside Urine Urobilinogen - Negative Bedside Urine Nitrite - Negative Bedside Urine Leukocytes +++ 500 Esterase Imaging Data US - abdomen: Radiologist's Impression: PROCEDURE: US ABDOMEN LIMITED ? INDICATIONS:? RIGHT UPPER QUADRANT PAIN ? TECHNIQUE:? Real-time focused scanning was performed of the abdomen, with image documentation.? ? COMPARISON:? [facility], CT, CT ABDOMEN PELVIS W [facility], 12/02/2022, 12:03. ? FINDINGS:? There is a large stone in the gallbladder measuring 2.3 cm.? There is a question of a 0.4 x 1.0 x 0.3 cm gallbladder polyp.? No gallbladder wall thickening or pain on examination.? Question changes in his of adenomyosis. ? The liver has increased echogenicity consistent with diffuse fatty infiltration.? There is a focal area of fatty sparing superior to the main portal vein measuring 3.6 x 3.0 x 2.6 cm. ? Visualized portions of the pancreas are unremarkable. ? No dilated ducts.? Common bile duct measures 3.7 mm. ? IMPRESSION:? ? 1. Cholelithiasis. ? 2. Diffuse hepatic steatosis. ? 3. No evidence acute cholecystitis.? ? ? Dictated by: Parish Erazo M.D. on 12/02/2022 at 13:28 ? ? CT scan - abdomen/pelvis: Radiologist's Impression: PROCEDURE:? CT ABDOMEN PELVIS W CON ? INDICATIONS:? periumbilical pain ? TECHNIQUE:? After the administration of intravenous contrast, axial sections acquired from the lung bases to the pubic symphysis.? Coronal and sagittal reformats were performed.? For radiation dose reduction, the following was used:? automated exposure control, adjustment of mA and/or kV according to patient size.? ? COMPARISON:? [facility], CT, CT ABDOMEN PELVIS W CON, 01/25/2021, 11:21. ? FINDINGS:? Image quality:? Excellent.? ? Lung bases:? Unremarkable. Heart:? No significant findings. ? ABDOMEN: Liver:? Hepatic steatosis, with sparing adjacent to the falciform ligament. Gallbladder:? Cholelithiasis without wall thickening or adjacent fat stranding to suggest acute cholecystitis.? ? Biliary ducts:? Unremarkable.? ? Pancreas:? Unremarkable.? ? Spleen:? Unremarkable.? ? Adrenal Glands:? Stable right adrenal cystic lesions, which are typically benign. Kidneys and Ureters:? Unremarkable.? ? ? Stomach and Bowel:? Stomach, small bowel loops, and colon are unremarkable.? Normal appendix. Peritoneum:? No abnormal intraperitoneal fluid.? No free air.? ? Ventral Wall: ? Small umbilical hernia containing fat. Abdominal Nodes:? No retroperitoneal or mesenteric adenopathy by size criteria.? Vessels:? Aorta and inferior vena cava are normal in size.? ? PELVIS: Pelvic Organs:? Nabothian cysts.? Left ovarian cystic lesion measuring 2.9 centimeters, with perceived fluid-fluid level (series 2, image 68). Bladder:? Unremarkable.? ? Pelvic Nodes: No enlarged lymph nodes.? Miscellaneous: No hernias are seen. ? ? ? Bones:? Unremarkable.? IMPRESSION:? Left ovarian cystic lesion with perceived fluid-fluid level, probably representing a hemorrhagic cyst.? This could be confirmed with pelvic ultrasound if needed. ? Normal appendix. ? Cholelithiasis without evidence of acute cholecystitis. ? ? Dictated by: Nikhil Bernardo M.D. on 12/02/2022 at 12:14 ?? MDM Narrative Medical decision making narrative: Patient 42-year-old female who presents today with variety of symptoms she is having some abdominal pain on the right side which is pretty atypical for her. She is found to have cholelithiasis on both CT and ultrasound without evidence of cholecystitis or ascending cholangitis. She has no leukocytosis or fever. Blood work is reassuring without elevated bilirubin liver enzymes or lipase. She does have leukocytes in her urine and distant with UTI it is cultured but she is not having symptoms of UTI. However she might be having some pyelonephritis will treat her for UTI. No evidence of severe sepsis. She is allergic to penicillin and levofloxacin will put her on Macrobid. Her CT does mention a left ovarian cyst however she is not tender in her lower abdomen I think unrelated to symptoms today. Unlikely to be an ovarian torsion or abscess. Discharge Plan Departure Patient Disposition: Home Clinical Impression: Cholelithiasis, UTI (urinary tract infection), Ovarian cyst Instructions: Gallstones, DI for Urinary Tract Infection (UTI) Activity Restrictions/Additional Instructions: *You have been diagnosed with gallstone *What to do: At this time you should see surgery to be evaluated for your gallbladder to be removed. Please continue to monitor follow a gallbladder diet You were also found to have a left ovarian cyst this needs ultrasound in about 6 weeks by her primary care provider unlikely to be causing your pain or symptoms at this time *Continue to take medications as directed Motrin 600 mg every 6 hours if needed for [id number] Macrobid 100 mg twice a day for 5 days *Follow up with your primary care provider in 2-3 days or call [phone] Call surgery to schedule appointment *Return to ER if you should have increasing pain nausea vomiting fever or any new, worsening or concerning symptoms Prescriptions: New nitrofurantoin monohyd/m-cryst [Macrobid] 100 mg capsule 100 mg PO Q12H 5 Days Qty: 10 0RF Rx Instructions: must administer with a meal/food No Action nystatin 100,000 unit/gram cream 1 applic topical BID Qty: 15 2RF Rx Instructions: Apply small amount topically, mixed with triamcinolone, to affected area twice daily as needed. triamcinolone acetonide 0.1 % cream 1 applic topical BID Qty: 15 2RF Rx Instructions: Apply small amount topically, mixed with nystatin, to affected area twice daily as needed. Paxlovid 300 mg (150 mg x 2)-100 mg tablets,dose pack See Rx Instructions PO .COMPLEX Qty: 30 0RF Rx Instructions: take TWO 150 mg tablets of nirmatrelvir with ONE 100 mg tablet of ritonavir twice daily for 5 days PO fluconazole [Diflucan] 150 mg tablet 150 mg PO ONCE Qty: 1 0RF doxycycline hyclate 100 mg tablet 100 mg PO BID Qty: 14 0RF Referrals: Agustín Low DO [Primary Care Provider] - Stand Alone Forms: Patient Portal/API
[2022-12-02] MEDS: SODIUM CHLORIDE 0.9% 1,000 ML 1000 ML IV (10:55)
[2022-12-02] MEDS: KETOROLAC 30 MG/ML VIAL 15 MG IV (10:55)
--- NOTE | 2022-12-02 11:55 | DI.CT.S_ITS ---
PROCEDURE: CT ABDOMEN PELVIS W CON INDICATIONS: periumbilical pain TECHNIQUE: After the administration of intravenous contrast, axial sections acquired from the lung bases to the pubic symphysis. Coronal and sagittal reformats were performed. For radiation dose reduction, the following was used: automated exposure control, adjustment of mA and/or kV according to patient size. COMPARISON: [facility], CT, CT ABDOMEN PELVIS W CON, 01/25/2021, 11:21. FINDINGS: Image quality: Excellent. Lung bases: Unremarkable. Heart: No significant findings. ABDOMEN: Liver: Hepatic steatosis, with sparing adjacent to the falciform ligament. Gallbladder: Cholelithiasis without wall thickening or adjacent fat stranding to suggest acute cholecystitis. Biliary ducts: Unremarkable. Pancreas: Unremarkable. Spleen: Unremarkable. Adrenal Glands: Stable right adrenal cystic lesions, which are typically benign. Kidneys and Ureters: Unremarkable. Stomach and Bowel: Stomach, small bowel loops, and colon are unremarkable. Normal appendix. Peritoneum: No abnormal intraperitoneal fluid. No free air. Ventral Wall: Small umbilical hernia containing fat. Abdominal Nodes: No retroperitoneal or mesenteric adenopathy by size criteria. Vessels: Aorta and inferior vena cava are normal in size. PELVIS: Pelvic Organs: Nabothian cysts. Left ovarian cystic lesion measuring 2.9 centimeters, with perceived fluid-fluid level (series 2, image 68). Bladder: Unremarkable. Pelvic Nodes: No enlarged lymph nodes. Miscellaneous: No hernias are seen. Bones: Unremarkable. IMPRESSION: Left ovarian cystic lesion with perceived fluid-fluid level, probably representing a hemorrhagic cyst. This could be confirmed with pelvic ultrasound if needed. Normal appendix. Cholelithiasis without evidence of acute cholecystitis. Dictated by: Nikhil Bernardo M.D. on 12/02/2022 at 12:14 Approved by: Nikhil Bernardo M.D. on 12/02/2022 at 12:18
--- NOTE | 2022-12-02 12:31 | DI.US.S_ITS ---
PROCEDURE: US ABDOMEN LIMITED INDICATIONS: RIGHT UPPER QUADRANT PAIN TECHNIQUE: Real-time focused scanning was performed of the abdomen, with image documentation. COMPARISON: [facility], CT, CT ABDOMEN PELVIS W CON, 12/02/2022, 12:03. FINDINGS: There is a large stone in the gallbladder measuring 2.3 cm. There is a question of a 0.4 x 1.0 x 0.3 cm gallbladder polyp. No gallbladder wall thickening or pain on examination. Question changes in his of adenomyosis. The liver has increased echogenicity consistent with diffuse fatty infiltration. There is a focal area of fatty sparing superior to the main portal vein measuring 3.6 x 3.0 x 2.6 cm. Visualized portions of the pancreas are unremarkable. No dilated ducts. Common bile duct measures 3.7 mm. IMPRESSION: 1. Cholelithiasis. 2. Diffuse hepatic steatosis. 3. No evidence acute cholecystitis. Dictated by: Parish Erazo M.D. on 12/02/2022 at 13:28 Approved by: Parish Erazo M.D. on 12/02/2022 at 13:31
== END 2022-12-02 14:52 | disposition home or self-care (01) ==
PROVIDERS: Emergency Provider Emergency Medicine; PCP Family Medicine
DX: K80.20 Calculus of gallbladder without cholecystitis without obstruction (principal); N39.0 Urinary tract infection, site not specified; N83.202 Unspecified ovarian cyst, left side
CPT/HCPCS: 36415; 74177; 76705; 80053; 81003; 81015; 81025; 83690; 85025; 87086; 87147; 96361; 96374; 96375; 99284; J1885; J2405

== ENCOUNTER → 2022-12-19 11:26 | Outpatient (CLI) | payer OTHER, SELFPAY ==
[2022-12-19 12:36] LABS: Hemoglobin A1C% w Est Avg Glu 5.4 % (4.0-6.0)
== END ==
PROVIDERS: PCP Family Medicine; Referring Provider Family Medicine; Visit Provider Family Medicine
DX: R73.01 Impaired fasting glucose (principal)
CPT/HCPCS: 36415; 83036

== ENCOUNTER 2023-02-21 04:13 | Emergency (ER) | payer OTHER, SELFPAY ==
[2023-02-21] VITALS (12 sets, daily range): BP systolic 135–142; BP diastolic 65–72; PULSE 53–83; RESP 18–20; TEMP 36.1–36.9; O2SAT 95–100; BMI 41.0
--- NOTE | 2023-02-21 04:33 | ED.GENADULT ---
HPI - General Adult General Chief complaint: Abdominal Pain Stated complaint: abd pain/ tylenol not working Time Seen by Provider: 02/21/23 04:18 Source: patient Mode of arrival: Ambulatory History of Present Illness HPI narrative: 42-year-old female who last evening started have right-sided abdominal discomfort. She states that it woke her up from sleep at about midnight. It has been somewhat off and on since then. She also states that she feels like she is not emptying her bladder when she goes to the bathroom. She took some Tylenol without any improvement. No fevers. No nausea or vomiting. She did recently have a gallbladder removal and an umbilical hernia repair. She is never had a history of a kidney stone. She has had urinary tract infections in the past. She is also 4 days late for her menstrual cycle. She denies any changes in bowel habits. Related Data Previous Rx's Medication Instructions Recorded nystatin 100,000 unit/gram topical 1 applic topical BID #15 grams 08/29/21 cream triamcinolone acetonide 0.1 % 1 applic topical BID #15 grams 08/29/21 topical cream Allergies Allergy/AdvReac Type Severity Reaction Status Date / Time Penicillins [PENICILLINS] Allergy Severe DIZZY/VOMIT Verified 12/04/22 14:22 ING levofloxacin [LEVOFLOXACIN] AdvReac Mild DIZZY/VOMIT Verified 12/04/22 14:22 ING Review of Systems Constitutional Constitutional: Reports system reviewed and no additional complaints, except as documented Cardiovascular Cardiovascular: Reports system reviewed and no additional complaints, except as documented Respiratory Respiratory: Reports system reviewed and no additional complaints, except as documented Gastrointestinal Gastrointestinal: Reports system reviewed and no additional complaints, except as documented Genitourinary Genitourinary: Reports system reviewed and no additional complaints, except as documented Integumentary/Breasts Skin/Breast: Reports system reviewed and no additional complaints, except as documented Hematologic/Lymphatic On Anticoagulants: No Patient History Medical History Elevated fasting glucose Umbilical hernia Acute bacterial sinusitis Excessive cerumen in left ear canal Weight loss counseling, encounter for Menorrhagia Healthy adult Surgical History History of third molar tooth extraction History of tonsillectomy Family History Mother No problems noted. Father No problems noted. Social History Smoking Status: Never smoker alcohol intake: current Smoking Status: Never smoker alcohol intake frequency: holidays/special occasions only Substance Use Type: does not use Exam Initial Vital Signs Initial Vital Signs: Vital Signs Temperature 96.9 F L 02/21/23 04:22 Pulse Rate 67 02/21/23 04:22 Respiratory Rate 20 02/21/23 04:22 Blood Pressure 142/72 H 02/21/23 04:22 Pulse Oximetry 99 02/21/23 04:22 Oxygen Delivery Method Room Air 02/21/23 04:22 Resp Effort & Inspection: normal respiratory effort Auscultation: clear to auscultation bilaterally Cardio Rate: regular rate Rhythm: regular rhythm GI Inspection: normal to inspection Palpation: soft, No firm, No guarding and tender (Mild tenderness right side abdomen) Skin General: no rashes or lesions noted Neuro General: patient alert, patient awake and moves all extremities Extrem General: capillary refill normal Course Orders Ordered: ED Orders 02/21/23 04:30 Urinalysis and Microscopic Stat Urine Culture Stat 02/21/23 04:40 CT kidney ureter bladder (KUB) Stat 02/21/23 04:42 Complete Blood Count AUTO DIFF Stat Comprehensive Metabolic Panel Stat Lipase Stat Test Serum,Qual Stat 02/21/23 06:13 [facility] limited Stat Discontinued Medications Hydrocodone Bitart/Acetaminophen (Hydrocodone/Acet 5/325 Tablet) 1 tab PO NOW ONE Stop: 02/21/23 06:09 Last Admin: 02/21/23 06:40 Dose: 1 tab Vital Signs Vital signs: Vital Signs - 8 hr 02/21/23 04:22 Temperature 96.9 F L Pulse Rate 67 Respiratory Rate 20 Blood Pressure 142/72 H Pulse Oximetry 99 Oxygen Delivery Method Room Air Medical Decision Making Medical Records Medical records reviewed: Yes I reviewed the patient's medical records. Lab Data Lab results reviewed: Yes I reviewed the patient's lab results. 02/21/23 04:42 02/21/23 04:42 Labs: Lab Results 02/21/23 02/21/23 Range/Units 04:30 04:42 WBC 7.8 (4.5-11.0) X10^3/uL RBC 4.49 (4.0-5.2) X10^6/uL Hgb 10.3 L (12.0-16.0) g/dL Hct 32.0 L (36-46) % MCV 71.3 L (80-100) fL MCH 23.0 L (26-34) PG MCHC 32.3 (30-36) % RDW 17.8 H (11.6-14.8) % Plt Count 333 (150-400) X10^3/uL Neut % (Auto) 61.5 (50-75) % Lymph % (Auto) 26.6 (25-40) % [place] % (Auto) 8.2 (3-14) % Eos % (Auto) 3.0 (2-4) % Baso % (Auto) 0.7 (0-2) % Neut # (Auto) 4800 (4401-1166) /uL Lymph # (Auto) 2100 (8413-7913) /uL [place] # (Auto) 600 (0-900) /uL Eos # (Auto) 200 (0-450) /uL Baso # (Auto) 100 (0-100) /uL Sodium 136 L (137-145) mmol/L Potassium 3.9 (3.4-5.1) mmol/L Chloride 104 (98-107) mmol/L Carbon Dioxide 22 (22-32) mmol/L BUN 9 (7-17) mg/dL Creatinine 0.55 (0.52-1.04) mg/dL Estimated GFR > 60 (>60) mL/min BUN/Creatinine Ratio 16.4 (6-22) Glucose 95 (70-100) mg/dL Calcium 9.3 (8.4-10.2) mg/dL Total Bilirubin 0.2 (0.2-1.3) mg/dL AST 27 (14-36) IU/L ALT 38 H (<35) IU/L Alkaline Phosphatase 81 (38-126) U/L Total Protein 7.4 (6.3-8.2) g/dL Albumin 4.2 (3.5-5.0) g/dL Globulin 3.2 (1.7-4.1) g/dL Albumin/Globulin Ratio 1.3 (1.0-2.8) Lipase 119 (23-300) U/L Serum , Qual Negative (Negative) Urine Color Yellow Urine Appearance Clear Urine pH 6.0 (4.5-8.0) Ur Specific [place] 1.015 (1.000-1.035) Urine Protein Negative (Negative) Urine Glucose (UA) Negative (Negative) g/dL Urine Ketones Negative (NEGATIVE) Urine Occult Blood Trace-intact (Negative) Urine Nitrate Negative (Negative) Urine Bilirubin Negative (NEGATIVE) Urine Urobilinogen 0.2 (0.2) E.U./dL Ur Leukocyte Esterase 2+ H (NEGATIVE) Urine RBC 0-1/hpf (0-5/HPF) Urine WBC 1-5/hpf (0-5/HPF) Ur Squamous Epith Cells 1-5 /hpf D (0-5/HPF) Urine Bacteria Few (2-10) H (None) Ur Culture Indicated? Specimen cultured Urine Dip Bedside Urine Glucose Negative Bedside Urine Bilirubin - Negative Bedside Urine Ketone - Negative Urine Specific [place] 1.015 Bedside Urine Occult Blood +/- Bedside Urine pH 6.0 Bedside Urine Protein - Negative Bedside Urine Urobilinogen - Negative Bedside Urine Nitrite - Negative Bedside Urine Leukocytes ++ 125 Esterase Point of care testing: Urine Dip Bedside Urine Glucose Negative Bedside Urine Bilirubin - Negative Bedside Urine Ketone - Negative Urine Specific [place] 1.015 Bedside Urine Occult Blood +/- Bedside Urine pH 6.0 Bedside Urine Protein - Negative Bedside Urine Urobilinogen - Negative Bedside Urine Nitrite - Negative Bedside Urine Leukocytes ++ [address] scan - abdomen/pelvis: Radiologist's Impression: Hepatic steatosis No evidence of colitis diverticulitis bowel obstruction obstructive uropathy or acute appendicitis Increasing size of low attenuation right adrenal nodule versus renal lesion measuring up to 5 cm. 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 MDM Narrative Medical decision making narrative: Patient has blood in her urine but no indication of infection. Low suspicion for pyelo. She recently has had her gallbladder removed. Her labs are unremarkable. She has right lower quadrant abdominal pain. CT scan shows no acute pathology but she does have a 3-4 cm right-sided ovarian cyst. This was not seen on a CT scan earlier this year. She is also 4 days late for her menstrual cycle. test is negative. Pelvic ultrasound ordered for further characterization of this ovarian cyst and evaluate for torsion. I did discuss the incidental finding of the adrenal nodule noted on the CT scan today. Patient was informed that this was not the cause of her pain today but she does need to contact your primary doctor for further evaluation of this. Care turned over to day provider to follow-up on ultrasound and disposition. Discharge Plan Departure Clinical Impression: Adrenal nodule Activity Restrictions/Additional Instructions: It is important that you contact your primary doctor to discuss the incidental finding of the right-sided adrenal nodule. Radiology recommends a MRI with contrast to further evaluate this. Prescriptions: No Action nystatin 100,000 unit/gram cream 1 applic topical BID Qty: 15 2RF Rx Instructions: Apply small amount topically, mixed with triamcinolone, to affected area twice daily as needed. triamcinolone acetonide 0.1 % cream 1 applic topical BID Qty: 15 2RF Rx Instructions: Apply small amount topically, mixed with nystatin, to affected area twice daily as needed. Referrals: Agustín Low, [Primary Care Provider] -
--- NOTE | 2023-02-21 04:40 | DI.CT.S_ITS ---
PROCEDURE: CT KIDNEY URETER BLADDER (KUB) INDICATIONS: Right side flank/abdominal pain eval for stone TECHNIQUE: Axial sections were acquired from the lung bases to the pubic symphysis. Coronal and sagittal reformats were performed. For radiation dose reduction, the following was used: automated exposure control, adjustment of mA and/or kV according to patient size. COMPARISON: [facility], CT, CT ABDOMEN PELVIS W CON, 12/02/2022, 12:03. FINDINGS: Image quality: Excellent. Lung bases: Unremarkable. Heart: No significant findings. URINARY: Kidneys and ureters: No hydronephrosis or nephrolithiasis. No perinephric inflammation. No hydroureter or ureterolithiasis. Bladder: Normal wall thickness. No stones. ABDOMEN: Liver: Mild hepatomegaly and hepatic steatosis. Relative sparing in the gallbladder fossa. Gallbladder: Surgically absent. Biliary ducts: Nondilated. Pancreas: Normal. Spleen: Normal. Adrenal Glands: 4.8 cm lateral limb, and 2.2 cm medial limb right adrenal hypodensities. Left adrenal gland is normal. Stomach and Bowel: Stomach, small bowel loops, and colon are unremarkable. Normal appendix. Peritoneum: No abnormal intraperitoneal fluid. No free air. Ventral Wall: Possible recent repair of umbilical hernia. Abdominal Nodes: No enlarged retroperitoneal or mesenteric lymph nodes. Vessels: Aorta and inferior vena cava are normal in size. PELVIS: Pelvic Organs: Anteverted uterus. 3.8 cm cystic lesion in the right adnexa, presumably ovarian cyst. Left ovary has a normal contour. Pelvic Nodes: Unremarkable. Miscellaneous: No inguinal hernias are seen. Bones: Unremarkable. IMPRESSION: 1. No urinary calcifications or obstructive uropathy. 2. Right ovarian cyst. Presumably physiologic. Correlate with symptomatology. 3. Normal appendix. 4. Hepatomegaly and hepatic steatosis. 5. Stable medial limb right adrenal nodule, and slightly increased lateral limb adrenal nodule size compared to remote prior studies. 6. Final interpretation is concordant with preliminary report. Dictated by: Lennie Badillo M.D. on 02/21/2023 at 8:08 Approved by: Lennie Badillo M.D. on 02/21/2023 at 8:18
[2023-02-21 04:50] LABS: Appearance Urine UA CLEAR; Bilirubin Urine UA NEGATIVE (NEGATIVE); Color Urine UA YELLOW; Glucose Urine UA NEGATIVE (Negative); Ketones Urine UA NEGATIVE (NEGATIVE); Leukocyte Esterase Urine UA 2+ (NEGATIVE); Nitrite Urine UA NEGATIVE (Negative); Occult Blood Urine UA TRACE-INTACT (Negative); Protein Urine UA NEGATIVE (Negative); Specific Gravity Urine UA 1.015 (1.000-1.035); Urobilinogen Urine UA 0.2 E.U./dL (0.2)
[2023-02-21 04:50] LABS: Add Manual Diff / Slide Review NO; Basophils Absolute Auto 100 /uL (0-100); Basophils Percent Auto 0.7 % (0-2); Eosinophils Absolute Auto 200 /uL (0-450); Hemoglobin 10.3 g/dL (12.0-16.0); Lymphocytes Absolute Auto 2100 /uL (1100-4500); Lymphocytes Percent Auto 26.6 % (25-40); Mean Corpuscular HGB Conc 32.3 % (30-36); Mean Corpuscular Volume 71.3 fL (80-100); Monocytes Absolute Auto 600 /uL (0-900); Monocytes Percent Auto 8.2 % (3-14); Neutrophils Absolute Auto 4800 /uL (1500-7000); Neutrophils Percent Auto 61.5 % (50-75); Platelet Count 333 X10^3/uL (150-400); Red Blood Cell Count 4.49 X10^6/uL (4.0-5.2); Red Cell Distribution Width 17.8 % (11.6-14.8); White Blood Cell Count 7.8 X10^3/uL (4.5-11.0)
[2023-02-21 05:05] LABS: Alanine Aminotransferase 38 IU/L (<35); Albumin 4.2 g/dL (3.5-5.0); Albumin Globulin Ratio 1.3 (1.0-2.8); Alkaline Phosphatase 81 U/L (38-126); Aspartate Aminotransferase 27 IU/L (14-36); BUN Creatinine Ratio 16.4 (6-22); Bilirubin Total 0.2 mg/dL (0.2-1.3); Blood Urea Nitrogen 9 mg/dL (7-17); Calcium 9.3 mg/dL (8.4-10.2); Carbon Dioxide 22 mmol/L (22-32); Chloride 104 mmol/L (98-107); Estimated Glomerular Filt Rate > 60 mL/min (>60); Globulin 3.2 g/dL (1.7-4.1); Glucose 95 mg/dL (70-100); HEMOLYSIS < 15 (0-50); Lipase 119 U/L (23-300); Potassium 3.9 mmol/L (3.4-5.1); Sodium 136 mmol/L (137-145); Total Protein 7.4 g/dL (6.3-8.2)
[2023-02-21 05:06] LABS: Bacteria Urine Few (2-10); RBC Urine 0-1/HPF (0-5/HPF); WBC Urine 1-5/HPF (0-5/HPF)
[2023-02-21 05:07] LABS: Culture Indicated Urine Specimen Cultured; Squamous Epithelial Cell Urine 1-5 /HPF (0-5/HPF)
[2023-02-21 05:47] LABS: Pregnancy Test Serum,Qual Negative (Negative)
--- NOTE | 2023-02-21 06:13 | DI.US.S_ITS ---
PROCEDURE: US PELVIC COMPLETE INDICATIONS: RIGHT PELVIC PAIN TECHNIQUE: Real-time scanning was performed of the pelvic organs, with image documentation. Additional endovaginal scanning was necessary due to incomplete visualization of the adnexal and endometrial structures by transabdominal scanning. COMPARISON: , CT, CT KIDNEY URETER BLADDER (KUB), 02/21/2023, 6:30. FINDINGS: Uterus: Uterus is anteverted and at the upper limits of normal in size at 11.4 x 5.4 x 7.1 cm. The myometrium is homogeneous. The endometrium measures 16.7 mm combined thickness. Fundal endometrial contour is ill-defined. Normal vascular flow. No endometrial fluid. Nabothian cysts are seen in the cervix. Ovaries: The left ovary was not seen. The right ovary measures 4.2 x 4.4 x 4.8 cm, with a calculated ovarian volume of 46.2 cc. There is a dominant follicle measuring 3.0 x 2.5 x 3.3 cm. There is a 2nd follicle or paraovarian cyst measuring 2.4 cm. Both demonstrate anechoic echotexture and no paraovarian fluid. No adnexal masses are seen. Other: No pathologic free abdominal or pelvic fluid. IMPRESSION: 1. 2 simple appearing right ovarian cysts/follicles. No evidence of hemorrhage or recent rupture. 2. Upper limits of normal size uterus with borderline thickening of the endometrium. This is most likely physiologic. Correlate with menstrual status. We strive to produce accurate, complete, and clear reports of imaging services. To assist us in improving patient care, this report was composed using standard report templates and voice recognition software. Therefore, it may contain abnormal punctuation, insertions and/or omissions. Occasional wrong-word or sound-alike substitutions may occur. Though we review the report and make efforts to correct it, we do recommend that the report be read carefully in proper context to recognize any text inaccuracies. Dictated by: Lennie Badillo M.D. on 02/21/2023 at 8:53 Approved by: Lennie Badillo M.D. on 02/21/2023 at 8:58
[2023-02-21] MEDS: HYDROCODONE/ACET 5/325 TABLET 1 TAB PO (06:40)
== END 2023-02-21 10:14 | disposition home or self-care (01) ==
PROVIDERS: Emergency Medicine; Emergency Provider Emergency Medicine; PCP Family Medicine
DX: E27.8 Other specified disorders of adrenal gland (principal); N83.201 Unspecified ovarian cyst, right side; N39.0 Urinary tract infection, site not specified
CPT/HCPCS: 36415; 51798; 74176; 76830; 76856; 80053; 81001; 81003; 83690; 84703; 85025; 87086; 93976; 99284

== ENCOUNTER → 2023-03-06 10:45 | Outpatient (CLI) | payer OTHER, SELFPAY ==
--- NOTE | 2023-03-06 10:47 | DI.MRI.S_ITS ---
PROCEDURE: MR ABDOMEN WO CON INDICATIONS: Adrenal Nodule TECHNIQUE: Coronal HASTE, axial 2-D FLASH in- and [id number] with subtractions from the hepatic dome to the iliac crests. COMPARISON: [facility], CT, ABDOMEN W&WO CONTRAST, 06/03/2017, 15:32. [facility], CT, CT KIDNEY URETER BLADDER (KUB), 02/21/2023, 6:30. FINDINGS: Image quality: Excellent. Adrenal glands: Right adrenal gland homogeneous T2 hyperintense cyst at the lateral limb measuring 4.6 x 4.4 cm, (8/62), previously 4.1 x 4 cm in 2018. Right adrenal gland nodule at the medial limb measuring 2.1 x 1.2 cm, (8/59), previously 2.2 x 1.8 cm in 2018. This nodule demonstrates signal dropout consistent with microscopic fat. No left adrenal nodule. Other solid organs: Liver is normal in overall size. Hepatic steatosis. Gallbladder is absent. Biliary system is non dilated. Pancreas is normal in morphology. No pancreatic ductal dilatation. Spleen is normal in size. Both kidneys are normal in size, without hydronephrosis. Nodes and vessels: No retroperitoneal or mesenteric adenopathy by size criteria. Aorta and inferior vena cava are normal in size. Bowel and peritoneum: Unenhanced bowel loops are normal in caliber. No free fluid. Lung bases: No basal pleural effusions. Heart size is normal. Bones and soft tissues: Fat containing umbilical hernia. Bone marrow is of normal overall signal. IMPRESSION: 1. Right adrenal gland homogeneous T2 hyperintense cyst measuring 4.6 cm is mildly increased in size compared to 2018. Benign imaging appearance. 2. Right adrenal gland medial nodule measuring 2.1 cm is consistent with a benign adenoma. 3. Hepatic steatosis. Post cholecystectomy Dictated by: Lucas Goodson M.D. on 03/08/2023 at 8:47 Approved by: Lucas Goodson M.D. on 03/08/2023 at 8:57
== END ==
PROVIDERS: PCP Family Medicine; Referring Provider Family Medicine; Visit Provider Family Medicine
DX: E27.8 Other specified disorders of adrenal gland (principal); K76.0 Fatty (change of) liver, not elsewhere classified; Z90.49 Acquired absence of other specified parts of digestive tract
CPT/HCPCS: 74181

== ENCOUNTER 2023-12-07 11:10 | Emergency (ER) | payer OTHER, SELFPAY ==
[2023-12-07] VITALS (8 sets, daily range): BP systolic 131–174; BP diastolic 62–81; PULSE 58–67; RESP 10–22; TEMP 36.8; O2SAT 95–100; BMI 41.0
--- NOTE | 2023-12-07 11:19 | DI.RAD.S_ITS ---
PROCEDURE: XR CHEST 1V INDICATIONS: Shortness of breath TECHNIQUE: One view of the chest was acquired. COMPARISON: [facility], CR, XR CHEST 1V, 07/14/2022, 9:22. [facility], CR, XR CHEST 1V, 04/11/2020, 14:47. FINDINGS: Surgical changes and devices: None. Lungs and pleura: Low lung volumes. No dense consolidation or pleural effusion Mediastinum: Heart size is normal and unchanged Bones and chest wall: Unremarkable IMPRESSION: No acute radiographic abnormality on this limited single view portable study. Low lung volumes. Dictated by: Ki Troncoso M.D. on 12/07/2023 at 12:51 Approved by: Ki Troncoso M.D. on 12/07/2023 at 12:52
--- NOTE | 2023-12-07 11:19 | EKG_ITS ---
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
[2023-12-07 11:40] LABS: Add Manual Diff / Slide Review NO; Basophils Absolute Auto 0 /uL (0-100); Basophils Percent Auto 0.6 % (0-2); Eosinophils Absolute Auto 100 /uL (0-450); Eosinophils Percent Auto 1.9 % (2-4); Hematocrit 32.6 % (36-46); Hemoglobin 10.5 g/dL (12.0-16.0); Lymphocytes Absolute Auto 1500 /uL (1100-4500); Lymphocytes Percent Auto 23.7 % (25-40); Mean Corpuscular HGB Conc 32.3 % (30-36); Mean Corpuscular Hemoglobin 22.5 PG (26-34); Mean Corpuscular Volume 69.9 fL (80-100); Monocytes Absolute Auto 500 /uL (0-900); Monocytes Percent Auto 7.8 % (3-14); Neutrophils Absolute Auto 4100 /uL (1500-7000); Platelet Count 423 X10^3/uL (150-400); Red Blood Cell Count 4.67 X10^6/uL (4.0-5.2); Red Cell Distribution Width 20.1 % (11.6-14.8); White Blood Cell Count 6.2 X10^3/uL (4.5-11.0)
[2023-12-07 11:48] LABS: Alanine Aminotransferase 105 IU/L (<35); Albumin 4.4 g/dL (3.5-5.0); Albumin Globulin Ratio 1.2 (1.0-2.8); Alkaline Phosphatase 103 U/L (38-126); Aspartate Aminotransferase 75 IU/L (14-36); Bilirubin Total 0.5 mg/dL (0.2-1.3); Blood Urea Nitrogen 12 mg/dL (7-17); Calcium 9.2 mg/dL (8.4-10.2); Carbon Dioxide 19 mmol/L (22-32); Chloride 106 mmol/L (98-107); Estimated Glomerular Filt Rate > 60 mL/min (>60); Globulin 3.7 g/dL (1.7-4.1); Glucose 102 mg/dL (70-100); HEMOLYSIS < 15 (0-50); Potassium 4.1 mmol/L (3.4-5.1); Sodium 135 mmol/L (137-145); Total Protein 8.1 g/dL (6.3-8.2)
[2023-12-07 11:54] LABS: Anisocytosis 1+
[2023-12-07 11:59] LABS: NT-proBNP (BNP-Adult 18+) 41 pg/mL (<125); Troponin I < 0.012 ng/mL (0.01-0.034)
[2023-12-07 12:19] LABS: Influenza A - CEPHEID Flu A NEGATIVE (NEGATIVE); Influenza B - CEPHEID Flu B NEGATIVE (NEGATIVE); Respiratory Syncytial Virus Negative (Negative)
[2023-12-07 12:21] LABS: COVID-19 CEPHEID 4-PLEX PCR POSITIVE (Negative)
--- NOTE | 2023-12-07 12:46 | ED_ITS ---
HPI - SOB/Dyspnea General Chief Complaint: Shortness of Breath/Dyspnea Stated Complaint: sob, chest pain, lightheaded Time Seen by Provider: 12/07/23 12:28 Source: patient Mode of arrival: Ambulatory Limitations: no limitations History of Present Illness HPI Narrative: 43-year-old female without history of chronic lung disease, has history of COVID vaccination 2 years ago primary series, no recent boosters, now with 6 days' duration of cough, some chest pain with coughing, some shortness of breath. No leg pain or swelling symptoms. No injury trauma new activities. No history of blood clots to legs or lungs. She has not tried any inhalers or any other other treatments. She denies abdominal pain, nausea vomiting, diarrhea. No painful urination or frequency of urination. Denies flank pain. Denies posterior chest pain. Related Data Previous Rx's Medication Instructions Recorded nystatin 100,000 unit/gram topical 1 applic topical BID #15 grams 08/29/21 cream triamcinolone acetonide 0.1 % 1 applic topical BID #15 grams 09/22/23 topical cream albuterol sulfate 90 mcg/actuation 2 puff inhalation Q6H PRN 12/07/23 aerosol inhaler shortness of breath or wheezing #6.7 grams Allergies Allergy/AdvReac Type Severity Reaction Status Date / Time Penicillins [PENICILLINS] Allergy Severe DIZZY/VOMIT Verified 05/19/23 11:18 ING levofloxacin [LEVOFLOXACIN] AdvReac Mild DIZZY/VOMIT Verified 05/19/23 11:18 ING Review of Systems Review of Systems Narrative: See HPI Patient History Medical History (Updated 12/07/23 @ 12:59 by Bandar Lazcano MD) Excessive cerumen in right ear canal Skin change Elevated fasting glucose Umbilical hernia Acute bacterial sinusitis Excessive cerumen in left ear canal Weight loss counseling, encounter for Menorrhagia Healthy adult Surgical History History of third molar tooth extraction History of tonsillectomy Family History Mother No problems noted. Father No problems noted. Social History Smoking Status: Never smoker alcohol intake: current Smoking Status: Never smoker alcohol intake frequency: holidays/special occasions only Substance Use Type: does not use Exam Narrative Exam Narrative: GENERAL: Well-developed patient, in mild distress. HEAD: Atraumatic. Normocephalic. EYES: Pupils equal round and reactive. Extraocular motions intact. No scleral icterus. No injection or drainage. ENT: Nose without bleeding, purulent drainage. Throat without erythema, tonsillar hypertrophy or exudate. Airway patent. NECK: Trachea midline. Non tender CARDIOVASCULAR: Regular rate and rhythm without murmurs, gallops, or rubs. RESPIRATORY: Clear to auscultation. Breath sounds equal bilaterally. No wheezes, rales, or rhonchi. GASTROINTESTINAL: Abdomen soft, non-tender, nondistended. EXTREMITIES: No edema or joint tenderness. BACK: Nontender without deformity or crepitance. No flank tenderness. NEURO: AOx3. SKIN: No rash or erythema of visible areas Initial Vital Signs Initial Vital Signs: Vital Signs Temperature 98.2 F 12/07/23 11:15 Pulse Rate 67 12/07/23 11:15 Respiratory Rate 20 12/07/23 11:15 Blood Pressure 174/81 H 12/07/23 11:15 Pulse Oximetry 98 12/07/23 11:15 Oxygen Delivery Method Room Air 12/07/23 11:15 Course Orders Ordered: ED Orders 12/07/23 11:19 XR chest 1V Stat EKG-12 Lead Stat Measure peak expiratory flow ONCE RT Consult Eval and Treat NOW 12/07/23 11:27 Complete Blood Count AUTO DIFF Stat Comprehensive Metabolic Panel Stat Covid-19 + FLU A/B + RSV - PCR Stat Lactate (Lactic Acid) Stat NT-proBNP (BNP-Adult 18+) Stat Prothrombin Time INR Stat Troponin I Stat Vital Signs Vital signs: Vital Signs - 8 hr 12/07/23 11:15 12/07/23 11:15 12/07/23 11:15 Temperature 98.2 F Pulse Rate 67 64 Respiratory Rate 20 Blood Pressure 174/81 H 174/81 H Pulse Oximetry 98 98 Oxygen Delivery Method Room Air 12/07/23 11:30 12/07/23 11:31 12/07/23 11:31 Temperature Pulse Rate 60 65 Respiratory Rate 22 20 Blood Pressure 152/72 H Pulse Oximetry 98 100 Oxygen Delivery Method 12/07/23 12:00 12/07/23 12:01 12/07/23 12:01 Temperature Pulse Rate 61 63 Respiratory Rate 19 18 Blood Pressure 131/62 Pulse Oximetry 95 95 Oxygen Delivery Method MDM - SOB/Dyspnea Lab Data Attestation: I reviewed the patient's lab results. 12/07/23 11:27 12/07/23 11:27 Labs: Lab Results 12/07/23 Range/Units 11:27 WBC 6.2 (4.5-11.0) X10^3/uL RBC 4.67 (4.0-5.2) X10^6/uL Hgb 10.5 L (12.0-16.0) g/dL Hct 32.6 L (36-46) % MCV 69.9 L (80-100) fL MCH 22.5 L (26-34) PG MCHC 32.3 (30-36) % RDW 20.1 H (11.6-14.8) % Plt Count 423 H (150-400) X10^3/uL Neut % (Auto) 66.0 (50-75) % Lymph % (Auto) 23.7 L (25-40) % [place] % (Auto) 7.8 (3-14) % Eos % (Auto) 1.9 L (2-4) % Baso % (Auto) 0.6 (0-2) % Neut # (Auto) 4100 (6665-0510) /uL Lymph # (Auto) 1500 (0481-2535) /uL [place] # (Auto) 500 (0-900) /uL Eos # (Auto) 100 (0-450) /uL Baso # (Auto) 0 (0-100) /uL RBC Morphology Not Reportable Anisocytosis 1+ H PT 11.0 (9.4-12.5) SECONDS INR 1.0 (0.9-1.3) Sodium 135 L (137-145) mmol/L Potassium 4.1 (3.4-5.1) mmol/L Chloride 106 (98-107) mmol/L Carbon Dioxide 19 L (22-32) mmol/L BUN 12 (7-17) mg/dL Creatinine 0.60 (0.52-1.04) mg/dL Estimated GFR > 60 (>60) mL/min BUN/Creatinine Ratio 20.0 (6-22) Glucose 102 H (70-100) mg/dL Lactate 1.0 (0.7-2.1) mmol/L Calcium 9.2 (8.4-10.2) mg/dL Total Bilirubin 0.5 (0.2-1.3) mg/dL AST 75 H (14-36) IU/L ALT 105 H (<35) IU/L Alkaline Phosphatase 103 (38-126) U/L Troponin I < 0.012 (0.01-0.034) ng/mL NT-Pro-B Natriuret Pep 41 (<125) pg/mL Total Protein 8.1 (6.3-8.2) g/dL Albumin 4.4 (3.5-5.0) g/dL Globulin 3.7 (1.7-4.1) g/dL Albumin/Globulin Ratio 1.2 (1.0-2.8) SARS-CoV-2 (PCR) Positive H (Negative) Influenza A (RT-PCR) Flu a negative (NEGATIVE) Influenza B (RT-PCR) Flu b negative (NEGATIVE) RSV (PCR) Negative (Negative) ECG Data Attestation: I personally reviewed and interpreted this ECG as follows: Interpretation: Normal sinus rhythm with rate of 61, no obvious ST segment elevation or depression changes. T-wave flattening lead 3, upright in leads 2 and F. LA 160, QRS 88, QTC 432. [facility] Narrative Medical decision making narrative: Recent 6 days duration cough, some chest discomfort with cough, some shortness of breath. No oxygen requirement. No chest wall discomfort. Lungs clear, no respiratory distress. Prior COVID primary vaccination 2 years ago, no recent boosters. Chest x-ray negative. EKG without obvious ischemic changes, troponin negative. COVID swab positive, flu swab negative. Her symptoms however been more than 5 days, now 6-7 days if symptoms, no Paxlovid indicated at this time. She seems well compensated at present. Consider trial of inhaler to use, sent to her pharmacy. Advised to use home pulse oximeter to check her oxygenation. Discharge Plan Departure Patient Disposition: Home Clinical Impression: COVID-19 Activity Restrictions/Additional Instructions: Six days duration of cough with chest pain with cough, some shortness of breath. COVID swab was positive today. Flu swab negative. Lungs clear, no respiratory distress. Chest x-ray negative. EKG did not show any evidence for heart attack, nor did blood testing. Consider use of an inhaler for shortness of breath symptoms, prescription sent to your pharmacy. Consider use of [id number]-nacneff pulse oximeter to check your oxygen levels, recheck if your levels seemed to be less than 90%. Recheck earlier with your regular doctor if not improving in the next couple of days. Return earlier to this/nearest emergency department for any change worsening symptoms or any concerns prior Prescriptions: New albuterol sulfate 90 mcg/actuation HFA aerosol inhaler 2 puff inhalation Q6H PRN (Reason: shortness of breath or wheezing) Qty: 6.7 0RF No Action nystatin 100,000 unit/gram cream 1 applic topical BID Qty: 15 2RF Rx Instructions: Apply small amount topically, mixed with triamcinolone, to affected area twice daily as needed. triamcinolone acetonide 0.1 % cream 1 applic topical BID Qty: 15 2RF Rx Instructions: Apply small amount topically, mixed with nystatin, to affected area twice daily as needed. Referrals: Agustín Low DO [Primary Care Provider] - Stand Alone Forms: Patient Portal/API
== END 2023-12-07 13:12 | disposition home or self-care (01) ==
PROVIDERS: Emergency Provider Emergency Medicine; PCP Family Medicine
DX: U07.1 COVID-19 (principal); R07.9 Chest pain, unspecified
CPT/HCPCS: 0241U; 36415; 71045; 80053; 83605; 83880; 84484; 85025; 85610; 93005; 99283; 99284

== ENCOUNTER → 2024-02-04 16:20 | Outpatient (CLI) | payer OTHER, SELFPAY ==
[2024-02-04 17:52] LABS: Follicle Stimulating Hormone 1.59 mIU/mL; Luteinizing Hormone 0.902 mIU/mL
[2024-02-04 18:08] LABS: Estradiol, Total 198.5 pg/mL
== END ==
PROVIDERS: PCP Family Medicine; Referring Provider Obstetrics & Gynecology; Visit Provider Obstetrics & Gynecology
DX: N93.8 Other specified abnormal uterine and vaginal bleeding (principal); N95.1 Menopausal and female climacteric states
CPT/HCPCS: 36415; 82670; 83001; 83002

== ENCOUNTER → 2024-02-08 16:29 | Outpatient (CLI) | payer OTHER, SELFPAY ==
--- NOTE | 2024-02-08 16:30 | DI.US.S_ITS ---
PROCEDURE: US PELVIC COMPLETE INDICATIONS: Irregular, heavy vaginal bleeding TECHNIQUE: Real-time scanning was performed of the pelvic organs, with image documentation. Additional endovaginal scanning was necessary due to incomplete visualization of the adnexal and endometrial structures by transabdominal scanning. COMPARISON: [facility], , US PELVIC COMPLETE, 02/21/2023, 7:31. FINDINGS: Uterus: Uterus is anteverted and normal in size at 11.8 x 5.5 x 6.8 cm. The myometrium is homogeneous. The endometrium measures 11.1 mm combined thickness. No fibroids Ovaries: The right ovary is not seen, possibly secondary to overlying bowel gas. A possible left ovary is seen only using transabdominal imaging. The structure is cystic, measuring 3.8 x 3.9 x 3.8 cm, possibly representing an ovarian cyst. Other: No pathologic free abdominal or pelvic fluid. IMPRESSION: 1. Endometrial stripe measures 11.1 mm, within normal limits. 2. No fibroids noted. 3. Possible left ovarian cyst measuring 3.9 cm in diameter. We strive to produce accurate, complete, and clear reports of imaging services. To assist us in improving patient care, this report was composed using standard report templates and voice recognition software. Therefore, it may contain abnormal punctuation, insertions and/or omissions. Occasional wrong-word or sound-alike substitutions may occur. Though we review the report and make efforts to correct it, we do recommend that the report be read carefully in proper context to recognize any text inaccuracies. Dictated by: Parish Erazo M.D. on 02/08/2024 at 17:31 Approved by: Parish Erazo M.D. on 02/08/2024 at 17:34
== END ==
PROVIDERS: PCP Family Medicine; Referring Provider Obstetrics & Gynecology; Visit Provider Obstetrics & Gynecology
DX: N93.8 Other specified abnormal uterine and vaginal bleeding (principal)
CPT/HCPCS: 76856

== ENCOUNTER → 2024-02-18 16:13 | Outpatient (CLI) | payer OTHER, SELFPAY ==
--- NOTE | 2024-02-18 16:14 | DI.MG.S_ITS ---
BILATERAL DIGITAL SCREENING MAMMOGRAM 3D/2D WITH CAD: 02/18/2024 CLINICAL: Routine screening. Comparison is made to exams dated: 10/10/2022 mammogram, 08/20/2021 mammogram, and 10/07/2018 mammogram - [facility]. There are scattered areas of fibroglandular density (category b / 25%-50% glandular tissue). Current study was also evaluated with a Computer Aided Detection (CAD) system. No significant masses, calcifications, or other findings are seen in either breast. There has been no significant interval change. IMPRESSION: NEGATIVE There is no mammographic evidence of malignancy. A 1 year screening mammogram is recommended. Based on the Tyrer Cuzick model (a risk assessment model) the patient's lifetime risk is 5.5% and her 10 year risk is 0.9%. According to the ACR, ACS, and NCCN guidelines, an annual breast MRI exam along with mammogram is recommended if the patient's lifetime risk is 20% or greater. This exam was interpreted at Station ID: [id number]. NOTE: For mammograms, a report in lay terms will be sent to the patient. Approximately 15% of breast malignancies will not be visualized mammographically. In the management of a palpable breast mass, a negative mammogram must not discourage biopsy of a clinically suspicious lesion. Electronically Signed By: Eric beltran/orivlle:02/21/2024 06:36:43 letter sent: Normal Exam ACR BI-RADS Category 1: Negative
== END ==
PROVIDERS: PCP Family Medicine; Referring Provider Family Medicine; Visit Provider Family Medicine
DX: Z12.31 Encounter for screening mammogram for malignant neoplasm of breast (principal)
CPT/HCPCS: 77063; 77067

== ENCOUNTER → 2024-09-05 16:45 | Outpatient (CLI) | payer OTHER, SELFPAY | PROVIDERS: PCP Family Medicine; Visit Provider Family Medicine | DX: R39.9 Unspecified symptoms and signs involving the genitourinary system (principal) | CPT/HCPCS: 87086 ==

== ENCOUNTER 2024-11-06 11:46 | Observation (INO) | payer OTHER, SELFPAY ==
[2024-11-06] VITALS (11 sets, daily range): BP systolic 122–213; BP diastolic 61–97; PULSE 57–66; RESP 17–20; TEMP 36.3–36.9; O2SAT 94–100; BMI 43.4
--- NOTE | 2024-11-06 11:58 | EKG_ITS ---
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
--- NOTE | 2024-11-06 12:01 | DI.CT.S_ITS ---
PROCEDURE: CT ANGIO HEAD AND NECK INDICATIONS: sudden right sided numbness difficulty with words TECHNIQUE: After the administration of intravenous contrast, 1 mm thick sections acquired from the aortic arch through the [place]. 3-dimensional nowxlsi-lndcbqzfm-bsrmkktsvb (MIP) and/or volume rendering reformats were acquired of the central intracranial vasculature and neck separately. For radiation dose reduction, the following was used: automated exposure control, adjustment of mA and/or kV according to patient size. COMPARISON: [facility], CT, CT STROKE, 11/06/2024, 12:07. FINDINGS: Image quality: Diagnostic. Cerebral CT Angiogram: Internal carotid arteries: No acute findings. Intracranial ICA are patent with no significant stenosis. No occlusion. No aneurysm. Anterior cerebral arteries: Unremarkable. No significant stenosis. No occlusion. No aneurysm. Middle cerebral arteries: Unremarkable. No significant stenosis. No occlusion. No aneurysm. Posterior cerebral arteries: Unremarkable. No significant stenosis. No occlusion. No aneurysm. Basilar artery: Unremarkable. No significant stenosis. No occlusion. No aneurysm. Vertebral arteries: Unremarkable as visualized. Dural venous sinuses: Unremarkable given phase of enhancement. Other: Arterial phase appearance of the brain parenchyma is unremarkable. Neck CT Angiogram: Internal carotid arteries: Unremarkable. No significant stenosis. No dissection or occlusion. Common carotid arteries: Unremarkable. No significant stenosis. No dissection or occlusion. External carotid arteries: Unremarkable. No occlusion. Vertebral arteries: Unremarkable. No significant stenosis. No dissection or occlusion. Aortic Arch and Mediastinum: Partially visualized aortic arch unremarkable without evidence of aneurysm. Origins of the great vessels unremarkable. Other: Arterial phase soft tissues of the neck and chest are unremarkable. IMPRESSION: 1. No significant intracranial arterial abnormality is seen. 2. No significant abnormality is seen within the arteries of the neck. Any quantitative measurements of stenosis were performed using NASCET criteria. Dictated by: Efe Lopez M.D. on 11/06/2024 at 12:48 Approved by: Efe Lopez M.D. on 11/06/2024 at 12:50
--- NOTE | 2024-11-06 12:01 | DI.CT.S_ITS ---
PROCEDURE: CT STROKE INDICATIONS: Positive BE-FAST, Stroke symptoms TECHNIQUE: Noncontrast 4.5 mm thick angled axial sections acquired from the foramen magnum to the vertex, with coronal reformats. For radiation dose reduction, the following was used: automated exposure control, adjustment of mA and/or kV according to patient size. COMPARISON: None. FINDINGS: Image quality: Diagnostic. CSF spaces: Basal cisterns are patent. No extra-axial fluid collections. Ventricles are normal in size and shape. Brain: No midline shift. No intracranial mass effect or hemorrhage. [place]- white matter interface is normal. Skull and face: Calvarium and visualized facial bones are intact, without suspicious lesions. Sinuses: Visualized sinuses and mastoids are clear. IMPRESSION: No acute intracranial pathology. Comment: Findings were discussed with Dr. Dunaway on 11/06/2024 at 1218 hours This study fulfills neurological imaging criteria for inclusion or exclusion of acute stroke therapies based on available published neurological imaging guidelines. Dictated by: Parish Erazo M.D. on 11/06/2024 at 12:17 Approved by: Parish Erazo M.D. on 11/06/2024 at 12:19
--- NOTE | 2024-11-06 12:01 | DI.RAD.S_ITS ---
PROCEDURE: XR CHEST 1V INDICATIONS: Possible stroke TECHNIQUE: One view of the chest was acquired. COMPARISON: [facility], CR, XR CHEST 1V, 12/07/2023, 11:43. FINDINGS: Surgical changes and devices: None. Lungs and pleura: There is pulmonary vascular congestion. No definite focal infiltrate. No pleural effusions or pneumothorax. Mediastinum: Mediastinal contours appear normal. Heart size is enlarged. Bones and chest wall: No suspicious bony lesions. Overlying soft tissues appear unremarkable. IMPRESSION: Cardiomegaly and mild congestion. No definite focal infiltrate. No pleural effusion or pneumothorax. Dictated by: Efe Lopez M.D. on 11/06/2024 at 12:48 Approved by: Efe Lopez M.D. on 11/06/2024 at 12:48
[2024-11-06 12:15] LABS: Add Manual Diff / Slide Review NO; Hematocrit 37.8 % (36-46); Hemoglobin 12.4 g/dL (12.0-16.0); Lymphocytes Absolute Auto 2400 /uL (1100-4500); Mean Corpuscular HGB Conc 32.7 % (30-36); Mean Corpuscular Hemoglobin 24.5 PG (26-34); Mean Corpuscular Volume 74.7 fL (80-100); Platelet Count 385 X10^3/uL (150-400)
[2024-11-06 12:18] LABS: INR 1.0 (0.9-1.3); Prothrombin Time 11.3 SECONDS (9.4-12.5)
[2024-11-06 12:21] LABS: PTT Partial Thromboplastin Tim 31 SECONDS (25.1-36.5)
[2024-11-06 12:22] LABS: Alanine Aminotransferase 85 IU/L (<35); Albumin 5.2 g/dL (3.5-5.0); Albumin Globulin Ratio 1.2 (1.0-2.8); Alkaline Phosphatase 106 U/L (38-126); Blood Urea Nitrogen 12 mg/dL (7-17); Calcium 9.7 mg/dL (8.4-10.2); Carbon Dioxide 23 mmol/L (22-32); Chloride 104 mmol/L (98-107); Creatine Kinase 179 U/L (30-135); Estimated Glomerular Filt Rate > 60 mL/min (>60); Globulin 4.2 g/dL (1.7-4.1); Glucose 103 mg/dL (70-99); HEMOLYSIS 54 (0-50); Potassium 4.5 mmol/L (3.4-5.1); Sodium 138 mmol/L (137-145); Total Protein 9.4 g/dL (6.3-8.2)
[2024-11-06 12:34] LABS: Troponin I < 0.012 ng/mL (0.01-0.034)
--- NOTE | 2024-11-06 12:38 | ED.NEUROSD ---
HPI - Neuro Symptoms/Deficit General Chief Complaint: Neuro Symptoms/Deficit Stated Complaint: Hard time getting things out feels off Time Seen by Provider: 11/06/24 12:19 Source: patient Mode of arrival: Ambulatory History of Present Illness HPI Narrative: 44-year-old female who has been more emotional in the past week and then today at 11:00 a.m. she felt this sudden numbness and tingling on her right side of her face arm and leg. Patient denies any motor deficits. Currently her NIH stroke scale is 0. She still feels some subjective tingling. On Anticoagulants: No Related Data Previous Rx's ?Medication ?Instructions ?Recorded triamcinolone acetonide 0.1 % 1 applic topical BID #15 grams 09/22/23 topical cream albuterol sulfate 90 mcg/actuation 2 puff PO Q6H PRN for wheezing 03/21/24 aerosol inhaler #8.5 grams nystatin 100,000 unit/gram topical 1 applic topical BID #15 grams 03/22/24 cream nitrofurantoin macrocrystal 100 mg 100 mg PO BID #14 caps 09/05/24 capsule Allergies Allergy/AdvReac Type Severity Reaction Status Date / Time Penicillins (PENICILLINS) Allergy Severe DIZZY/VOMIT Verified 11/06/24 11:55 ING levofloxacin (LEVOFLOXACIN) AdvReac Mild DIZZY/VOMIT Verified 11/06/24 11:55 ING Review of Systems Review of Systems ROS Unobtainable: All systems reviewed & are unremarkable except as noted in HPI and below Hematologic/Lymphatic On Anticoagulants: No Patient History Medical History (Updated 11/06/24 @ 14:08 by Andi Dunaway MD) BMI greater than 40 Excessive cerumen in right ear canal Skin change Elevated fasting glucose Umbilical hernia Acute bacterial sinusitis Excessive cerumen in left ear canal Weight loss counseling, encounter for Menorrhagia Healthy adult Surgical History History of third molar tooth extraction History of tonsillectomy Family History Mother No problems noted. Father No problems noted. Social History Smoking Status: Never smoker alcohol intake: current Smoking Status: Never smoker alcohol intake frequency: holidays/special occasions only Exam Narrative Exam Narrative: General: Patient appears to be in no acute distress, acting appropriately Head: normocephalic, atraumatic, HEENT: Pupils equal round reactive, eyes tracking well, neck supple, no JVD Heart: regular rate and rhythm, no murmurs, rubs, or gallops heard Lungs: clear to auscultation, no adventitious sounds Abdomen: soft , nontender, nondistended, positive bowel sounds Neurological: no focal neurological signs, moving all extremities well, alert and oriented x3, Psych: good judgment ,good insight, mood is normal. Initial Vital Signs Initial Vital Signs: Vital Signs Temperature 98.3 F 11/06/24 11:54 Pulse Rate 65 11/06/24 11:54 Respiratory Rate 20 11/06/24 11:54 Blood Pressure 213/97 H 11/06/24 11:54 Pulse Oximetry 98 11/06/24 11:54 Oxygen Delivery Method Room Air 11/06/24 11:54 Course Course Course Narrative: We will do stroke workup for the patient just in case but my suspicion of stroke is low. CT brain did not show any acute changes. Orders Ordered: ED Orders 11/06/24 12:[address] angio head and neck Stat XR chest 1V Stat EKG-12 Lead Stat 11/06/24 12:04 Complete Blood Count AUTO DIFF Stat Comprehensive Metabolic Panel Stat PTT Partial Thromboplastin Steve Stat Prothrombin Time INR Stat Troponin & CK Cardiac Panel Stat 11/06/24 12:24 Urine Drug Screen, Rapid Stat 11/06/24 13:45 MR head/brain wo con Stat Ondansetron HCl (Ondansetron 4 Mg/2 Ml Inj) 4 mg IV NOW PRN PRN Reason: Nausea And Vomiting Ondansetron HCl (Ondansetron 4 Mg Odt) 4 mg PO NOW PRN PRN Reason: Nausea And Vomiting Discontinued Medications Aspirin (Aspirin Ec 325 Mg Tablet) 325 mg PO NOW ONE Stop: 11/06/24 13:44 Clopidogrel Bisulfate (Clopidogrel 75 Mg Tablet) 300 mg PO NOW ONE Stop: 11/06/24 13:44 Reevaluation(s) Reevaluation #1: Upon re-evaluation, only right side of her face is now numb. She still not at baseline. According to her partner, she does still search for words at times. Time: 13:58 Consultations Consultation #1: Dr. Garcia was consulted over the [facility] who will look over imaging and call back. Her suspicion for stroke is low as well as well as for thrombolytics Time: 12:30 Consultation #2: Dr Garcia called back after looking at the imaging and decided him on giving a full-dose aspirin as well as a full-dose Plavix right now. She will then convert to a regular dose of Plavix and aspirin tomorrow and stay on that dual anti-platelet therapy for 21 days. After the dual platelet therapy, she will stay on a baby aspirin. Consultation #3: And Dr. Guerrero was consulted the hospitalist on-call today who agreed to admit the patient under observation for a stroke protocol. Time: 14:05 Vital Signs Vital signs: Vital Signs - 8 hr 11/06/24 11:54 11/06/24 12:44 11/06/24 13:00 Temperature 98.3 F Pulse Rate 65 57 L 57 L Respiratory Rate 20 18 18 Blood Pressure 213/97 H 144/67 H Pulse Oximetry 98 98 95 Oxygen Delivery Method Room Air 11/06/24 13:01 11/06/24 13:01 11/06/24 13:30 Temperature Pulse Rate 59 L 58 L Respiratory Rate 17 18 Blood Pressure 127/61 Pulse Oximetry 94 94 Oxygen Delivery Method 11/06/24 13:31 11/06/24 13:31 Temperature Pulse Rate 66 Respiratory Rate 18 Blood Pressure 170/78 H Pulse Oximetry 94 Oxygen Delivery Method Room Air MDM - Neuro Symptoms/Deficit Differential Diagnosis Differential diagnosis: Likely peripheral neuropathy, cerebrovascular accident and transient cerebral ischemia Lab Data 11/06/24 12:04 11/06/24 12:04 Labs: Lab Results 11/06/24 11/06/24 11/06/24 Range/Units 12:01 12:04 12:24 WBC 6.3 (4.5-11.0) X10^3/uL RBC 5.05 (4.0-5.2) X10^6/uL Hgb 12.4 (12.0-16.0) g/dL Hct 37.8 (36-46) % MCV 74.7 L (80-100) fL MCH 24.5 L (26-34) PG MCHC 32.7 (30-36) % RDW 17.3 H (11.6-14.8) % Plt Count 385 (150-400) X10^3/uL Neut % (Auto) 49.4 L (50-75) % Lymph % (Auto) 37.3 (25-40) % [place] % (Auto) 10.0 (3-14) % Eos % (Auto) 2.4 (2-4) % Baso % (Auto) 0.9 (0-2) % Neut # (Auto) 3100 (1112-6288) /uL Lymph # (Auto) 2400 (2184-3304) /uL [place] # (Auto) 600 (0-900) /uL Eos # (Auto) 200 (0-450) /uL Baso # (Auto) 100 (0-100) /uL PT 11.3 (9.4-12.5) SECONDS INR 1.0 (0.9-1.3) APTT 31 (25.1-36.5) SECONDS Sodium 138 (137-145) mmol/L Potassium 4.5 (3.4-5.1) mmol/L Chloride 104 (98-107) mmol/L Carbon Dioxide 23 (22-32) mmol/L BUN 12 (7-17) mg/dL Creatinine 0.68 (0.52-1.04) mg/dL Estimated GFR > 60 (>60) mL/min BUN/Creatinine Ratio 17.6 (6-22) Glucose 103 H (70-99) mg/dL POC Whole Bld Glucose 73 (70-99) mg/dL Calcium 9.7 (8.4-10.2) mg/dL Total Bilirubin 0.6 (0.2-1.3) mg/dL AST 70 H (14-36) IU/L ALT 85 H (<35) IU/L Alkaline Phosphatase 106 (38-126) U/L Total Creatine Kinase 179 H (30-135) U/L Troponin I < 0.012 (0.01-0.034) ng/mL Total Protein 9.4 H (6.3-8.2) g/dL Albumin 5.2 H (3.5-5.0) g/dL Globulin 4.2 H (1.7-4.1) g/dL Albumin/Globulin Ratio 1.2 (1.0-2.8) U Opiates 300ng/mL cut Negative (Negative) Ur Oxycodone Screen Negative (Negative) Urine Methadone Screen Negative (Negative) Ur Barbiturates Screen Negative (Negative) U Tricyclic Antidepress Negative (Negative) Ur Phencyclidine Scrn Negative (Negative) Ur Amphetamines Screen Negative (Negative) U Methamphetamines Scrn Negative (Negative) Ur MDMA Scrn (Ecstasy) Negative (Negative) U Benzodiazepines Scrn Negative (Negative) Urine Cocaine Screen Negative (Negative) U Marijuana (THC) Screen Negative (Negative) Urine pH Normal (Normal) Urine Specific [place] Normal (Normal) Ur Creatinine Normal (Normal) Urine Dip Bedside Urine Glucose Negative Bedside Urine Bilirubin - Negative Bedside Urine Ketone - Negative Urine Specific [place] 1.010 Bedside Urine Occult Blood - Negative Bedside Urine pH 6.5 Bedside Urine Protein - Negative Bedside Urine Urobilinogen - Negative Bedside Urine Nitrite - Negative Bedside Urine Leukocytes - Negative Esterase Imaging Data CT scan - head: Radiologist's Impression: No acute intracranial pathology CTA - brain/neck: Radiologist's Impression: 1. No significant intracranial arterial abnormality is seen. 2. No significant abnormality is seen within the arteries of the neck. ECG Data Interpretation: [place] shows a normal axis, normal sinus rhythm. Rate is 72 beats per minute no MI interval changes no STT wave changes. Previous EKG showed a normal sinus rhythm. MDM Narrative Medical decision making narrative: After discussion with stroke neurologist, it was determined to give the patient a full dose of aspirin as well as a full dose of Plavix. Patient will then go on dual antiplatelet therapy for 21 days on regular dose. Afterwards, patient will go on a baby aspirin until she can follow up with a neurologist. Discharge Plan Departure Patient Disposition: Admitted as Observation Clinical Impression: Numbness and tingling Admit Date/Time: 11/06/24 13:54
[2024-11-06 12:45] LABS: UR Morphine/Opiate cutoff 300 Negative (Negative); Ur Specific Gravity Normal (Normal); Urine MDMA Negative (Negative); Urine Methamphetamines Negative (Negative); Urine Tetrahydrocannabinol Negative (Negative); Urine Tricyclic Antidepressant Negative (Negative)
--- NOTE | 2024-11-06 13:45 | DI.MRI.S_ITS ---
PROCEDURE: MR HEAD/BRAIN WO CON INDICATIONS: right sided numbness and tingling TECHNIQUE: Noncontrast axial T1 spin echo, axial T2 fast spin echo, sagittal and axial FLAIR, coronal T2 fast spin echo, axial gradient echo, axial diffusion and ADC through the brain. COMPARISON: [facility], CT, CT STROKE, 11/06/2024, 12:07. [facility], CT, CT ANGIO HEAD AND NECK, 11/06/2024, 12:07. FINDINGS: Image quality: Excellent. CSF Spaces: Basal cisterns are patent. No extra-axial fluid collections. Ventricles are normal in size and shape. Brain: No intracranial masses or hemorrhage. [place]/white matter interface is normal. Brainstem appears normal. Diffusion-weighted images demonstrate no acute infarct. No chronic ischemic insults. Normal intravascular flow voids are present. Skull and face: Calvarium has normal marrow signal. Orbits appear normal. Sinuses: Sinuses and mastoids are clear. IMPRESSION: Unremarkable brain MRI. No acute intracranial process. Dictated by: Parish Erazo M.D. on 11/06/2024 at 16:33 Approved by: Parish Erazo M.D. on 11/06/2024 at 16:34
[2024-11-06] MEDS: ASPIRIN EC 325 MG TABLET PO (13:53)
[2024-11-06] MEDS: CLOPIDOGREL 75 MG TABLET 300 MG PO (13:53)
[2024-11-06] MEDS: ACETAMINOPHEN 325 MG TABLET 650 MG PO ×2 (15:48→23:58)
--- NOTE | 2024-11-06 16:27 | PM.HP.1 ---
History of Present Illness History of Present Illness Date Patient Seen: 11/06/24 Time Patient Seen: 15:00 Chief complaint: Hard time getting things out feels off Narrative: The patient was a 44-year-old female who developed right face, arm, and leg numbness today. She also had some difficulty with slurred speech and possibly finding words. There was no weakness noted of the arm or leg or facial droop. She has no risk factors for a stroke. She denies hypertension, hyperlipidemia, tobacco use, or family history. She was not taking any prescription medications. She was never had a clear neurologic episode in the past. She was evaluated in the ED with a an NIH score of 0 and telehealth recommended dual antiplatelet loading and 21 days of therapy then monotherapy. CT brain and CTA were unremarkable. [facility] Medical History BMI greater than 40 Excessive cerumen in right ear canal Skin change Elevated fasting glucose Umbilical hernia Acute bacterial sinusitis Excessive cerumen in left ear canal Weight loss counseling, encounter for Menorrhagia Healthy adult Surgical History History of third molar tooth extraction History of tonsillectomy Family History Mother No problems noted. Father No problems noted. Social History household members: spouse Smoking Status: Never smoker alcohol intake: current Meds Home Medications and Allergies Home Medications ?Medication ?Instructions ?Recorded ?Confirmed ?Type magnesium 250 mg tablet 250 mg PO DAILY 11/06/24 11/06/24 History Allergies Allergy/AdvReac Type Severity Reaction Status Date / Time Penicillins (PENICILLINS) Allergy Unknown DIZZY/VOMIT Verified 11/06/24 15:09 ING levofloxacin (LEVOFLOXACIN) AdvReac Intermediate DIZZY/VOMIT Verified 11/06/24 15:09 ING Exam Vital Signs (past 8 hours): - 11/06/24 11:54 11/06/24 12:44 11/06/24 13:00 Temperature 98.3 F Pulse Rate 65 57 L 57 L Respiratory Rate 20 18 18 Blood Pressure 213/97 H 144/67 H Pulse Oximetry 98 98 95 Oxygen Delivery Method Room Air 11/06/24 13:01 11/06/24 13:01 11/06/24 13:30 Temperature Pulse Rate 59 L 58 L Respiratory Rate 17 18 Blood Pressure 127/61 Pulse Oximetry 94 94 Oxygen Delivery Method 11/06/24 13:31 11/06/24 13:31 11/06/24 14:00 Temperature Pulse Rate 66 57 L Respiratory Rate 18 19 Blood Pressure 170/78 H Pulse Oximetry 94 98 Oxygen Delivery Method Room Air 11/06/24 14:00 11/06/24 14:30 11/06/24 14:30 Temperature Pulse Rate 57 L Respiratory Rate 19 Blood Pressure 185/85 H 181/85 H Pulse Oximetry 100 Oxygen Delivery Method Oxygen Delivery Method Room Air Narrative Exam Narrative: All else reviewed and otherwise unremarkable except as noted in the history and physical. Objective ECG Impression: Intervals [place] Rate: 72 P: 23 ID: [id number] QRS: 4 QRSD: 90 T: 26 QT: 406 QTc: 444 Interpretive Statements Normal sinus rhythm Imaging Multiple studies:: Radiologist's impression: Brain CT: No acute intracranial pathology. Head and neck CTA: 1. No significant intracranial arterial abnormality is seen. 2. No significant abnormality is seen within the arteries of the neck. Chest x-ray: Cardiomegaly and mild congestion. No definite focal infiltrate. No pleural effusion or pneumothorax. Labs 11/06/24 12:04 11/06/24 12:04 Labs: Laboratory Results - last 24 hr 11/06/24 11/06/24 11/06/24 12:01 12:04 12:24 WBC 6.3 RBC 5.05 Hgb 12.4 Hct 37.8 MCV 74.7 L MCH 24.5 L MCHC 32.7 RDW 17.3 H Plt Count 385 Neut % (Auto) 49.4 L Lymph % (Auto) 37.3 [place] % (Auto) 10.0 Eos % (Auto) 2.4 Baso % (Auto) 0.9 Neut # (Auto) 3100 Lymph # (Auto) 2400 [place] # (Auto) 600 Eos # (Auto) 200 Baso # (Auto) 100 PT 11.3 INR 1.0 APTT 31 Sodium 138 Potassium 4.5 Chloride 104 Carbon Dioxide 23 BUN 12 Creatinine 0.68 Estimated GFR > 60 BUN/Creatinine Ratio 17.6 Glucose 103 H POC Whole Bld Glucose 73 Calcium 9.7 Total Bilirubin 0.6 AST 70 H ALT 85 H Alkaline Phosphatase 106 Total Creatine Kinase 179 H Troponin I < 0.012 Total Protein 9.4 H Albumin 5.2 H Globulin 4.2 H Albumin/Globulin Ratio 1.2 U Opiates 300ng/mL cut Negative Ur Oxycodone Screen Negative Urine Methadone Screen Negative Ur Barbiturates Screen Negative U Tricyclic Antidepress Negative Ur Phencyclidine Scrn Negative Ur Amphetamines Screen Negative U Methamphetamines Scrn Negative Ur MDMA Scrn (Ecstasy) Negative U Benzodiazepines Scrn Negative Urine Cocaine Screen Negative U Marijuana (THC) Screen Negative Urine pH Normal Urine Specific [place] Normal Ur Creatinine Normal Assessment & Plan Assessment & Plan narrative: 1. TIA versus stroke with transient speech difficulty and right face, arm, and leg numbness. Improved. 2. Morbid obesity with BMI of 43, stable. Plan: -MRI brain -serial neurologic exams -echo to rule out PFO -PT/OT evaluations. Anticipate 1 night in the hospital, supports observation status. Full resuscitation, is proxy decision maker. They live in [place]. Time-Based Coding :: [TOTAL MINUTES] spent with patient and on the chart (including review of chart, obtaining history, exam, reviewing outside data, placing orders, documenting exam and treatment plan, and counseling patient) on [DATE]. Quality VTE Deep Vein Thrombosis/Pulmonary Embolism Present on Admission: No MIPS - Admit I confirm the patient?s Advance Care Plan is present, Code status is documented, Surrogate decision maker is in patient?s record [If Yes, STOP here]: Yes MIPS - Meds 'Current medications' to include all prescriptions, [id number] products, herbals, cannabis/cannabidiol products, and vitamin/mineral/dietary (nutritional) supplements. I have utilized all available resources to obtain, update, or review the patient?s current medications. [If Yes, STOP here]: Yes
--- NOTE | 2024-11-06 16:32 | DI.ECHO.S_ITS ---
[facility]+ [facility] : : [address] : : [place] : : [id number] : : Phone: [phone] Echocardiogram Report + + :Name: LJ JEFFERSON Study Date: 11/07/2024 Height: 60 in : :Hospital ReadingLocation: Weight: 222 lb : : Gender: Female BSA: 2.0 m2 : :: 1980 Age: 44 yrs BP: 120/75 mmHg: :Reason For Study: STROKE, RULE OUT PFO : :Ordering Physician: DHIRAJ, : :LILI Pepper Performed By: Elham Cortez : :Referring: LILI HEARN : + + Interpretation Summary The ejection fraction is estimated to be 55-60%. Doppler interrogation and injection of saline echo contrast shows no evidence for an interatrial shunt. There is no significant valvular heart disease. Procedure: A two-dimensional transthoracic echocardiogram with color flow and Doppler was performed. The study quality was technically adequate. Comparison is made with the echocardiogram of 05/19/2013. The patient was in sinus rhythm with heart rates between 57-74 bpm during the exam. Left Ventricle: The left ventricle is normal in size. The ejection fraction is estimated to be 55-60%. Left ventricular wall motion is normal. Normal diastolic function. Right Ventricle: The right ventricle is normal in size and function. Atria: The left atrial size is normal. Right atrial size is normal. Doppler interrogation and injection of saline echo contrast shows no evidence for an interatrial shunt. Mitral Valve: The mitral valve leaflets appear to open well. There is trace mitral regurgitation. Aortic Valve: The aortic valve is trileaflet. The aortic valve opens well. There is no aortic valve stenosis. No aortic regurgitation is present. Tricuspid Valve: The tricuspid valve leaflets are thin and pliable. There is mild tricuspid regurgitation. Pulmonary artery pressures cannot be estimated because of the lack of a measurable TR jet velocity but the IVC suggests a CVP of around 3 mmHg. Pulmonic Valve: The pulmonic valve leaflets are thin and pliable; valve motion is normal. There is mild pulmonic regurgitation. Great Vessels: The aortic root is normal size. The dimensions of the ascending aorta are normal. The IVC is of normal diameter and collapses greater than 50% with a sniff. This suggests a low right atrial pressure of 3 mm Hg. Pericardium/ Pleura There is a trace pericardial effusion that is circumferential. There is no pleural effusion. MMode/2D Measurements & Calculations LVIDd: 4.7 cm LVOT diam: 2.1 cm LVIDs: 2.9 cm Ao root diam: 2.9 cm FS: 38.6 % asc Aorta Diam: 3.0 cm EPSS: 1.3 cm Ao Arch Diam (Prox Trans): 2.6 cm IVSd: 0.80 cm LVPWd: 0.84 cm LV pride. diameter/BSA (cm/m^2): 2.4 LV sys. diameter/BSA (cm/m^2): 1.5 LA A2 area: 18.5 cm2 RA long axis: 4.6 cm LA A4 area: 16.9 cm2 RA area: 12.5 cm2 LA length (vol): 5.3 cm RA vol: 29.1 ml LA vol: 50.1 ml RA : 14.9 ml/m2 LA vol index: 25.7 ml/m2 IVC diam: 0.89 cm RVD1 (basal): 3.6 cm RVD2 (mid): 3.0 cm TAPSE: 2.1 cm Doppler Measurements & Calculations Ao V2 max: 111.3 cm/sec LVOT Max Margarito: 74.7 cm/sec Ao V2 mean: 80.2 cm/sec LV V1 max P.2 mmHg Ao max P.0 mmHg LV V1 VTI: 16.9 cm Ao mean P.8 mmHg MICHELLE(I,D): 2.3 cm2 Ao V2 VTI: 24.7 cm MICHELLE(V,D): 2.3 cm2 sev ratio: 0.68 MICHELLE indexed to BSA (cm^2/m^2): 1.2 MV E max margarito: 64.1 cm/sec PA V2 max: 101.0 cm/sec MV A max margarito: 56.1 cm/sec PA V2 mean: 68.7 cm/sec MV E/A: 1.1 PA mean P.2 mmHg Med Peak E' Margarito: 7.0 cm/sec PA pr(Accel): 25.9 mmHg E/E' med: 9.1 Lat Peak E' Margarito: 10.5 cm/sec E/E' lat: 6.1 E/e' average: 7.6 MV dec time: 0.19 sec SV([facility]): 57.5 ml Reading Physician:01:19 PM
--- NOTE | 2024-11-06 16:46 | ST.IPIE ---
Visit Care Team Role Provider Type ED* *Temp Referring Provider Physician Specialty: Emergency Medicine Address: Phone: Fax: Email: Agustín Low DO Primary Care Provider Physician Specialty: Family Practice Address: [address] [place] [address], [id number] Email: Andi Dunaway MD Emergency Provider Physician Specialty: Emergency Medicine Address: [address] [place] [address], [phone] Fax: Email: [email or web address] Edu Guerrero MD Admit Provider Physician Attending Provider Specialty: Internal Medicine Address: [address] [place] [address], [id number] Email: [email or web address] Past Medical History (Last Reviewed 11/06/24 @ 16:28 by Edu Guerrero MD) Acute bacterial sinusitis (Medical) BMI greater than 40 (Medical) Elevated fasting glucose (Medical) Excessive cerumen in left ear canal (Medical) Excessive cerumen in right ear canal (Medical) Healthy adult (Medical) Menorrhagia (Medical) Skin change (Medical) Umbilical hernia (Medical) Weight loss counseling, encounter for (Medical) ST IP Initial Evaluation Report NURSING AIDE Clinical Swallow Evaluation Start: 11/06/24 16:33 Freq: Status: Active Protocol: Document 11/06/24 16:33 MM (Rec: 11/06/24 16:45 MM Desktop) Clinical Swallow Evaluation Session Time Visit Start Time 16:15 Visit Stop Time 16:30 Total Visit Minutes 15 Visit Information Visit Number initial evaluation Referral Referring Provider Dr. Guerrero Reason for Referral stroke workup Setting Assessment Location Acute Care Visit Type Note Type Initial evaluation Patient Information Identification Type Name,Date of History Per ER physician documentation 11/06/2024: 44-year-old female who has been more emotional in the past week and then today at 11:00 a.m. she felt this sudden numbness and tingling on her right side of her face arm and leg. Patient denies any motor deficits. Currently her NIH stroke scale is 0. She still feels some subjective tingling. CT head: No acute intracranial pathology. CTA brain/neck: No significant intracranial arterial abnormality is seen. No significant abnormality is seen within the arteries of the neck. WBC WNL. Pt admitted and ST consulted as part of stroke workup. Subjective Pt awake and alert, reclined in bed upon ST arrival. RN Observations cleared ST to see pt, pt agreeable to ST evaluation. ST assisted pt in sitting upright in bed for ST evaluation. Pt was cooperative, engaged, and pleasant throughout ST evaluation. Pt denied hx of dysphagia and reported baseline diet is regular solids and thin liquids. Pt breathing comfortably on room air. Informally, pt's receptive and expressive language was WFL as evidenced by pt following commands throughout CNE, OME, and PO trials as well as engaging in conversation without evidence of dysarthria or anomia. Reported by Patient/Caregiver Comment Denied hx of dysphagia. Current Diet Regular (IDDSI 7) Baseline Feeding Independent for feeding Method The IDDSI Framework Protocol: IDDSI.1 Objective Assessment Mental Status Alert,Responsive,Cooperative Oral Integrity WFL Lip Function Within normal limits Tongue Function Within normal limits Jaw Function Within normal limits Hard/Soft Palate Within normal limits Function Respiratory Within normal limits Sufficiency Comment Oral mechanism exam revealed adequate dentition, oral health, and cranial nerves grossly intact bilaterally. Vocal quality appropriate for age/sex and at baseline per pt. No baseline cough observed prior to PO trials. Food and Liquid Trials Liquids Trialed Thin (IDDSI 0) Solid Trials Pureed (IDDSI 4),Soft & Bite-sized (IDDSI 6),Regular ( IDDSI 7) Oral Impairment Within normal limits Oral Phase Comments Pt observed across trials of thin liquids (3 oz via straw), puree (tsp apple sauce x3), soft/bite sized ( diced peaches x3), and regular (nahid cracker x1). Pt exhibited adequate bolus retrieval from spoon and straw , oral containment, bolus manipulation, and oral clearance across PO trials. Pharyngeal Within normal limits Impairment Pharyngeal Phase No overt signs/symptoms of aspiration noted. No globus Comments sensation reported. Fatigue/Endurance Endurance WNL The IDDSI Framework Protocol: IDDSI.1 Findings Swallowing Function Within normal limits Swallowing Function Functional oropharyngeal swallow. Appears to be at Comments swallowing baseline. Impact on Safety and No limitations Functioning Recommendations Instrumental No Assessment Swallowing Treatment No Recommended Solids Regular (IDDSI 7) Recommended Liquids Thin (IDDSI 0) Other Pt is felt to be at low risk for development of Recommendations aspiration pneumonia given WBC WNL, CNE WNL, pulmonary stability on room air, ambulatory status, independence for feeding/oral care, and intact cognitive-linguistic skills. Recommend continuation of baseline diet, regular solids and thin liquids with medications as tolerated/preferred by pt. No further skilled ST services warranted at this time as pt appears to be at baseline for speech, language, and swallowing. ST explained results/recommendations to pt who verbalized understanding and agreement. Please re-consult ST with any change in status. Medication As Tolerated Recommendations Discharge Home Recommendations Education Patient/Caregiver Described results of evaluation,Patient expressed Education understanding of evaluation,Patient expressed agreement with goals & treatment plans
[2024-11-06 17:17] LABS: Cholesterol 237 mg/dL (140-199); HDL Cholesterol 43 mg/dL (40-60); Triglycerides 263 mg/dL (35-150)
[2024-11-06 17:19] LABS: Hemoglobin A1C% w Est Avg Glu 5.5 % (4.0-6.0)
[2024-11-06 17:49] LABS: Thyroid Stimulating Hormone 3.45 uIU/mL (0.47-4.68)
[2024-11-06] MEDS: HEPARIN 5,000 UNIT/ML VIAL 5000 UNIT SUBCUT (20:45)
[2024-11-06] MEDS: ATORVASTATIN 20 MG TABLET 80 MG PO (20:45)
[2024-11-07 03:00] VITALS: BP 120/75; PULSE 60; RESP 20; TEMP 36.2; O2SAT 99
[2024-11-07 08:00] VITALS: BP 129/84; PULSE 60; RESP 18; TEMP 35.9; O2SAT 97
[2024-11-07] MEDS: CLOPIDOGREL 75 MG TABLET PO (08:52)
[2024-11-07] MEDS: ASPIRIN EC 81 MG TABLET PO (08:52)
[2024-11-07] MEDS: MAGNESIUM OXIDE 400 MG TABLET PO (08:52)
[2024-11-07] MEDS: HEPARIN 5,000 UNIT/ML VIAL 5000 UNIT SUBCUT (08:53)
--- NOTE | 2024-11-07 09:06 | PM.PN.1 ---
Subjective Subjective Date Patient Seen: 11/07/24 Exam Vital Signs (past 8 hours): - 11/07/24 03:00 11/07/24 08:00 Temperature 97.2 F L 96.7 F L Pulse Rate 60 60 Respiratory Rate 20 18 Blood Pressure 120/75 129/84 Pulse Oximetry 99 97 Oxygen Flow Rate 0 Oxygen Delivery Method Room Air Oxygen Flow Rate 0 Objective Labs 11/06/24 12:04 11/06/24 12:04 Labs: Laboratory Results - last 24 hr 11/06/24 11/06/24 11/06/24 12:01 12:04 12:24 WBC 6.3 RBC 5.05 Hgb 12.4 Hct 37.8 MCV 74.7 L MCH 24.5 L MCHC 32.7 RDW 17.3 H Plt Count 385 Neut % (Auto) 49.4 L Lymph % (Auto) 37.3 [place] % (Auto) 10.0 Eos % (Auto) 2.4 Baso % (Auto) 0.9 Neut # (Auto) 3100 Lymph # (Auto) 2400 [place] # (Auto) 600 Eos # (Auto) 200 Baso # (Auto) 100 PT 11.3 INR 1.0 APTT 31 Sodium 138 Potassium 4.5 Chloride 104 Carbon Dioxide 23 BUN 12 Creatinine 0.68 Estimated GFR > 60 BUN/Creatinine Ratio 17.6 Glucose 103 H POC Whole Bld Glucose 73 Hemoglobin A1c 5.5 Calcium 9.7 Total Bilirubin 0.6 AST 70 H ALT 85 H Alkaline Phosphatase 106 Total Creatine Kinase 179 H Troponin I < 0.012 Total Protein 9.4 H Albumin 5.2 H Globulin 4.2 H Albumin/Globulin Ratio 1.2 Triglycerides 263 H Cholesterol 237 H LDL Cholesterol, Calc 141 H HDL Cholesterol 43 TSH 3.45 U Opiates 300ng/mL cut Negative Ur Oxycodone Screen Negative Urine Methadone Screen Negative Ur Barbiturates Screen Negative U Tricyclic Antidepress Negative Ur Phencyclidine Scrn Negative Ur Amphetamines Screen Negative U Methamphetamines Scrn Negative Ur MDMA Scrn (Ecstasy) Negative U Benzodiazepines Scrn Negative Urine Cocaine Screen Negative U Marijuana (THC) Screen Negative Urine pH Normal Urine Specific [place] Normal Ur Creatinine Normal PFSH Medical History BMI greater than 40 Excessive cerumen in right ear canal Skin change Elevated fasting glucose Umbilical hernia Acute bacterial sinusitis Excessive cerumen in left ear canal Weight loss counseling, encounter for Menorrhagia Healthy adult Surgical History History of third molar tooth extraction History of tonsillectomy Family History Mother No problems noted. Father No problems noted. Social History household members: spouse Smoking Status: Never smoker alcohol intake: current Assessment & Plan Assessment & Plan narrative: 1. TIA versus stroke with transient speech difficulty and right face, arm, and leg numbness. Improved. 2. Morbid obesity with BMI of 43, stable. Plan: -MRI brain -serial neurologic exams -echo to rule out PFO -PT/OT evaluations. Anticipate 1 night in the hospital, supports observation status. Full resuscitation, is proxy decision maker. They live in [place]. Time-Based Coding :: [TOTAL MINUTES] spent with patient and on the chart (including review of chart, obtaining history, exam, reviewing outside data, placing orders, documenting exam and treatment plan, and counseling patient) on [DATE]. Quality VTE Deep Vein Thrombosis/Pulmonary Embolism Present on Admission: No
--- NOTE | 2024-11-07 09:45 | OT.IP.EVAL ---
Past Medical History (Last Reviewed 11/06/24 @ 16:28 by Edu Guerrero MD) Acute bacterial sinusitis BMI greater than 40 Elevated fasting glucose Excessive cerumen in left ear canal Excessive cerumen in right ear canal Healthy adult Menorrhagia Skin change Umbilical hernia Weight loss counseling, encounter for Surgical History (Last Reviewed 11/06/24 @ 16:28 by Edu Guerrero MD) History of third molar tooth extraction History of tonsillectomy Occupational Therapy Inpatient Evaluation/Re-Eval M1 PT/OT-IP Prior Functional Status Start: 11/07/24 10:16 Freq: NEEDED Status: Active Protocol: Document 11/07/24 10:16 [facility] (Rec: 11/07/24 10:37 [facility] Desktop) Medical Review Prior Functional Status Communication I Mobility and Gait I Activities of Daily I. Pt works form home. Living and IADL's Social History Household Members spouse Living Arrangements House Number of Floors ( One Floor Floors) Number of Stairs To Pt has 2 steps with no rails. Enter/Railing? Home Environment Standard Height Toilet,Tub/Shower Home Equipment Hand Held Shower M2 OT-IP Current Condition Start: 11/07/24 10:16 Freq: Status: Active Protocol: Document 11/07/24 10:16 [facility] (Rec: 11/07/24 10:37 [facility] Desktop) Occupational Therapy Current Condition Current Condition Evaluation Date 11/07/24 Treatment Diagnosis Migraine versus TIA/CVA Diagnosis Onset Date 11/06/24 M3 OT- IP Subjective and Pain Start: 11/07/24 10:16 Freq: Status: Active Protocol: Document 11/07/24 10:16 [facility] (Rec: 11/07/24 10:37 [facility] Desktop) OT- Subjective Occupational Therapy Visit Type Type Initial Evaluation Visit Start Time 09:00 Visit Stop Time 09:45 Occupational Therapy Visit Comments Patient Comments Pt agreed to get up. Patient/Caregiver TO go home. Goals OT Pain Assessment Pain When Pain Assessed At Rest Pain Present Pain Present Pain Reported Location headache Intensity 4 Scale Used Numeric (0 - 10) M4 OT- IP ADL's Start: 11/07/24 10:16 Freq: Status: Active Protocol: Document 11/07/24 10:16 [facility] (Rec: 11/07/24 10:37 [facility] Desktop) OT [id number] General Evaluation Self-Feeding Ability Independent OT ADL-Grooming General Evaluation Grooming Ability Independent Comments OT Grooming Comments While standing at the sink. OT ADL-Oral Care General Eval Oral Care Ability Independent OT ADL-Dressing General Eval Lower Body Dressing Independent Ability OT ADL-Toileting General Evaluation Toileting Ability Independent OT ADL-Bathing Comments OT Bathing Comments Not performed. Pt may benefit from a shower chair or at least her present. M5 OT- IP IADL's Start: 11/07/24 10:16 Freq: Status: Active Protocol: Document 11/07/24 10:16 [facility] (Rec: 11/07/24 10:37 [facility] Desktop) OT-Instrumental Activities of Daily Living Home Safety Awareness Home Safety Comments Pt having difficulty with STM and best for her to provide supervision. Medication Management Medication Suggested to provide supervision. Management Comments Money Management Money Management Pt having difficulty with number calculations and best Comments to have help. Meal Preparation Meal Preparation to provide supervision and assist as need. Comments Child Adolescent Psychiatrist Child Adolescent Psychiatrist to provide assist. Comments Driving Driving Concerns Identified Regarding Safety M6 OT- IP Functional Cognition Start: 11/07/24 10:16 Freq: Status: Active Protocol: Document 11/07/24 10:16 [facility] (Rec: 11/07/24 10:37 [facility] Desktop) Cognitive Factors Limiting Selfcare Function Cognitive Ability Level of Alertness Alert Patient Orientation Name,Age,Birthday,Month,Date,Year,Day of Week,Place, Situation Attention Span Capable of Focused Attention,Capable of Sustained Ability Attention Ability to Follow Able to Follow Multi-Step Commands Commands Memory Description Short Term Impaired,Working Impaired Executive Function Unable to Switch Focus,Unable to Remember Details Ability Cognitive Tests SLUMS Pt scored 21/30 which implies mild neurocognitive disorder. Pt not able to calculate 100-23, able to recall 2/5 objects after time passed, not able to states 4 digit number backwards, not able to draw the hour hand correctly after time passed, and able to answer 3/4 questions right after paragraph read. Cognitive Comments Cognitive Assessment Pt having difficulty with STM and especially math Comments calculations. Pt scored 117 seconds on [place] Making Part B which implies mod impairments for visual attention, speed of processing, task switching, mental flexibility and executive functioning. AT this time suggested pt not drive at this time. Pt states feels that she is having trouble to focus and comprehend at this time. Pt may benefit from outpt MID LEVEL PROVIDER pending progress. OT- Vision and Hearing OT- Vision Assessment Visual Acuity WFL Visual Attentiveness WFL Occular Pursuits WFL Visual Convergence WFL Visual Starks WFL Diplopia Absent M7 OT- IP Mobility and Balance Start: 11/07/24 10:16 Freq: Status: Active Protocol: Document 11/07/24 10:16 [facility] (Rec: 11/07/24 10:37 [facility] Desktop) OT- Bed Mobility Assessment Supine to Sit Supine to Sit Assist Independent Sit to Supine Sit to Supine Assist Independent OT-Transfer Assessment Sit to and From Stand Sit to and from Independent Stand Transfers Transfer Ability Independent Technique Transfer Destination Bed Devices Transfer Assistive None Devices Comments Mobility Comments Pt moves independently in the room without a device. OT- Balance Assessment Sitting Balance and Reactions Static Sitting Normal Balance Ability Dynamic Sitting Normal Balance Ability Standing Balance and Reactions Static Standing Normal Balance Ability Dynamic Standing Good Balance Ability M8 OT- IP Objective Assessments Start: 11/07/24 10:16 Freq: Status: Active Protocol: Document 11/07/24 10:16 [facility] (Rec: 11/07/24 10:37 [facility] Desktop) OT Gross Range of Motion Upper Extremity Range of Motion Assessment Within Functional Limits OT Strength Upper Extremity Strength Assessment Right Impaired Hand Registered Public Health Nurse Strength Hand Dominance Right Comments Strength Comments Right UE 4/5, LUE 5/5 OT- Coordination Assessment Upper Extremity Finger to Nose Test Within Functional Limits Finger Tapping Test Within Functional Limits Comments Coordination 9 hole peg test RUE 27sec ( below 10% for her age) and Comments LUE 24 sec. ( just a bit better than 25% for her age). OT-Muscle Tone Assessment Muscle Tone WNL Yes OT Sensation Assessment Location Right Arm Light Touch Intact/Normal Proprioception ( Intact/Normal Position) M9 OT- IP Assessment and Plan Start: 11/07/24 10:16 Freq: Status: Active Protocol: Document 11/07/24 10:16 [facility] (Rec: 11/07/24 10:37 [facility] Desktop) OT Summary Assessment and Plan Potential Rehabilitation Excellent Potential Analytic Complexity Low at Evaluation Summary OT Impairments Pain,Coordination,Functional Cognition,Bathing Assessment Summary Pt low complexity and main barriers are having decreased STM, ability to comprehend complex information, and trouble with math calculations at this time. Per MRI unremarkable scan. Pt scored 21/30 on the SLUMS which implies mild neurocognitive disorder. Pt admit may possibly be starting perimenopause which may also attribute to her brain fog. Pt given theraputty for hand strengthening. Per hospitalist to give pt meds for migraine and hopeful that pt's mental symptoms clear. TO continue to assess pt's mental abilities and right sided weakness while in the hosptial. Goals Bathing Goal Independent Days to Meet Goals 2 Treatment Plan OT Treatment Plan ADL Training,Functional Cognition Training,Functional Mobility,Patient/Family Education,Discharge Planning Other Treatment Reassess cognition. Recommendations and Next Treatment Focus Discharge Recommendations OT Discharge Home with Assistance Recommendations Transportation Needs Private Vehicle at Discharge
[2024-11-07] MEDS: SUMAtriptan 6 MG/0.5 ML VIAL SUBCUT (09:57)
--- NOTE | 2024-11-07 11:10 | PT.IIE ---
Surgical History (Last Reviewed 11/06/24 @ 16:28 by Edu Guerrero MD) History of third molar tooth extraction History of tonsillectomy Medical History (Last Reviewed 11/06/24 @ 16:28 by Edu Guerrero MD) Acute bacterial sinusitis BMI greater than 40 Elevated fasting glucose Excessive cerumen in left ear canal Excessive cerumen in right ear canal Healthy adult Menorrhagia Skin change Umbilical hernia Weight loss counseling, encounter for Physical Therapy Inpatient Evaluation/Re-Eval M1 PT/OT-IP Prior Functional Status Start: 11/07/24 10:16 Freq: NEEDED Status: Discharge Protocol: Document 11/07/24 10:16 [facility] (Rec: 11/07/24 10:37 [facility] Desktop) Medical Review Prior Functional Status Communication I Mobility and Gait I Activities of Daily I. Pt works form home. Living and IADL's Social History Household Members spouse Living Arrangements House Number of Floors ( One Floor Floors) Number of Stairs To Pt has 2 steps with no rails. Enter/Railing? Home Environment Standard Height Toilet,Tub/Shower Home Equipment Hand Held Shower M1 PT/OT-IP Prior Functional Status Start: 11/07/24 13:02 Freq: NEEDED Status: Active Protocol: Document 11/07/24 11:10 [facility] (Rec: 11/07/24 13:14 [facility] [id number]) Medical Review Prior Functional Status Medical History Yes Reviewed Communication able to make needs known Mobility and Gait pt stated that she was independent with all mobilities and ambulation without AD Social History Household Members spouse,children Living Arrangements House Number of Floors ( One Floor Floors) Number of Stairs To 2 platform steps without rails to enter the house Enter/Railing? 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 M2 PT-IP Current Condition Start: 11/07/24 13:02 Freq: NEEDED Status: Active Protocol: Document 11/07/24 11:10 [facility] (Rec: 11/07/24 13:14 AB [id number]) Physical Therapy Current Condition Current Condition Evaluation Date 11/07/24 Treatment Diagnosis r/o CVA/TIA; weakness Onset Date 11/06/24 M3 PT-IP Subjective Start: 11/07/24 13:02 Freq: NEEDED Status: Active Protocol: Document 11/07/24 11:10 [facility] (Rec: 11/07/24 13:14 AB [id number]) Subjective Physical Therapy Visit Type Type Initial Evaluation Visit Start Time 11:10 Visit Stop Time 11:25 Number of MILLED RUBBER TENDER Visits 0 Physical Therapy Visit Comments Patient Comments agreeable to do PT Therapy Pain Assessment Pain When Pain Assessed At Rest Location headache Scale Used minimal per pt; pain scale not stated; fogginess M4 PT-IP Mobility and Gait Start: 11/07/24 13:02 Freq: NEEDED Status: Active Protocol: Document 11/07/24 11:10 [facility] (Rec: 11/07/24 13:14 AB [id number]) PT-Bed Mobility Assessment Supine to Sit Supine to Sit Independent Sit to Supine Sit to Supine Independent PT-Transfer Assessment Sit to and From Stand Sit to and from Independent Stand Equipment Transfer Assistive None,Gait Belt Device Orthotic/Prosthetic No Devices or Brace: Comments Mobility Comments pt in bed. spouse in room. obtained PLOF and home setup. BP: 142/64 HI 64. supine to sit I. sit to stand I and ambulated in room SBA and agreed to ambulate in the hallway without AD SBA ~ 125. slight unsteady gait but without LOB. pt completed stairs SBA for ascending SBA to CGA with descending steps with unsteadiness but able to complete without LOB. pt ambulated to her room and wants to go back to bed. positioned pt in bed. call light and table placed next to pt. pt and spouse without any concerns. no further PT inteventions needed and pt agreed. nurse aware. Gait Assessment Gait Gait Assistance Standby Assistance Required: Distance (Feet) 125 Able to Maintain Yes Weight Bearing Status During Gait Assistive Devices Assistive Device None,Gait Belt Orthotic/Prosthetic No Devices or Brace: Stair Climbing Assessment Evaluation Level of Assist On Standby Assistance,Contact Guard Assistance Stairs Devices Stair Climbing None Assistive Devices Technique/Endurance Stair Climbing Ascend and Descend Direction Stair Climbing Step Over Step Technique Number of Steps 3 Climbed Query Text: Stair Climbing Set # 1 Repetitions (reps) PT-Balance Assessment Sitting Balance and Reactions Static Sitting Normal Balance Ability Dynamic Sitting Normal Balance Ability Standing Balance and Reactions Static Standing Good Balance Ability Dynamic Standing Good Balance Ability Device Used without AD M5 PT-IP Objective Assessments Start: 11/07/24 13:02 Freq: NEEDED Status: Active Protocol: Document 11/07/24 11:10 [facility] (Rec: 11/07/24 13:14 AB [id number]) Orientation Orientation/Cognition Level of Alertness Alert Orientation Name,Age,Place,Situation Language Function No Deficits Noted Ability Safety Awareness Understands Safety Issues Memory Description No Deficits Noted Gross Range of Motion Lower Extremity ROM Assessment Within Functional Limits Strength Lower Extremity Strength Hip L: 4+/5 R: 4/5 Knee 4+/5 Ankle 4+/5 Coordination Assessment Gross Coordination Gross Coordination WNL Sensation Assessment Sensation Gross Sensation WNL Muscle Tone Muscle Tone WNL Yes M6 PT-IP Treatment Start: 11/07/24 13:02 Freq: NEEDED Status: Active Protocol: Document 11/07/24 11:10 [facility] (Rec: 11/07/24 13:14 AB [id number]) Physical Therapy Treatment Education Education Provided Safety M7 PT-IP Assessment and Plan Start: 11/07/24 13:02 Freq: NEEDED Status: Active Protocol: Document 11/07/24 11:10 [facility] (Rec: 11/07/24 13:14 AB [id number]) PT Summary Assessment and Plan Summary Impairments Strength,Balance,Gait Assessment Summary pt is a 44 y/o F who is admitted to r/o CVA/TIA. pt imaging is unremarkable. pt requiring SBA for ambulation without AD and SBA to CGA for stair climbing for safety. pt plans to go home and will have her family to assist her if needed. No further PT interventions indicated. pt may go home when medically stable. Frequency of Treatment Frequency Of Discharge Treatment Treatment Plan Physical Therapy Discharge Planning Treatment Plan Recommendations To Nursing Amount of Assist Standby Assistance Needed Discharge Recommendations PT Discharge Home Recommendations Transportation Needs Private Vehicle at Discharge - PT assist 1
[2024-11-07 11:34] VITALS: BP 163/86; PULSE 64; RESP 18; TEMP 36.2; O2SAT 98
--- NOTE | 2024-11-07 11:40 | P.DS_ITS ---
History of Present Illness History of Present Illness Date Patient Seen: 11/07/24 Time Patient Seen: 11:40 Chief complaint: Hard time getting things out feels off Narrative: The patient was a 44-year-old female who developed right face, arm, and leg numbness today. She also had some difficulty with slurred speech and possibly finding words. There was no weakness noted of the arm or leg or facial droop. She has no risk factors for a stroke. She denies hypertension, hyperlipidemia, tobacco use, or family history. She was not taking any prescription medications. She was never had a clear neurologic episode in the past. She was evaluated in the ED with a an NIH score of 0 and telehealth recommended dual antiplatelet loading and 21 days of therapy then monotherapy. CT brain and CTA were unremarkable. Discharge Providers Provider Date of admission: 11/06/24 13:54 Discharge Date: 11/07/24 Primary care physician: Agustín Low, DO Consults: 11/06/24 15:33 Consult to Discharge Planning Routine Comment: Consult to Occupational Therapy Evaluate & Treat Comment: Physician Instructions: Evaluate and treat Consult to Physical Therapy Evaluate & Treat Comment: Physician Instructions: Evaluate and Treat Consult to Speech Therapy Evaluate & Treat Comment: Physician Instructions: Evaluate and treat Discharge provider: Andrew Knapp MD Summary Hospital Course Hospital Course: 1. TIA versus stroke versus Migraine Equivalent with transient speech difficulty and right face, arm, and leg numbness. -resolved with Imitrex 6 mg SQ 2. BMI of 43, stable. She has no family history of migraines, is not on any hormonal therapy and has no personal history of migraines. She presented with symptoms typical for TIA/stroke that varied somewhat over her hospital stay. The MRI of the brain, CTA and CT were all reassuring. The echocardiogram report is not back yet. Her final symptoms today included decreased mental functioning with a slums score of 21/30 and a subtle weakness on the right upper and lower extremities. After a dose of subcutaneous Imitrex she was able to move the right upper and lower extremities with the same strength detected on the left and her ability to to mental number exercises improved. Per this response to acute migraine treatment and her CVA negative workup this appears to be quite suspicious for migraine equivalent. That is unusual as a first-time presentation so she is strongly advised to follow up with her primary care doctor this week and request referral to Neurology for review of the workup and the conclusion. In the meantime she is given a prescription for Imitrex orally to take if her symptoms return. If that is not effective she should return to the ED. This was explained to the patient and to her . The presentation of mental confusion, inability to verbalize/engage along with the facial symptoms was quite understandably disturbing to her family. Status at Discharge Cognitive/behavioral status at discharge: at baseline, oriented Functional status at discharge: independent ambulation Overall status at discharge: patient is back to baseline Exam Vital Signs (past 8 hours): - 11/07/24 08:00 11/07/24 11:34 Temperature 96.7 F L 97.2 F L Pulse Rate 60 64 Respiratory Rate 18 18 Blood Pressure 129/84 163/86 H Pulse Oximetry 97 98 Oxygen Delivery Method Room Air Oxygen Flow Rate 0 Narrative Exam Narrative: Alert and oriented x3. No apparent distress. Heart is regular rate and rhythm without murmur. Lungs are clear to auscultation bilaterally. Extremities have no ankle edema. Neurologic exam. She was examined twice this morning. 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 After receiving a subcu injectiion of Imitrex the right side returned to 5/5 upper and lower. The left side is normal. There is no facial droop. The numbness has completely cleared on her face and limbs. She scored a 21/30 on the slums exam before the Imitrex but after the Imitrex was able to subtract serial sevens from 100 accurately. Objective Labs 11/06/24 12:04 11/06/24 12:04 Labs: Laboratory Results - last 24 hr 11/06/24 11/06/24 11/06/24 12:01 12:04 12:24 WBC 6.3 RBC 5.05 Hgb 12.4 Hct 37.8 MCV 74.7 L MCH 24.5 L MCHC 32.7 RDW 17.3 H Plt Count 385 Neut % (Auto) 49.4 L Lymph % (Auto) 37.3 [place] % (Auto) 10.0 Eos % (Auto) 2.4 Baso % (Auto) 0.9 Neut # (Auto) 3100 Lymph # (Auto) 2400 [place] # (Auto) 600 Eos # (Auto) 200 Baso # (Auto) 100 PT 11.3 INR 1.0 APTT 31 Sodium 138 Potassium 4.5 Chloride 104 Carbon Dioxide 23 BUN 12 Creatinine 0.68 Estimated GFR > 60 BUN/Creatinine Ratio 17.6 Glucose 103 H POC Whole Bld Glucose 73 Hemoglobin A1c 5.5 Calcium 9.7 Total Bilirubin 0.6 AST 70 H ALT 85 H Alkaline Phosphatase 106 Total Creatine Kinase 179 H Troponin I < 0.012 Total Protein 9.4 H Albumin 5.2 H Globulin 4.2 H Albumin/Globulin Ratio 1.2 Triglycerides 263 H Cholesterol 237 H LDL Cholesterol, Calc 141 H HDL Cholesterol 43 TSH 3.45 U Opiates 300ng/mL cut Negative Ur Oxycodone Screen Negative Urine Methadone Screen Negative Ur Barbiturates Screen Negative U Tricyclic Antidepress Negative Ur Phencyclidine Scrn Negative Ur Amphetamines Screen Negative U Methamphetamines Scrn Negative Ur MDMA Scrn (Ecstasy) Negative U Benzodiazepines Scrn Negative Urine Cocaine Screen Negative U Marijuana (THC) Screen Negative Urine pH Normal Urine Specific [place] Normal Ur Creatinine Normal PFSH Medical History BMI greater than 40 Excessive cerumen in right ear canal Skin change Elevated fasting glucose Umbilical hernia Acute bacterial sinusitis Excessive cerumen in left ear canal Weight loss counseling, encounter for Menorrhagia Healthy adult Surgical History History of third molar tooth extraction History of tonsillectomy Family History Mother No problems noted. Father No problems noted. Social History household members: spouse Smoking Status: Never smoker alcohol intake: current Discharge Plan Discharge Plan Patient Disposition: Home Provider Discharge Comment: Follow up with Dr. Low in 1 week. Ask for a referral to neurology. Discharge orders & Medications Prescriptions: New sumatriptan succinate [Imitrex] 50 mg tablet See Rx Instructions .ROUTE .COMPLEX Qty: 7 0RF Rx Instructions: take 1 tab at onset of headache; if no relief may repeat 1 tab after at least 2 hrs; max = 4 tabs/24 hr Continued magnesium 250 mg tablet 250 mg PO DAILY Follow up/Referrals: Agustín Low DO [Primary Care Provider, Family Practice] Diet/Activity/Treatments Diet: Regular Visit Report/Discharge Packet Stand Alone Forms: Patient Portal/API, Stroke Signs & Symptoms Discharge Data Primary Care Provider: Agustín Low Attending Provider: Edu Guerrero Admit Date/Time: 11/06/24 13:54 Quality VTE Deep Vein Thrombosis/Pulmonary Embolism Present on Admission: No
--- NOTE | 2024-11-07 12:49 | PC.NURSE ---
Pt is A&O x4, Patient d/c teaching done at bedside. Educated importance of f/u w/ PCP and getting a ref. to Neurology. Patient reports appt already sched. with PCP on . IV removed, tele removed. Pt declined assistance with dressing. States, spouse is coming to p/u.
--- NOTE | 2024-11-07 13:09 | CM.DANOTE ---
DCP Assessment note pt is a 44yo F admitted with stroke like symptoms vs migraine. MRI came back neg for TIA. PCP Agustín Kim and [facility]. [facility] reviewed EMR per chart, pt lives in [place] with spouse Herbert and children. indep/drives. per provider, cleared to dc today with OP PCP and neurology f/u. pt left prior to being seen by this [facility] messaged [facility] group P: dc home with spouse support and OP f/u. CM team will continue to follow as needed for DCP SAMMY Dacosta Discharge Planning/Care Management Advanced directive, confirm from FAMILY Start: 11/06/24 15:23 Freq: Q24H Status: Discharge Protocol: Document 11/06/24 15:46 CM (Rec: 11/06/24 15:46 CM [id number]) Advance Directive, confirm on record Time 15:46 Person contacted Pt Copy received No CM Discharge Assessment Start: 11/06/24 14:03 Freq: Status: Discharge Protocol: Document 11/07/24 13:04 SL (Rec: 11/07/24 13:05 SL Desktop) Discharge Planning Assessment Assigned Discharge SAMMY Wong Project [employer] Worker DPOA/Assigned Herbert, spouse Designee Name Contact Information [phone] Advance Directives? Yes Advance Directives No on File History Provided By Patient Prior Living House Arrangements Household Members spouse Type of Drives own vehicle transporation used prior to admit Independent with ADL Yes 's Is patient alert and Yes oriented? Discharge Plan Home Review Status In Process Please Provide Date 11/07/24 Initial DC Assessment Was Performed Next Review Type Continued Stay Review
== END 2024-11-07 12:59 | disposition home or self-care (01) ==
LOC: ED 12:19 → AC 13:57
PROVIDERS: Admitting Provider Hospitalist; Emergency Provider Family Medicine; PCP Family Medicine; Visit Provider Hospitalist
DX: R20.0 Anesthesia of skin (principal); R29.700 NIHSS score 0; R47.81 Slurred speech; E66.01 Morbid (severe) obesity due to excess calories; Z68.41 Body mass index [BMI] 40.0-44.9, adult
CPT/HCPCS: 36415; 70450; 70496; 70498; 70551; 71045; 80053; 80061; 80305; 81003; 82550; 82962; 83036; 84443; 84484; 85025; 85610; 85730; 92610; 93005; 93306; 96372; 97129; 97161; 97165; 97530; 99284; G0378; J1644; J3030; Q9967